=== PATIENT | female | born 1985 | race African-American/Black ===

== ENCOUNTER 2020-09-01 11:45 | Outpatient (REF) | payer MEDICARE, MEDICAID, SELFPAY ==
[2020-09-01 14:45] LABS: Alanine Aminotransferase 17 U/L (0-31); Albumin Level 4.3 g/dL (3.5-5.0); Alkaline Phosphatase 106 U/L (39-117); Aspartate Amino Transferase 14 U/L (5-31); Bilirubin Direct < 0.2 mg/dL (0.0-0.5); Bilirubin Total 0.4 mg/dL (0.0-1.0); Gamma Glutamyl Transpeptidase 63 U/L (7-33); Total Protein 7.3 g/dL (6.5-8.0)
== END 2020-09-01 11:46 | disposition home or self-care (01) ==
LOC: HO.10HDL 11:45
PROVIDERS: Visit Provider Internal Medicine Gastroenterology
DX: R93.2 Abnormal findings on diagnostic imaging of liver and biliary tract (principal)
CPT/HCPCS: 36415; 80076; 82977

== ENCOUNTER 2020-12-05 17:37 | Outpatient (REF) | payer MEDICARE, MEDICAID, SELFPAY ==
--- NOTE | ~2020-12-05 | XR_ITS ---
EXAMINATION: XR ABDOMEN COMPLETE CLINICAL INDICATION: Abdominal distention COMPARISON: None TECHNIQUE: 2 views of the abdomen. FINDINGS: There are slightly distended loops of small and large bowel questionable for an ileus. There is no evidence of obstruction. There is some stool seen in the colon. There is no evidence of free air. No calcifications are seen. Bony structures are unremarkable. XR/XR abdomen min 2V IMPRESSION: Slightly distended loops of small and large bowel questionable for an ileus. No evidence of obstruction or free air.
[2020-12-05 18:09] LABS: MANUAL DIFF FLAG NO
[2020-12-05 18:15] LABS: Basophils Percent Auto 0.6 % (0-2); Eosinophils Percent Auto 0.1 % (0-4); Hematocrit 42.2 % (37-47); Hemoglobin 13.6 g/dl (12.0-16.0); Imm Gran Abs Auto 0.04 X10*3/uL (0.00-0.03); Imm Gran Pct Auto 0.6 % (0.0-0.4); Lymphocytes Absolute Auto 2.3 X10*3/uL (1.2-4.9); Lymphocytes Percent Auto 32.7 % (20-40); Mean Corpuscular HGB Conc 32.2 g/dl (31.0-35.0); Mean Corpuscular Hemoglobin 30.1 pg (27.0-33.0); Mean Corpuscular Volume 93.4 fL (80-98); Mean Platelet Volume 12.6 fL (9.4-12.3); Monocytes Absolute Auto 0.7 X10*3/uL (0.1-1.2); Monocytes Percent Auto 10.2 % (2-11); Neutrophils Percent Auto 55.8 % (45-73); Platelet Count 186 X10*3/uL (160-400); Red Blood Count 4.52 X10*6/uL (4.20-5.50); Red Cell Distribution Width 12.8 % (11.0-16.0); White Blood Count 7.1 X10*3/uL (4.8-10.8)
[2020-12-05 18:34] LABS: Prothrombin Time 11.8 SEC (10.8-13.0)
[2020-12-05 18:38] LABS: Alanine Aminotransferase 19 U/L (0-31); Albumin Level 4.5 g/dL (3.5-5.0); Alkaline Phosphatase 121 U/L (39-117); Anion Gap 15 (12-20); Aspartate Amino Transferase 18 U/L (5-31); Bilirubin Total 0.3 mg/dL (0.0-1.0); Blood Urea Nitrogen 12 mg/dL (9-16); Calcium 9.6 mg/dL (8.4-10.2); Carbon Dioxide 29 mmol/L (22-29); Chloride 97 mmol/L (96-108); Estimated Glomerular Filt Rate > 60; Glucose Random 96 mg/dL (60-115); Partial Thromboplastin Time 39.9 SEC (24.1-38.0); Potassium 4.4 mmol/L (3.3-5.1); Sodium 137 mmol/L (135-145); Total Protein 7.8 g/dL (6.5-8.0)
== END 2020-12-05 17:38 | disposition home or self-care (01) ==
LOC: HO.XRAY 17:37
PROVIDERS: PCP Internal Medicine; Visit Provider Internal Medicine
DX: I10 Essential (primary) hypertension (principal); R14.0 Abdominal distension (gaseous); S30.1XXA Contusion of abdominal wall, initial encounter; X58.XXXA Exposure to other specified factors, initial encounter; Y93.9 Activity, unspecified; Y92.9 Unspecified place or not applicable; Y99.9 Unspecified external cause status
CPT/HCPCS: 36415; 74019; 80053; 85025; 85610; 85730

== ENCOUNTER 2021-04-24 16:51 | Outpatient (REF) | payer MEDICARE, MEDICAID, SELFPAY ==
[2021-04-24 17:40] LABS: Basophils Percent Auto 0.5 % (0-2); Eosinophils Percent Auto 0.1 % (0-4); Hemoglobin 13.2 g/dl (12.0-16.0); Imm Gran Abs Auto 0.04 X10*3/uL (0.00-0.03); Imm Gran Pct Auto 0.5 % (0.0-0.4); MANUAL DIFF FLAG SCAN; Mean Corpuscular Hemoglobin 30.6 pg (27.0-33.0); SCAN SMEAR FLAG 1
[2021-04-24 17:42] LABS: Hematocrit 39.9 % (37-47); Lymphocytes Absolute Auto 2.7 X10*3/uL (1.2-4.9); Lymphocytes Percent Auto 35.4 % (20-40); Mean Corpuscular HGB Conc 33.1 g/dl (31.0-35.0); Mean Corpuscular Volume 92.6 fL (80-98); Mean Platelet Volume 13.1 fL (9.4-12.3); Monocytes Absolute Auto 0.8 X10*3/uL (0.1-1.2); Monocytes Percent Auto 10.5 % (2-11); Platelet Count 164 X10*3/uL (160-400); Red Blood Count 4.31 X10*6/uL (4.20-5.50); Red Cell Distribution Width 12.6 % (11.0-16.0); White Blood Count 7.5 X10*3/uL (4.8-10.8)
[2021-04-24 17:43] LABS: PLT ABN DIST 1
[2021-04-24 17:51] LABS: Estimated Average Glucose 108 mg/dL; Hemoglobin A1c % 5.4 %
[2021-04-24 18:00] LABS: SLIDE REVIEW VERIFIED
[2021-04-24 18:01] LABS: Anion Gap 15 (12-20); Blood Urea Nitrogen 15 mg/dL (9-16); Calcium 9.8 mg/dL (8.4-10.2); Carbon Dioxide 26 mmol/L (22-29); Chloride 101 mmol/L (96-108); Cholesterol 200 mg/dL; Estimated Glomerular Filt Rate > 60; Glucose Random 125 mg/dL (60-115); HDL Cholesterol 46 mg/dL; LDL Cholesterol Calculated 116 mg/dl; Potassium 4.4 mmol/L (3.3-5.1); Sodium 138 mmol/L (135-145); Triglycerides 193 mg/dL
[2021-04-25 23:17] LABS: Prolactin 5.5 ng/mL
== END 2021-04-24 16:52 | disposition home or self-care (01) ==
LOC: HO.LAB 16:51
PROVIDERS: Visit Provider Psychiatry & Neurology Child & Adolescent Psychiatry
DX: F63.81 Intermittent explosive disorder (principal); Z79.899 Other long term (current) drug therapy
CPT/HCPCS: 36415; 80048; 80061; 83036; 84146; 85025

== ENCOUNTER 2021-05-25 16:46 | Outpatient (REF) | payer MEDICARE, MEDICAID, SELFPAY ==
--- NOTE | ~2021-05-25 | XR_ITS ---
EXAMINATION: XR CHEST CLINICAL INFORMATION: Shortness of breath. COMPARISON: None TECHNIQUE: 2 views of the chest were obtained. FINDINGS: No significant abnormality is noted involving the heart, lungs, mediastinum, bony thorax or soft tissues. Air is seen in the esophagus on the AP film but not the lateral film and is therefore likely of no significance. Consider contrast esophagram if there are any obstructive symptoms. XR/XR chest 2V IMPRESSION: Air in the esophagus on the AP film but not the lateral is likely insignificant. Consider contrast esophagram if there are any obstructive symptoms. Otherwise unremarkable examination.
[2021-05-25 17:36] LABS: Eosinophils Percent Auto 0.1 % (0-4); SCAN SMEAR FLAG 1
[2021-05-25 17:37] LABS: Basophils Absolute Auto 0.1 X10*3/uL (0.0-0.2); Basophils Percent Auto 0.6 % (0-2); Hematocrit 39.9 % (37-47); Imm Gran Abs Auto 0.04 X10*3/uL (0.00-0.03); Imm Gran Pct Auto 0.5 % (0.0-0.4); Lymphocytes Absolute Auto 2.2 X10*3/uL (1.2-4.9); Mean Corpuscular HGB Conc 32.6 g/dl (31.0-35.0); Mean Corpuscular Hemoglobin 30.2 pg (27.0-33.0); Mean Corpuscular Volume 92.6 fL (80-98); Monocytes Absolute Auto 0.7 X10*3/uL (0.1-1.2); Monocytes Percent Auto 8.8 % (2-11); Neutrophils Absolute Auto 4.9 X10*3/uL (2.0-8.3); Platelet Count 178 X10*3/uL (160-400); Red Blood Count 4.31 X10*6/uL (4.20-5.50); Red Cell Distribution Width 12.7 % (11.0-16.0)
[2021-05-25 17:40] LABS: MANUAL DIFF FLAG NO; PLT ABN DIST 1
[2021-05-25 17:44] LABS: Prothrombin Time 10.8 SEC (9.9-13.0)
[2021-05-25 18:21] LABS: Erythrocyte Sedimentation Rate 25 MM/HR (0-20)
[2021-05-25 18:47] LABS: Vitamin B12 429 pg/mL (200-900)
[2021-05-25 19:34] LABS: Estimated Average Glucose 111 mg/dL; Hemoglobin A1c % 5.5 %
[2021-05-25 19:40] LABS: Alanine Aminotransferase 18 U/L (0-31); Albumin Level 4.4 g/dL (3.5-5.0); Alkaline Phosphatase 118 U/L (39-117); Anion Gap 20 (12-20); Aspartate Amino Transferase 18 U/L (5-31); Bilirubin Total 0.3 mg/dL (0.0-1.0); Blood Urea Nitrogen 11 mg/dL (9-16); Calcium 9.3 mg/dL (8.4-10.2); Carbon Dioxide 24 mmol/L (22-29); Chloride 98 mmol/L (96-108); Cholesterol 199 mg/dL; Estimated Glomerular Filt Rate > 60; Glucose Random 151 mg/dL (60-115); HDL Cholesterol 42 mg/dL; LDL Cholesterol Calculated 133 mg/dl; Potassium 4.6 mmol/L (3.3-5.1); Sodium 137 mmol/L (135-145); Total Protein 7.5 g/dL (6.5-8.0); Triglycerides 122 mg/dL
[2021-05-25 19:59] LABS: Free T4 (Free Thyroxine) 0.93 ng/dL (0.71-1.85); Thyroid Stimulating Hormone 2.04 uIU/mL (0.32-4.0)
== END 2021-05-25 16:47 | disposition home or self-care (01) ==
LOC: HO.XRAY 16:46
PROVIDERS: Absent Provider Internal Medicine; PCP Internal Medicine; Visit Provider Nurse Practitioner Family
DX: R06.02 Shortness of breath (principal); R23.8 Other skin changes; E78.2 Mixed hyperlipidemia; E78.00 Pure hypercholesterolemia, unspecified
CPT/HCPCS: 36415; 71046; 80053; 80061; 82607; 82746; 83036; 84439; 84443; 85025; 85610; 85652

== ENCOUNTER 2021-07-17 16:33 | Outpatient (REF) | payer MEDICARE, MEDICAID, SELFPAY ==
[2021-07-17 17:32] LABS: Hemoglobin 13.4 g/dl (12.0-16.0); Imm Gran Abs Auto 0.05 X10*3/uL (0.00-0.03); Imm Gran Pct Auto 0.8 % (0.0-0.4); SCAN SMEAR FLAG 1
[2021-07-17 17:34] LABS: Basophils Percent Auto 0.6 % (0-2); Eosinophils Percent Auto 0.3 % (0-4); Hematocrit 40.6 % (37.0-47.0); Lymphocytes Absolute Auto 2.3 X10*3/uL (1.2-4.9); Lymphocytes Percent Auto 37.3 % (20-40); Mean Corpuscular Hemoglobin 30.1 pg (27.0-33.0); Mean Corpuscular Volume 91.2 fL (80.0-98.0); Mean Platelet Volume 12.8 fL (9.4-12.3); Monocytes Absolute Auto 1.1 X10*3/uL (0.1-1.2); Monocytes Percent Auto 17.6 % (2-11); Neutrophils Absolute Auto 2.7 x10*3/uL (2.0-8.3); Neutrophils Percent Auto 43.4 % (45-73); Platelet Count 174 X10*3/uL (160-400); Red Blood Count 4.45 X10*6/uL (4.20-5.50); Red Cell Distribution Width 13.4 % (11.0-16.0); White Blood Count 6.3 X10*3/uL (4.8-10.8)
[2021-07-17 17:37] LABS: PLT ABN DIST 1
[2021-07-17 17:44] LABS: Prothrombin Time 11.2 SEC (9.9-13.0)
[2021-07-17 17:47] LABS: Partial Thromboplastin Time 39.8 SEC (24.1-38.0)
== END 2021-07-17 16:34 | disposition home or self-care (01) ==
LOC: HO.LAB 16:33
PROVIDERS: PCP Internal Medicine; Visit Provider Internal Medicine
DX: T14.8XXA Other injury of unspecified body region, initial encounter (principal)
CPT/HCPCS: 36415; 85025; 85610; 85730

== ENCOUNTER 2021-08-15 15:03 | Outpatient (REF) | payer MEDICARE, MEDICAID, SELFPAY ==
[2021-08-15 15:44] LABS: Leukocytes Stool Qualitative NEGATIVE (NEGATIVE)
[2021-08-15 16:39] LABS: CDiff Gene PCR NEGATIVE (Negative)
== END 2021-08-15 15:04 | disposition home or self-care (01) ==
LOC: HO.LNP 15:03
PROVIDERS: Visit Provider Internal Medicine Gastroenterology
DX: R19.7 Diarrhea, unspecified (principal)
CPT/HCPCS: 87045; 87046; 87177; 87209; 87493; 89055

== ENCOUNTER 2021-08-21 16:31 | Outpatient (REF) | payer MEDICARE, MEDICAID, SELFPAY ==
[2021-08-21 16:51] LABS: MANUAL DIFF FLAG NO
[2021-08-21 17:30] LABS: Basophils Absolute Auto 0.1 X10*3/uL (0.0-0.2); Basophils Percent Auto 0.5 % (0-2); Eosinophils Absolute Auto 0.1 X10*3/uL (0.0-0.4); Eosinophils Percent Auto 0.5 % (0-4); Hematocrit 40.5 % (37.0-47.0); Hemoglobin 13.3 g/dl (12.0-16.0); Imm Gran Abs Auto 0.08 X10*3/uL (0.00-0.03); Imm Gran Pct Auto 0.9 % (0.0-0.4); Lymphocytes Percent Auto 32.5 % (20-40); Mean Corpuscular HGB Conc 32.8 g/dl (31.0-35.0); Mean Corpuscular Hemoglobin 30.3 pg (27.0-33.0); Mean Corpuscular Volume 92.3 fL (80.0-98.0); Mean Platelet Volume 12.5 fL (9.4-12.3); Monocytes Absolute Auto 1.1 X10*3/uL (0.1-1.2); Monocytes Percent Auto 12.1 % (2-11); Neutrophils Absolute Auto 4.9 x10*3/uL (2.0-8.3); Neutrophils Percent Auto 53.5 % (45-73); Platelet Count 186 X10*3/uL (160-400); Red Blood Count 4.39 X10*6/uL (4.20-5.50); Red Cell Distribution Width 13.8 % (11.0-16.0); White Blood Count 9.2 X10*3/uL (4.8-10.8)
[2021-08-21 17:39] LABS: Estimated Average Glucose 120 mg/dL; Hemoglobin A1c % 5.8 %
[2021-08-21 17:43] LABS: Anion Gap 15 (12-20); Blood Urea Nitrogen 17 mg/dL (9-16); Calcium 10.2 mg/dL (8.4-10.2); Carbon Dioxide 28 mmol/L (22-29); Chloride 98 mmol/L (96-108); Cholesterol 220 mg/dL; Estimated Glomerular Filt Rate > 60; Glucose Random 93 mg/dL (60-115); HDL Cholesterol 48 mg/dL; LDL Cholesterol Calculated 128 mg/dl; Potassium 4.5 mmol/L (3.3-5.1); Sodium 136 mmol/L (135-145); Triglycerides 221 mg/dL
[2021-08-21 18:03] LABS: Thyroid Stimulating Hormone 3.57 uIU/mL (0.32-4.0)
[2021-08-22 08:11] LABS: Prolactin 11.2 ng/mL
== END 2021-08-21 16:32 | disposition home or self-care (01) ==
LOC: HO.LAB 16:31
PROVIDERS: Visit Provider Psychiatry & Neurology Child & Adolescent Psychiatry
DX: F63.81 Intermittent explosive disorder (principal); F71 Moderate intellectual disabilities; Z79.899 Other long term (current) drug therapy
CPT/HCPCS: 36415; 80048; 80061; 83036; 84146; 84443; 85025

== ENCOUNTER 2021-08-29 14:40 | Outpatient (REF) | payer MEDICARE, MEDICAID, SELFPAY ==
--- NOTE | ~2021-08-29 | XR_ITS ---
EXAMINATION: XR CHEST CLINICAL INFORMATION: Cough COMPARISON: Previous chest x-ray April 2021 TECHNIQUE: 2 views of the chest were obtained. FINDINGS: No significant abnormality is noted involving the heart, lungs, mediastinum, bony thorax or soft tissues. XR/XR chest 2V IMPRESSION: Unremarkable examination.
== END 2021-08-29 14:41 | disposition home or self-care (01) ==
LOC: HO.LAB 14:40
PROVIDERS: PCP Internal Medicine; Visit Provider Internal Medicine
DX: R05.9 Cough, unspecified (principal)
CPT/HCPCS: 36415; 71046; 87045; 87046; 87177; 87209

== ENCOUNTER 2021-10-12 14:21 | Outpatient (REF) | payer MEDICARE, MEDICAID, SELFPAY ==
[2021-10-12 16:45] LABS: Influenza A PCR NEGATIVE (Negative); Influenza B PCR NEGATIVE (Negative); Resp Syncy Virus RNA Qual PCR NEGATIVE (Negative); SARS COV2 PCR INHOUSE NEGATIVE (Negative)
== END 2021-10-12 14:22 | disposition home or self-care (01) ==
LOC: HO.LAB 14:21
PROVIDERS: PCP Internal Medicine; Visit Provider Internal Medicine
DX: Z20.822 Contact with and (suspected) exposure to COVID-19 (principal); R05.9 Cough, unspecified
CPT/HCPCS: 0241U

== ENCOUNTER 2021-11-24 08:41 | Outpatient (REF) | payer MEDICARE, MEDICAID, SELFPAY ==
--- NOTE | ~2021-11-24 | US_ITS ---
EXAMINATION: US ABDOMEN COMPLETE CLINICAL INFORMATION: Elevated LFTs. Liver mass. COMPARISON: X-ray abdomen 12/05/2020. MRI abdomen 05/07/2018. CT abdomen 08/13/2016. Ultrasound abdomen limited 08/13/2016. Ultrasound abdomen complete 03/29/2016. TECHNIQUE: Real-time imaging of the abdominal viscera. FINDINGS: PANCREAS: Normal. ABDOMINAL AORTA: The proximal, mid, and distal segments are normal in caliber. INFERIOR VENA CAVA: Visualized portions are normal. LIVER: The liver is normal in size. The liver contour is normal. There is diffuse increased liver parenchymal echogenicity, consistent with hepatic steatosis. In the left lobe of the liver there is a heterogeneously hypoattenuating mass measuring 7.8 x 3.9 x 5.9 cm. This has associated mild Doppler vascularity. The overall size is without significant change, to slightly decreased from prior. There is no intrahepatic biliary duct dilatation seen. GALLBLADDER: Normal. The gallbladder is physiologically distended without evidence of stones, sludge, polyps, wall thickening or pericholecystic fluid. COMMON BILE DUCT: Normal in caliber measuring 0.4 cm in diameter. RIGHT KIDNEY: There is a hyperechoic area at the upper pole measuring 0.7 cm, possibly an angiomyolipoma. No hydronephrosis. No renal calculi. The kidney measures 9.3 cm in maximum dimension. LEFT KIDNEY: Normal. No hydronephrosis. No renal calculi or focal parenchymal lesions. The kidney measures 10.1 cm in maximum dimension. SPLEEN: Normal. The spleen measures 11.0 cm in maximum dimension. FREE FLUID: None. US/US abdomen complete IMPRESSION: Redemonstration of the mass in the left lobe of the liver which is similar to slightly decreased in size compared to previous imaging. No new liver lesion. Possible small angiomyolipoma in the right kidney.
== END 2021-11-24 08:42 | disposition home or self-care (01) ==
LOC: HO.HMGCX 08:41
PROVIDERS: Visit Provider Internal Medicine
DX: R79.89 Other specified abnormal findings of blood chemistry (principal); R16.0 Hepatomegaly, not elsewhere classified
CPT/HCPCS: 76700

== ENCOUNTER → 2021-12-26 10:18 | Outpatient (BNVA) | payer MEDICARE, MEDICAID, SELFPAY | PROVIDERS: PCP Internal Medicine; Visit Provider Dietitian, Registered | DX: R73.02 Impaired glucose tolerance (oral) (principal); Z71.3 Dietary counseling and surveillance | CPT/HCPCS: 97802 ==

== ENCOUNTER 2022-02-02 10:35 | Outpatient (REF) | payer MEDICARE, MEDICAID, SELFPAY ==
--- NOTE | 2022-02-02 10:56 | ECG_ITS ---
Test Reason : high risk meds Blood Pressure : / mmHG Vent. Rate : 080 BPM Atrial Rate : 080 BPM P-R Int : 160 ms QRS Dur : 074 ms QT Int : 362 ms P-R-T Axes : 039 014 031 degrees QTc Int : 417 ms Normal sinus rhythm Normal ECG When compared with ECG of 27-AUG-2019 16:27, No significant change was found Referred By: Dylon Ahumada Electronically Signed By:ABIMAEL DAIGLE
[2022-02-02 10:57] LABS: MANUAL DIFF FLAG NO
[2022-02-02 11:09] LABS: Basophils Percent Auto 0.3 % (0-2); Eosinophils Percent Auto 0.5 % (0-4); Hematocrit 40.3 % (37.0-47.0); Hemoglobin 13.4 g/dl (12.0-16.0); Imm Gran Abs Auto 0.04 X10*3/uL (0.00-0.03); Imm Gran Pct Auto 0.5 % (0.0-0.4); Lymphocytes Absolute Auto 2.1 X10*3/uL (1.2-4.9); Lymphocytes Percent Auto 26.9 % (20-40); Mean Corpuscular HGB Conc 33.3 g/dl (31.0-35.0); Mean Corpuscular Hemoglobin 30.9 pg (27.0-33.0); Mean Corpuscular Volume 92.9 fL (80.0-98.0); Mean Platelet Volume 12.2 fL (9.4-12.3); Monocytes Absolute Auto 1.1 X10*3/uL (0.1-1.2); Monocytes Percent Auto 13.7 % (2-11); Neutrophils Absolute Auto 4.6 x10*3/uL (2.0-8.3); Neutrophils Percent Auto 58.1 % (45-73); Platelet Count 213 X10*3/uL (160-400); Red Blood Count 4.34 X10*6/uL (4.20-5.50); White Blood Count 7.9 X10*3/uL (4.8-10.8)
[2022-02-02 11:17] LABS: Estimated Average Glucose 111 mg/dL; Hemoglobin A1c % 5.5 %
[2022-02-02 12:36] LABS: Alanine Aminotransferase 12 U/L (0-31); Albumin Level 4.3 g/dL (3.5-5.0); Alkaline Phosphatase 108 U/L (39-117); Anion Gap 15 (12-20); Aspartate Amino Transferase 13 U/L (5-31); Bilirubin Total 0.4 mg/dL (0.0-1.0); Blood Urea Nitrogen 13 mg/dL (9-16); Calcium 9.6 mg/dL (8.4-10.2); Carbon Dioxide 29 mmol/L (22-29); Chloride 99 mmol/L (96-108); Cholesterol 225 mg/dL; Estimated Glomerular Filt Rate > 60; Glucose Random 83 mg/dL (60-115); HDL Cholesterol 40 mg/dL; LDL Cholesterol Calculated 144 mg/dl; Potassium 4.5 mmol/L (3.3-5.1); Sodium 138 mmol/L (135-145); Total Protein 7.5 g/dL (6.5-8.0); Triglycerides 209 mg/dL
[2022-02-02 12:46] LABS: Thyroid Stimulating Hormone 1.88 uIU/mL (0.32-4.0)
== END 2022-02-02 10:36 | disposition home or self-care (01) ==
LOC: HO.LAB 10:35
PROVIDERS: Psychiatry & Neurology Child & Adolescent Psychiatry; Absent Provider Ophthalmology; PCP Internal Medicine; Visit Provider Internal Medicine
DX: F63.81 Intermittent explosive disorder (principal); Z79.899 Other long term (current) drug therapy
CPT/HCPCS: 36415; 80053; 80061; 83036; 84146; 84443; 85025; 93005

== ENCOUNTER 2022-06-18 11:23 | Outpatient (REF) | payer MEDICARE, MEDICAID, SELFPAY ==
[2022-06-21 01:57] LABS: HPV mRNA E6/E7 rflx Not Detected (Not Detected)
== END 2022-06-18 11:24 | disposition home or self-care (01) ==
LOC: HO.LNP 11:23
PROVIDERS: Visit Provider Advanced Practice Midwife
DX: Z01.419 Encounter for gynecological examination (general) (routine) without abnormal findings (principal); Z11.51 Encounter for screening for human papillomavirus (HPV)
CPT/HCPCS: 87624; 88142

== ENCOUNTER 2022-09-12 13:28 | Outpatient (REF) | payer MEDICARE, MEDICAID, SELFPAY ==
--- NOTE | ~2022-09-12 | XR_ITS ---
EXAMINATION: XR CHEST CLINICAL INFORMATION: Cough. COMPARISON: Chest radiograph 08/29/2021. TECHNIQUE: 2 views of the chest. FINDINGS: Clear lungs. No pneumothorax or pleural effusion. Unchanged cardiomediastinal silhouette. XR/XR chest 2V IMPRESSION: Clear lungs.
[2022-09-12 13:47] LABS: MANUAL DIFF FLAG NO
[2022-09-12 14:37] LABS: Estimated Average Glucose 117 mg/dL; Hemoglobin A1c % 5.7 %
[2022-09-12 14:41] LABS: Basophils Absolute Auto 0.1 X10*3/uL (0.0-0.2); Basophils Percent Auto 0.5 % (0-2); Eosinophils Absolute Auto 0.1 X10*3/uL (0.0-0.4); Eosinophils Percent Auto 1.2 % (0-4); Hemoglobin 13.4 g/dl (12.0-16.0); Imm Gran Abs Auto 0.05 X10*3/uL (0.00-0.03); Imm Gran Pct Auto 0.5 % (0.0-0.4); Lymphocytes Absolute Auto 2.5 X10*3/uL (1.2-4.9); Lymphocytes Percent Auto 27.3 % (20-40); Mean Corpuscular HGB Conc 32.7 g/dl (31.0-35.0); Mean Corpuscular Hemoglobin 30.2 pg (27.0-33.0); Mean Corpuscular Volume 92.3 fL (80.0-98.0); Mean Platelet Volume 13.2 fL (9.4-12.3); Monocytes Percent Auto 11.3 % (2-11); Neutrophils Absolute Auto 5.5 x10*3/uL (2.0-8.3); Neutrophils Percent Auto 59.2 % (45-73); Platelet Count 172 X10*3/uL (160-400); Red Blood Count 4.44 X10*6/uL (4.20-5.50); Red Cell Distribution Width 13.3 % (11.0-16.0); White Blood Count 9.2 X10*3/uL (4.8-10.8)
[2022-09-12 15:01] LABS: B Type Natriuretic Peptide 22 pg/mL (<100)
[2022-09-12 15:21] LABS: Alanine Aminotransferase 12 U/L (0-31); Albumin Level 4.1 g/dL (3.5-5.0); Alkaline Phosphatase 93 U/L (39-117); Anion Gap 15 (12-20); Aspartate Amino Transferase 20 U/L (5-31); Bilirubin Total 0.2 mg/dL (0.0-1.0); Blood Urea Nitrogen 16 mg/dL (9-16); Calcium 9.5 mg/dL (8.4-10.2); Carbon Dioxide 27 mmol/L (22-29); Chloride 99 mmol/L (96-108); Estimated Glomerular Filt Rate > 60; Glucose Random 108 mg/dL (60-115); Potassium 4.8 mmol/L (3.3-5.1); Sodium 136 mmol/L (135-145); Total Protein 7.6 g/dL (6.5-8.0)
[2022-09-12 15:32] LABS: Free T4 (Free Thyroxine) 0.93 ng/dL (0.71-1.85); Thyroid Stimulating Hormone 2.29 uIU/mL (0.32-4.0); Vitamin D 25-OH Total 24.7 ng/mL (>30)
[2022-09-12 15:47] LABS: Folate 12.6 ng/mL (> or = 4.0); Vitamin B12 482 pg/mL (200-900)
== END 2022-09-12 13:29 | disposition home or self-care (01) ==
LOC: HO.XRAY 13:28
PROVIDERS: PCP Internal Medicine; Visit Provider Internal Medicine
DX: R73.02 Impaired glucose tolerance (oral) (principal); R05.9 Cough, unspecified; R58 Hemorrhage, not elsewhere classified; E03.9 Hypothyroidism, unspecified; E55.9 Vitamin D deficiency, unspecified
CPT/HCPCS: 36415; 71046; 80053; 80164; 82306; 82607; 82746; 83036; 83880; 84439; 84443; 85025

== ENCOUNTER 2023-03-14 14:02 | Outpatient (AMB) | payer MEDICARE, MEDICAID, SELFPAY ==
[2023-03-14 14:09] VITALS: BP 118/82; PULSE 89; O2SAT 100; BMI 40.0
--- NOTE | 2023-03-14 14:09 | AM.OFFVISMDC ---
Intake Vital Signs 03/14/23 14:09 Height 4 ft 9 in Weight 185 lb BMI 40.0 BP 118/82 Blood Pressure Location Lt brachial Position Sitting Pulse 89 Pulse Source Pulse Oximeter Temp Source Skin Pulse Oximetry (%) 100 Oxygen Delivery Method Room Air Intake Visit Reasons: SAWV Intake Note: Patient is here for an Annual Wellness Visit. Corrections Corporal Required: No Allergies amoxicillin [Augmentin] Allergy (Unknown, Verified 03/14/23 14:20) Unknown clavulanic acid [Augmentin] Allergy (Unknown, Verified 03/14/23 14:20) Unknown Medication List - Last Reconciled 03/14/23 by WENDY Deras acetaminophen ER (Mapap Arthritis Pain) 650 mg PO Q4H PRN ammonium lactate 12% appl topical bacitracin apply a dab topical TO AFFECTED AREA TWICE WEEKLY PRN; bisoprolol fumarate 5 mg (1/2 x 10 mg) PO QAM 90 days blood pressure monitor (Blood Pressure Kit) As directed TWICE PER DAY cetirizine (Zyrtec) 10 mg PO DAILY 30 days cholecalciferol (vitamin D3) 25 mcg PO DAILY 90 days citalopram 10 mg PO DAILY clindamycin phosphate 1% 1 appl topical BID cromolyn 4% 1 drp ophthalmic (eye) QID PRN 7 days disposable gloves (Nitrile Exam Gloves) MEDIUM SIZE DX: F79, R32 EXTERNAL EIGHT TIMES A DAY divalproex ER 500 mg PO BID 90 days fluticasone propionate 50 mcg/actuation (Flonase Allergy Relief) 2 sprays intranasal DAILY guaifenesin (Siltussin SA) 200 mg (10 mL) PO Q4H PRN methenamine hippurate (Hiprex) 1 g PO BID 90 days Fall Risk Assessment Fall risk assessment: No Falls in past year Date Fall Risk Assessed: 03/14/23 HPI SAWV HPI Details Patient is a 38-year-old female presents today for subsequent wellness visit. Patient of Dr. Llanos. Patient is accompanied today by a engineering group leader and her guardian sister Denise. Medical history significant for epilepsy-followed by [facility] Neurology, dilated cardiomyopathy-followed by [facility] cardiology, morbid obesity, mental disability, hyperlipidemia, aortic stenosis, impaired glucose tolerance among others. Patient is up-to-date with immunizations. Pap smear normal 05/2022 with [facility]. Patient has order for A1c, they were encouraged to complete blood work. Cachil Dehe of care was reviewed with the guardian and engineering group leader and they were provided with a screening schedule. The guardian was provided with healthcare proxy and MOLST forms. Copy was made of the guardian document and placed in scanning bin. [facility] Medical History (Updated 03/14/23 @ 16:56 by WENDY Deras) Abdominal bloating Abscess of right axilla Aortic insufficiency COVID-19 virus infection Dilated cardiomyopathy Epilepsy Liver mass Mental disability Mixed hyperlipidemia Morbid obesity with BMI of 40.0-44.9, adult Postprandial diarrhea Superficial bruising of abdominal wall UTI (urinary tract infection) Vitamin D deficiency Surgical History No pertinent past surgical history Family History Father No problems noted. Mother Heart problem Social History Housing: Assisted Living Facility Alcohol intake: never Patient Tobacco Use Status: Never used Tobacco e-Cigarette/Vaping Use: Never Used service: No Current occupational status: disabled Cognitive needs: Yes Hearing needs: No Vision needs: Yes Questionnaire Medicare Wellness Checkup What [age] your [age]?: 65-69 (38) What gender do you identify with?: female During the past 4 weeks, how much have you been bothered by emotional problems such as feeling anxious, depressed, irritable, sad or downhearted, and blue?: not at all During the past 4 weeks, has your physical & emotional health limited your social activities with family, friends, neighbors, or groups?: not at all During the past 4 weeks, how much bodily pain have you generally had?: no pain During the past 4 weeks, was someone available to help you if you needed & wanted help?: yes, as much as I wanted During the past 4 weeks, what was the hardest physical activity you could do for at least 2 minutes?: very light Can you get to places out of walking distance without help? (For eg., can you travel alone on buses, taxis or drive your car?): No Can you go shopping for groceries or clothes without someone's help?: No Can you prepare your own meals?: No Can you do your housework without help?: No Because of any health problems, do you need the help of another person with your personal care needs such as eating, bathing, dressing or getting around the house?: Yes Can you handle your own money without help?: No During the past 4 weeks, how would you rate your health in general?: good During the past 4 weeks how have things been going for you?: pretty well Are you having difficulties driving your car?: not applicable, I don't use a car Do you always fasten your seat belt when you are in a car?: yes, usually During past 4 weeks, have you been bothered by the following: never: Falling or dizzy when standing up, Sexual problems? and Problems using the telephone?, seldom: Tiredness or fatigue? and sometimes: Trouble eating well? and Teeth or denture problems? Have you fallen 2 or more times in the past year?: No Are you afraid of falling?: No Are you a smoker?: no During the past 4 weeks, how many drinks of wine, beer, or other alcoholic beverages did you have?: no alcohol at all Do you exercise for about 20 minutes 3 or more times a week?: yes, some of the time How often do you have trouble taking medicines the way you have been told to take them?: I always take medicine as prescribed How confident are you that you can control & manage most of your health problems?: somewhat confident What is your race?: White Mini Mental State Exam (MMSE) Orientation What is the (year) (season) (date) (day) (month)?: month (a and o to self only ) Score Score: 1 Activity of Daily Living Bathing - sponge bath, tub bath or shower: receives help in bathing only one body part (such as back or leg) Dressing - getting clothes from closets & drawers, including inner/outer garments & fasteners.: gets clothes & gets dressed without help, except for help tying shoes Toileting - going to the 'toilet room' for urine/bowel elimination & cleaning self/arranging clothes: receives help going to toilet room, cleaning self or arranging clothes Transfer: moves in & out of bed and chair without help (may use support object) Continence: controls urination/bowel movements completely by self Feeding: feeds self without help Total Score: 0 Information obtained from: informant Using telephone: dependent Traveling: dependent Shopping: dependent Preparing meals: dependent Housework: dependent Taking medicine: dependent Managing money: dependent PHQ-9 Over the last 2 weeks, how often have you been bothered by any of the following problems? 1. Little interest or pleasure in doing things: not at all 2. Feeling down, depressed, or hopeless: not at all 3. Trouble falling or staying asleep, or sleeping too much: not at all 4. Feeling tired or having little energy: not at all 5. Poor appetite or overeating: not at all 6. Feeling bad about yourself - or that you are a failure or have let yourself or your family down: not at all 7. Trouble concentrating on things, such as reading the newspaper or watching television: not at all 8. Moving or speaking so slowly that other people could have noticed. Or the opposite - being so fidgety or restless that you have been moving around a lot more than usual: not at all 9. Thoughts that you would be better off or of hurting yourself in some way: not at all Total score: 0 Depression Screening Interpretation: Negative 48249 - PHQ-9 Billing: Yes Source: Developed by Drs. Jonas Stoll, Patsy Vidal, Fabián Fernandes and colleagues, with an educational haile from [employer]. SAVANNAH-7 AMB Questionnaire SAVANNAH-7 Date SAVANNAH - 7 assessed: 03/14/23 Feeling nervous, anxious, or on edge: 0 = Not at all Not being able to stop or control worryin = Not at all Worrying too much about different things: 0 = Not at all Trouble relaxin = Not at all Being so restless that it is hard to sit still: 0 = Not at all Becoming easily annoyed or irritable: 0 = Not at all Feeling afraid as if something awful might happen: 0 = Not at all Total SAVANNAH-7 score (0-4 normal; 5-9 mild; 10-14 moderate; 15-21 severe): 0 Source: Developed by Drs. Jonas Stoll, Fabián Jean and colleagues, with an educational haile from [employer]. SAVANNAH-7 Assessment Billing SAVANNAH-7 Assessment Tool: SAVANNAH-7 Assessment 06047 AUDIT C Alcohol Use Questionnaire (AUDIT-C) 1. How often do you have a drink containing alcohol?: Never 3. How often do you have six or more drinks on one occasion?: Never Total Score: 0 Score Reviewed/Action Taken: No Thrive Questionnaire Date Thrive assessed: 03/14/23 I am a: Patient What is your living situation today?: I have a steady place to live Within the past 12 months, did the food you bought not last and you didn't have the money to get more?: Never true Within the past 12 months, did you worry whether your food would run out before you got money to buy more?: Never true Currently or been in a relationship where the following occur: no concerns reported Physical Exam Vital Signs: Last Vital Signs Pulse 89 03/14/23 14:09 BP 118/82 03/14/23 14:09 Pulse Ox 100 03/14/23 14:09 Oxygen Delivery Method Room Air 03/14/23 14:09 BMI result Body Mass Index 40.0 Const General: cooperative and no acute distress Orientation/consciousness: oriented to person HEENT Other: Whisper test: fail Neuro Other: Balance: Normal Get up and walk: unable to Romberg: negative Tandem gait: unable to General: oriented to person Assessment & Plan Assessment & Plan (1) Impaired glucose tolerance: Comment: Per staff reports: diarrhea is lessening after switching to lactose free options May recommend assessing for celiac if symptoms continue Code(s): R73.02 - Impaired glucose tolerance (oral) Plan: They were encouraged to complete A1c blood work (2) Mixed hyperlipidemia: Code(s): E78.2 - Mixed hyperlipidemia Plan: Low-cholesterol diet and weight loss (3) Mental disability: Code(s): F79 - Unspecified intellectual disabilities (4) Morbid obesity with BMI of 40.0-44.9, adult: Code(s): E66.01 - Morbid (severe) obesity due to excess calories; Z68.41 - Body mass index [BMI] 40.0-44.9, adult Plan: Healthy food choices and exercise as tolerated (5) Dilated cardiomyopathy: Code(s): I42.0 - Dilated cardiomyopathy Plan: Continue to follow-up with [facility] cardiology (6) Epilepsy: Comment: EEG negative February 2019 Code(s): G40.909 - Epilepsy, unspecified, not intractable, without status epilepticus Qualifiers: Epilepsy type: unspecified Intractability: not intractable Status epilepticus: without status epilepticus Qualified Code(s): G40.909 - Epilepsy, unspecified, not intractable, without status epilepticus Plan: Continue to follow-up with [facility] Neurology (7) Medicare annual wellness visit, subsequent: Code(s): Z00.00 - Encounter for general adult medical examination without abnormal findings Quality Reporting (2019) Fall Risk Screening ([facility] 139) Last assessed Fall Risk: 03/14/23 Fall risk assessment: No Falls in past year Depression/Bipolar (159/160/161/177) PHQ-9: Total score: 0 Coding Level of Care Code Medicare Subsequent (G0439) Diagnoses Impaired glucose tolerance R73.02 Mixed hyperlipidemia E78.2 Mental disability F79 Morbid obesity with BMI of 40.0-44.9, adult E66.01; Z68.41 Dilated cardiomyopathy I42.0 Epilepsy G40.909 Epilepsy type: unspecified Intractability: not intractable Status epilepticus: without status epilepticus Medicare annual wellness visit, subsequent Z00.00 CPT Codes Advance Care Planning - Time spent: 1-15 minutes, not on file ([id number]) Additional Codes SAVANNAH-7 Assessment Billing - SAVANNAH-7 Assessment Tool: SAVANNAH-7 Assessment [id number] ([id number]) Advance Care Planning Date of discussion: 03/14/23 Who was present: pt, guardian, client solutions specialist Forms completed: None Time spent: 1-15 minutes, not on file Actual minutes spent: 2 Did not discuss due to Cultural/Spiritual beliefs: No
== END 2023-03-14 14:42 | disposition home or self-care (01) ==
PROVIDERS: PCP Internal Medicine; Visit Provider Nurse Practitioner Family
DX: Z00.00 Encounter for general adult medical examination without abnormal findings (principal); E66.01 Morbid (severe) obesity due to excess calories; Z68.41 Body mass index [BMI] 40.0-44.9, adult; I42.0 Dilated cardiomyopathy; G40.909 Epilepsy, unspecified, not intractable, without status epilepticus; R73.02 Impaired glucose tolerance (oral); E78.2 Mixed hyperlipidemia; F79 Unspecified intellectual disabilities
CPT/HCPCS: 1124F; G0439

== ENCOUNTER 2023-03-18 06:10 | Outpatient (REF) | payer MEDICARE, MEDICAID, SELFPAY ==
[2023-03-18 07:21] LABS: Hemoglobin 13.5 g/dl (12.0-16.0); Mean Corpuscular Volume 94.2 fL (80.0-98.0); SCAN SMEAR FLAG 1
[2023-03-18 07:23] LABS: Basophils Percent Auto 0.5 % (0-2); Eosinophils Absolute Auto 0.1 X10*3/uL (0.0-0.4); Hematocrit 42.5 % (37.0-47.0); Imm Gran Abs Auto 0.05 X10*3/uL (0.00-0.03); Imm Gran Pct Auto 0.6 % (0.0-0.4); Lymphocytes Absolute Auto 2.7 X10*3/uL (1.2-4.9); Lymphocytes Percent Auto 33.9 % (20-40); MANUAL DIFF FLAG SCAN; Mean Corpuscular HGB Conc 31.8 g/dl (31.0-35.0); Mean Corpuscular Hemoglobin 29.9 pg (27.0-33.0); Monocytes Absolute Auto 1.1 X10*3/uL (0.1-1.2); Monocytes Percent Auto 13.3 % (2-11); Neutrophils Absolute Auto 4.1 x10*3/uL (2.0-8.3); Neutrophils Percent Auto 50.7 % (45-73); PLT CLUMP 1; Red Blood Count 4.51 X10*6/uL (4.20-5.50); Red Cell Distribution Width 12.8 % (11.0-16.0)
[2023-03-18 07:27] LABS: PLT ABN DIST 1
[2023-03-18 07:58] LABS: Estimated Average Glucose 105 mg/dL; Hemoglobin A1c % 5.3 %
[2023-03-18 08:16] LABS: Alanine Aminotransferase 14 U/L (0-31); Alkaline Phosphatase 85 U/L (39-117); Anion Gap 19 (12-20); Aspartate Amino Transferase 14 U/L (5-31); Bilirubin Total 0.3 mg/dL (0.0-1.0); Blood Urea Nitrogen 11 mg/dL (9-16); Calcium 9.6 mg/dL (8.4-10.2); Carbon Dioxide 23 mmol/L (22-29); Chloride 103 mmol/L (96-108); Cholesterol 190 mg/dL; Estimated Glomerular Filt Rate > 60; Glucose Random 91 mg/dL (60-115); HDL Cholesterol 37 mg/dL; LDL Cholesterol Calculated 117 mg/dl; Potassium 4.5 mmol/L (3.3-5.1); Sodium 140 mmol/L (135-145); Total Protein 7.5 g/dL (6.5-8.0); Triglycerides 181 mg/dL
[2023-03-18 08:19] LABS: Free T4 (Free Thyroxine) 0.78 ng/dL (0.71-1.85); Thyroid Stimulating Hormone 2.32 uIU/mL (0.32-4.0); Vitamin D 25-OH Total 29.5 ng/mL (>30)
[2023-03-18 08:32] LABS: Folate 9.6 ng/mL (> or = 4.0); Vitamin B12 562 pg/mL (200-900)
[2023-03-18 08:34] LABS: Platelet Count 128 X10*3/uL (160-400)
[2023-03-18 08:35] LABS: SLIDE REVIEW VERIFIED
== END 2023-03-18 06:11 | disposition home or self-care (01) ==
LOC: HO.LAB 06:10
PROVIDERS: PCP Internal Medicine; Visit Provider Internal Medicine
DX: E78.00 Pure hypercholesterolemia, unspecified (principal); R73.02 Impaired glucose tolerance (oral); E55.9 Vitamin D deficiency, unspecified
CPT/HCPCS: 36415; 80053; 80061; 82306; 82607; 82746; 83036; 84439; 84443; 85025

== ENCOUNTER 2023-03-22 14:15 | Outpatient (REF) | payer MEDICARE, MEDICAID, SELFPAY | END 2023-03-22 14:16 | disposition home or self-care (01) | LOC: HO.SH 14:15 | PROVIDERS: Visit Provider Internal Medicine | DX: H90.3 Sensorineural hearing loss, bilateral (principal) | CPT/HCPCS: 92550; 92553; 92555; 92583; 92588 ==

== ENCOUNTER 2023-06-26 09:40 | Outpatient (AMB) | payer MEDICARE, MEDICAID, SELFPAY ==
[2023-06-26 09:52] VITALS: BP 116/68; PULSE 72; O2SAT 98; BMI 38.5
--- NOTE | 2023-06-26 09:52 | MHC.PC.OV ---
Vital Signs 06/26/23 09:52 Height 4 ft 9 in Weight 178 lb BMI 38.5 BP 116/68 Blood Pressure Location Lt brachial Position Sitting Pulse 72 Pulse Source Pulse Oximeter Pulse Oximetry (%) 98 Oxygen Delivery Method Room Air Intake Visit Reasons: HLD Allergies amoxicillin [Augmentin] Allergy (Unknown, Verified 06/26/23 09:52) Unknown clavulanic acid [Augmentin] Allergy (Unknown, Verified 06/26/23 09:52) Unknown Tobacco use date assessed: 09/12/22 Dental Screening Dental Screen Date: 06/26/23 Did you have a dental visit in the last 12 months?: Yes Did you have a dental problem in the last 6 months where you did not have access to dental care?: No Was dental information given to patient?: Patient has dentist HPI HLD HPI Details 38-year-old morbid obese female with developmental delay seizures, nonischemic cardiomyopathy (recovered) hypercholesterolemia impaired glucose tolerance coming in for follow-up. Patient was last seen in November 2022. Patient has followed up with Cardiology in April 2023 advised transthoracic echo. Patient did see the nurse practitioner in February for annual well visit blood work done in February noted thrombocytopenia [facility] Medical History (Updated 06/26/23 @ 10:23 by Satish Llanos MD) COVID-19 virus infection Liver mass Aortic insufficiency Abscess of right axilla Abdominal bloating Superficial bruising of abdominal wall Mixed hyperlipidemia Mental disability Vitamin D deficiency Morbid obesity with BMI of 40.0-44.9, adult Dilated cardiomyopathy Epilepsy Postprandial diarrhea UTI (urinary tract infection) Surgical History No pertinent past surgical history Family History Father No problems noted. Mother Heart problem Social History Housing: Assisted Living Facility Alcohol intake: never Patient Tobacco Use Status: Never used Tobacco e-Cigarette/Vaping Use: Never Used service: No Current occupational status: disabled Cognitive needs: Yes Hearing needs: No Vision needs: Yes Questionnaire PHQ-9 Over the last 2 weeks, how often have you been bothered by any of the following problems? 1. Little interest or pleasure in doing things: not at all 2. Feeling down, depressed, or hopeless: not at all 3. Trouble falling or staying asleep, or sleeping too much: not at all 4. Feeling tired or having little energy: not at all 5. Poor appetite or overeating: not at all 6. Feeling bad about yourself - or that you are a failure or have let yourself or your family down: not at all 7. Trouble concentrating on things, such as reading the newspaper or watching television: not at all 8. Moving or speaking so slowly that other people could have noticed. Or the opposite - being so fidgety or restless that you have been moving around a lot more than usual: not at all 9. Thoughts that you would be better off or of hurting yourself in some way: not at all Total score: 0 Depression Screening Interpretation: Negative Depression Screening Done: Yes 51905 - PHQ-9 Billing: Yes Source: Developed by Drs. Jonas Stoll, Patsy Vidal, Fabián Fernandes and colleagues, with an educational haile from [employer]. Thrive Questionnaire Date Thrive assessed: 03/14/23 AUDIT C Alcohol Use Questionnaire (AUDIT-C) 1. How often do you have a drink containing alcohol?: Never 3. How often do you have six or more drinks on one occasion?: Never Total Score: 0 Score Reviewed/Action Taken: No SAVANNAH-7 AMB Questionnaire SAVANNAH-7 Date SAVANNAH - 7 assessed: 03/14/23 Source: Developed by Drs. Jonas Stoll, Patsy Vidal, Fabián Fernandes and colleagues, with an educational haile from [employer]. Physical exam (Primary Care) Vital Signs: Last Vital Signs Pulse 72 06/26/23 09:52 BP 116/68 06/26/23 09:52 Pulse Ox 98 06/26/23 09:52 Oxygen Delivery Method Room Air 06/26/23 09:52 BMI result Body Mass Index 38.5 Tobacco/Smoking Status: Tobacco use Status Tobacco use date assessed 09/12/22 06/26/23 09:55 Patient Tobacco Use Status Never used Tobacco 06/26/23 09:55 e-Cigarette/Vaping Use Never Used 06/26/23 09:55 PHQ-9: PHQ-9 Score PHQ-9: Total score 0 06/26/23 09:55 Depression Screening Interpretation: Negative Thrive Assessment: Date of Thrive Assessment Date Thrive assessed 03/14/23 06/26/23 09:55 Const General: alert; No acute distress Eyes Conjunctivae: conjunctivae normal Resp Auscultation: clear to auscultation bilaterally Cardio Rate: regular rate Rhythm: regular rhythm GI Inspection: Yes normal to inspection Extrem General: Yes normal to inspection and No edema Office Procedures Flu Questionnaire Does the patient have a severe egg allergy?: No Does the patient have severe life threatening allergies?: No Does the patient have a fever or illness today?: No Has the patient ever had Guillain-Lutts Syndrome?: No Has the patient ever had any past reaction to a flu shot?: No Immunizations flu vacc [id number] 6mos up(PF) 60 mcg(15 mcgx4)/0.5 mL IM syringe Performing Provider: Satish Llanos MD Performing Location: [facility] Administered by: Carolina Yanez CMA on 06/26/23 10:12 Dose Route Admin Location Dispensed Lot Number Expiration Date NDC Supervisor [employer] 0.5 mL IM Left Deltoid 0.5 mL [id number] 02/23/24 85227-861-04 [employer] VIS Given Date VIS Provided VIS Publication Date 06/26/23 Single Vaccine 21 Eligibility Eligibility Date Funding Source Not [facility] Eligible 06/26/23 Private Assessment and Plan Assessment & Plan (1) Dilated cardiomyopathy: Code(s): I42.0 - Dilated cardiomyopathy Plan: PAtient follow up with cardiology and echocardiogram pending (2) Obesity: Code(s): E66.9 - Obesity, unspecified Plan: Continue with diet and exercise (3) Impaired glucose tolerance: Comment: Per staff reports: diarrhea is lessening after switching to lactose free options May recommend assessing for celiac if symptoms continue Code(s): R73.02 - Impaired glucose tolerance (oral) Plan: Decrease the amount of carbohydrate intake, pasta, bread, rice and potatoes are all sugar and that is aside from all the sweet stuff, remember that fruits are good but they are Sweet also. February 2023 blood work normal (4) Mixed hyperlipidemia: Code(s): E78.2 - Mixed hyperlipidemia Plan: Avoid fried foods, chicken skin, eggs, butter margarine, pastries and meat. Be it pork or beef they have a lot of cholesterol February 2023 blood work (5) Mental disability: Code(s): F79 - Unspecified intellectual disabilities Plan: Continue with present medication (6) Epilepsy: Comment: EEG negative February 2019 Code(s): G40.909 - Epilepsy, unspecified, not intractable, without status epilepticus Qualifiers: Epilepsy type: unspecified Intractability: not intractable Status epilepticus: without status epilepticus Qualified Code(s): G40.909 - Epilepsy, unspecified, not intractable, without status epilepticus Plan: Stable (7) Thrombocytopenia: Code(s): D69.6 - Thrombocytopenia, unspecified Plan: will repeat test Orders: Orders Complete Blood Count Auto Diff Today D69.6 - Thrombocytopenia, unspecified Influenza [id number] Immunization Today Z23 - Encounter for immunization Coding Level of Care Code Est Pt Level 4 (43740) Diagnoses Dilated cardiomyopathy I42.0 Obesity E66.9 Impaired glucose tolerance R73.02 Mixed hyperlipidemia E78.2 Mental disability F79 Nonintractable epilepsy without status epilepticus, unspecified epilepsy type G40.909 Epilepsy type: unspecified Intractability: not intractable Status epilepticus: without status epilepticus Thrombocytopenia D69.6
== END 2023-06-26 10:38 | disposition home or self-care (01) ==
PROVIDERS: PCP Internal Medicine; Visit Provider Internal Medicine
DX: Z23 Encounter for immunization (principal); E78.2 Mixed hyperlipidemia; I42.0 Dilated cardiomyopathy; G40.909 Epilepsy, unspecified, not intractable, without status epilepticus
CPT/HCPCS: 90471; 90686; 99214

== ENCOUNTER 2023-07-12 16:43 | Outpatient (REF) | payer MEDICARE, MEDICAID, SELFPAY ==
[2023-07-12 16:55] LABS: MANUAL DIFF FLAG NO
[2023-07-12 17:00] LABS: Basophils Percent Auto 0.4 % (0-2); Eosinophils Absolute Auto 0.1 X10*3/uL (0.0-0.4); Eosinophils Percent Auto 0.6 % (0-4); Hematocrit 41.5 % (37.0-47.0); Hemoglobin 13.7 g/dl (12.0-16.0); Imm Gran Abs Auto 0.02 X10*3/uL (0.00-0.03); Imm Gran Pct Auto 0.2 % (0.0-0.4); Lymphocytes Absolute Auto 3.2 X10*3/uL (1.2-4.9); Lymphocytes Percent Auto 34.3 % (20-40); Mean Corpuscular Hemoglobin 30.4 pg (27.0-33.0); Mean Corpuscular Volume 92.2 fL (80.0-98.0); Mean Platelet Volume 12.7 fL (9.4-12.3); Monocytes Absolute Auto 0.9 X10*3/uL (0.1-1.2); Monocytes Percent Auto 9.4 % (2-11); Neutrophils Absolute Auto 5.2 x10*3/uL (2.0-8.3); Neutrophils Percent Auto 55.1 % (45-73); Platelet Count 155 X10*3/uL (160-400); Red Cell Distribution Width 12.8 % (11.0-16.0); White Blood Count 9.5 X10*3/uL (4.8-10.8)
== END 2023-07-12 16:44 | disposition home or self-care (01) ==
LOC: HO.LAB 16:43
PROVIDERS: PCP Internal Medicine; Visit Provider Internal Medicine
DX: D69.6 Thrombocytopenia, unspecified (principal)
CPT/HCPCS: 36415; 85025

== ENCOUNTER 2023-08-07 10:03 | Outpatient (AMB) | payer MEDICARE, MEDICAID, SELFPAY ==
[2023-08-07 10:16] VITALS: BP 106/64; BMI 38.5
--- NOTE | 2023-08-07 10:16 | MHC.OFFVIS ---
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 She is mildly and makes verbal sounds and giggles. Family reports no concerns with her including her menstrual cycles which appeared to be regular. She is in a all female facility with female care providers no wrist pregnancies per staff members. She visits her mom and sister at their home on the weekends. Regular monthly menses. Last pap smear 2021, negative. COUNT INCLUDES THE [facility] Medical History COVID-19 virus infection Liver mass Aortic insufficiency Abscess of right axilla Abdominal bloating Superficial bruising of abdominal wall Mixed hyperlipidemia Mental disability Vitamin D deficiency Morbid obesity with BMI of 40.0-44.9, adult Dilated cardiomyopathy Epilepsy Postprandial diarrhea UTI (urinary tract infection) Surgical History No pertinent past surgical history Family History Father No problems noted. Mother Heart problem Social History Housing: Assisted Living Facility Alcohol intake: never Patient Tobacco Use Status: Never used Tobacco e-Cigarette/Vaping Use: Never Used service: No Current occupational status: disabled Cognitive needs: Yes Hearing needs: No Vision needs: Yes Female Reproductive History Menstrual control method: none Total pregnancies: 0 Date of last pap smear: 06/19/22 (negative) Review of Systems Const All systems reviewed & are unremarkable except as noted in HPI and below Reports as per HPI Eyes Reports no additional complaints ENT Reports no additional complaints Card Reports no additional complaints Resp Reports no additional complaints GI Reports as per HPI and Reports no additional complaints Reports as per HPI Musc Reports no additional complaints Skin/Breast Reports as per HPI Neuro Reports no additional complaints Psych Reports no additional complaints Endo Reports no additional complaints Mohamud/Lymph Reports no additional complaints Aller/Immun Reports no additional complaints Physical Exam Vital Signs: Last Vital Signs BP 106/64 08/07/23 10:16 BMI result Body Mass Index 38.5 Const General: cooperative, healthy appearing, no acute distress, well developed and alert HEENT Head: Yes normal to inspection Eyes General: appearance normal, both eyes and all related structures Neck Neck: Yes normal visual inspection Thyroid: Thyroid normal Chest Chest palpation & inspection: normal inspection of the chest and other (no puckering, dimpling, peau de orange, retraction, discharge, masses) Breast/axilla inspection: normal inspection of the breasts Breast/axilla palpation: normal palpation of the breasts Resp Effort & Inspection: normal respiratory effort GI Inspection: Yes normal to inspection Palpation (GI): Soft to palpation Rectal Exam - Female: deferred Other: Very tense with exam. Stool noted at the anal region on her skin. General: Yes bladder normal to palpation External Female Exam: normal external appearance and normal appearance of the urethra Speculum Exam - Vagina: normal appearance of the vagina, normal palpation and normal vaginal discharge Speculum Exam - Cervix: normal appearance of the cervix and normal palpation Bimanual exam- vagina & uterus: normal bimanual exam, normal palpation, uterine size normal, bladder normal to palpation, normal palpation and non-tender Bimanual Exam- Adnexa, other: no masses Skin General skin exam: no rashes or lesions noted Rashes: no rashes Neuro Speech: Other speech findings present (Neuro) (limited verbally) Extrem General: Yes normal to inspection Psych Appearance: grossly normal Attitude: cooperative Assessment & Plan Assessment & Plan (1) Encounter for well woman exam with routine gynecological exam: Code(s): Z01.419 - Encounter for gynecological examination (general) (routine) without abnormal findings Plan Discussed: Current recommendations for pap smears per ASCCP guidelines. Maintain a healthy lifestyle including a well balanced diet and routine exercise. Discussed skin care and importance of cleaning off the stools so to prevent any irritation or burning. Recommended to allow her to clean herself and assist is needed as she can be challenging for hygiene support per Radha today. Monitor menses if there is any abnormalities please return to the office for sooner evaluation p.r.n.. RTO in one year for annual heel builder examination. Coding Level of Care Code Est Pt Prev Care 18-39y(05469) Diagnoses Encounter for well woman exam with routine gynecological exam Z01.419
== END 2023-08-07 11:01 | disposition home or self-care (01) ==
PROVIDERS: PCP Internal Medicine; Visit Provider Advanced Practice Midwife
DX: Z01.419 Encounter for gynecological examination (general) (routine) without abnormal findings (principal)
CPT/HCPCS: G0101

== ENCOUNTER → 2023-08-07 10:03 | Outpatient (BNVA) | payer MEDICARE, MEDICAID, SELFPAY | PROVIDERS: PCP Internal Medicine; Visit Provider Advanced Practice Midwife | DX: Z01.419 Encounter for gynecological examination (general) (routine) without abnormal findings (principal) | CPT/HCPCS: G0101 ==

== ENCOUNTER 2023-09-06 15:15 | Outpatient (AMB) | payer MEDICARE, MEDICAID, SELFPAY ==
[2023-09-06 15:16] VITALS: BP 116/60; PULSE 90; O2SAT 95; BMI 26.4
--- NOTE | 2023-09-06 15:16 | MHC.PC.OV ---
Vital Signs 09/06/23 15:16 Height 5 ft 9 in Weight 179 lb BMI 26.4 BP 116/60 Blood Pressure Location Lt brachial Position Sitting Pulse 90 Pulse Source Pulse Oximeter Pulse Oximetry (%) 95 Oxygen Delivery Method Room Air Intake Visit Reasons: stomach pain, frequent bowel movements Fbi Investigator Required: No Adjunct Sociology Professor: Not Required per policy Accompanied by: Self / Same As Patient Allergies amoxicillin [Augmentin] Allergy (Unknown, Verified 09/06/23 15:17) Unknown clavulanic acid [Augmentin] Allergy (Unknown, Verified 09/06/23 15:17) Unknown Tobacco use date assessed: 09/06/23 Dental Screening Dental Screen Date: 09/06/23 Did you have a dental visit in the last 12 months?: Yes Did you have a dental problem in the last 6 months where you did not have access to dental care?: No Was dental information given to patient?: Patient has dentist HPI stomach pain, frequent bowel movements HPI Details 38-year-old female with mental and behavioral problem obese with dilated cardiomyopathy impaired glucose tolerance hypercholesterolemia seizure disorder and thrombocytopenia last seen in June 2023. Patient is here for an acute problem.. Review of the notes cardiology seen April 2023 history of nonischemic cardiomyopathy recovered left ventricular ejection fraction advised to have echocardiog. christian presently on bisoprolol spironolactone and lisinopril. echocardiogram - still has cardiomyopathy. - stomach pain and diarrhea, - [address] Stewart - diarrhea at that time. discussed about IGT- limit carbohydrate. had an episode of unconssiouness eyes rolled back 15 sec then went back to normal. speaking with milagros sister over the phone also. [facility] Medical History COVID-19 virus infection Liver mass Aortic insufficiency Abscess of right axilla Abdominal bloating Superficial bruising of abdominal wall Mixed hyperlipidemia Mental disability Vitamin D deficiency Morbid obesity with BMI of 40.0-44.9, adult Dilated cardiomyopathy Epilepsy Postprandial diarrhea UTI (urinary tract infection) Surgical History No pertinent past surgical history Family History Father No problems noted. Mother Heart problem Social History (Reviewed 09/06/23 @ 15:17 by TREVOR Perry Housing: Assisted Living Facility Alcohol intake: never Patient Tobacco Use Status: Never used Tobacco e-Cigarette/Vaping Use: Never Used service: No Current occupational status: disabled Cognitive needs: Yes Hearing needs: No Vision needs: Yes Questionnaire PHQ-9 Over the last 2 weeks, how often have you been bothered by any of the following problems? 1. Little interest or pleasure in doing things: not at all 2. Feeling down, depressed, or hopeless: not at all 3. Trouble falling or staying asleep, or sleeping too much: not at all 4. Feeling tired or having little energy: not at all 5. Poor appetite or overeating: not at all 6. Feeling bad about yourself - or that you are a failure or have let yourself or your family down: not at all 7. Trouble concentrating on things, such as reading the newspaper or watching television: not at all 8. Moving or speaking so slowly that other people could have noticed. Or the opposite - being so fidgety or restless that you have been moving around a lot more than usual: not at all 9. Thoughts that you would be better off or of hurting yourself in some way: not at all Total score: 0 Depression Screening Interpretation: Negative Depression Screening Done: Yes 55402 - PHQ-9 Billing: Yes Source: Developed by Drs. Jonas Stoll, Patsy Vidal, Fabián Fernandes and colleagues, with an educational haile from [employer]. Thrive Questionnaire Date Thrive assessed: 09/06/23 I am a: Patient What is your living situation today?: I have a steady place to live Within the past 12 months, did the food you bought not last and you didn't have the money to get more?: Never true Within the past 12 months, did you worry whether your food would run out before you got money to buy more?: Never true Do you have trouble paying for medicines?: No Do you have trouble getting transportation to medical appointments?: No Do you have trouble paying your heating and electricity bill?: No Do you have trouble taking care of your child, family member or friend?: No Do you have trouble with day-to-day activities such as bathing, preparing meals, shopping, managing finances, etc.?: No Are you currently unemployed and looking for a job?: No Are you interested in more education?: No Please select the resources that you would like help with: None AUDIT C Alcohol Use Questionnaire (AUDIT-C) 1. How often do you have a drink containing alcohol?: Never 3. How often do you have six or more drinks on one occasion?: Never Total Score: 0 Score Reviewed/Action Taken: No SAVANNAH-7 AMB Questionnaire SAVANNAH-7 Date SAVANNAH - 7 assessed: 09/06/23 Feeling nervous, anxious, or on edge: 0 = Not at all Not being able to stop or control worryin = Not at all Worrying too much about different things: 0 = Not at all Trouble relaxin = Not at all Being so restless that it is hard to sit still: 0 = Not at all Becoming easily annoyed or irritable: 0 = Not at all Feeling afraid as if something awful might happen: 0 = Not at all Total SAVANNAH-7 score (0-4 normal; 5-9 mild; 10-14 moderate; 15-21 severe): 0 Source: Developed by Drs. Jonas Stoll, Patsy Vidal, Fabián Fernandes and colleagues, with an educational haile from [employer]. Physical exam (Primary Care) Vital Signs: Last Vital Signs Pulse 90 09/06/23 15:16 BP 116/60 09/06/23 15:16 Pulse Ox 95 09/06/23 15:16 Oxygen Delivery Method Room Air 09/06/23 15:16 BMI result Body Mass Index 26.4 Tobacco/Smoking Status: Tobacco use Status Tobacco use date assessed 09/06/23 09/06/23 15:18 Patient Tobacco Use Status Never used Tobacco 09/06/23 15:18 e-Cigarette/Vaping Use Never Used 09/06/23 15:18 PHQ-9: PHQ-9 Score PHQ-9: Total score 0 09/06/23 15:18 Depression Screening Interpretation: Negative Thrive Assessment: Date of Thrive Assessment Date Thrive assessed 09/06/23 09/06/23 15:18 Const General: alert; No acute distress Eyes Conjunctivae: conjunctivae normal Resp Auscultation: clear to auscultation bilaterally Cardio Rate: regular rate Rhythm: regular rhythm GI Other: bloated and abdominal enlargement on the epigastric are Extrem General: Yes normal to inspection and No edema Assessment and Plan Assessment & Plan (1) Dilated cardiomyopathy: Code(s): I42.0 - Dilated cardiomyopathy Plan: Review of the notes patient was seen by Cardiology last year and has requested for echocardiogram. (2) Mixed hyperlipidemia: Code(s): E78.2 - Mixed hyperlipidemia Plan: Avoid fried foods, chicken skin, eggs, butter margarine, pastries and meat. Be it pork or beef they have a lot of cholesterol continue to monitor LDL goal of less than 130 and triglyceride of less than 150 (3) Impaired glucose tolerance: Comment: Per staff reports: diarrhea is lessening after switching to lactose free options May recommend assessing for celiac if symptoms continue Code(s): R73.02 - Impaired glucose tolerance (oral) Plan: Decrease the amount of carbohydrate intake, pasta, bread, rice and potatoes are all sugar and that is aside from all the sweet stuff, remember that fruits are good but they are Sweet also. Had a long discussion with the family member and certified social workers in health care that as for the IGT limitation of carbohydrates was the recommendation not eliminate (4) Obesity: Code(s): E66.9 - Obesity, unspecified Plan: Diet and exercise (5) Chronic diarrhea: Code(s): K52.9 - Noninfective gastroenteritis and colitis, unspecified Plan: she just saw Gastro and stool testing advised. Discussed about follow-up with Gastroenterology discussed about lactose intolerance but limitation of dairy did not effect. (6) Liver mass: Comment: November 2021 no change Code(s): R16.0 - Hepatomegaly, not elsewhere classified Plan: Ultrasound requested of the abdomen to follow-up Orders: Orders Complete Blood Count Auto Diff Today R16.0 - Hepatomegaly, not elsewhere classified Free T4 (Free Thyroxine) Today R16.0 - Hepatomegaly, not elsewhere classified Lipid Panel Today E78.00 - Pure hypercholesterolemia, unspecified, R16.0 - Hepatomegaly, not elsewhere classified Magnesium Today R16.0 - Hepatomegaly, not elsewhere classified EEG electroencephalogram Today G40.909 - Epilepsy, unspecified, not intractable, without status epilepticus Valproate Today G40.909 - Epilepsy, unspecified, not intractable, without status epilepticus US abdomen complete Today R16.0 - Hepatomegaly, not elsewhere classified, R79.89 - Other specified abnormal findings of blood chemistry Comprehensive Met. Panel Today R16.0 - Hepatomegaly, not elsewhere classified Thyroid Stimulating Hormone Today R16.0 - Hepatomegaly, not elsewhere classified Vitamin B12 and Folate Today R16.0 - Hepatomegaly, not elsewhere classified Vitamin D 25-OH Total Today R16.0 - Hepatomegaly, not elsewhere classified Coding Level of Care Code Est Pt Level 4 (08451) Diagnoses Dilated cardiomyopathy I42.0 Mixed hyperlipidemia E78.2 Impaired glucose tolerance R73.02 Obesity E66.9 Chronic diarrhea K52.9 Liver mass R16.0
== END 2023-09-06 17:07 | disposition home or self-care (01) ==
PROVIDERS: PCP Internal Medicine; Visit Provider Internal Medicine
DX: I42.0 Dilated cardiomyopathy (principal); Z68.24 Body mass index [BMI] 24.0-24.9, adult; E66.9 Obesity, unspecified; E78.2 Mixed hyperlipidemia; R73.02 Impaired glucose tolerance (oral); K52.9 Noninfective gastroenteritis and colitis, unspecified; R16.0 Hepatomegaly, not elsewhere classified
CPT/HCPCS: 99214

== ENCOUNTER 2023-09-06 17:12 | Outpatient (REF) | payer MEDICARE, MEDICAID, SELFPAY ==
[2023-09-06 18:20] LABS: Leukocytes Stool Qualitative NEGATIVE (NEGATIVE)
== END 2023-09-06 17:13 | disposition home or self-care (01) ==
LOC: HO.LNP 17:12
PROVIDERS: Visit Provider Internal Medicine Gastroenterology
DX: R19.7 Diarrhea, unspecified (principal)
CPT/HCPCS: 87177; 87209; 87329; 87507; 89055

== ENCOUNTER 2023-09-14 10:10 | Outpatient (REF) | payer MEDICARE, MEDICAID, SELFPAY ==
[2023-09-14 11:42] LABS: Adenovirus F 40/41 Not Detected (Not Detect.); Astrovirus Not Detected (Not Detect.); Campylobacter Not Detected (Not Detect.); Cryptosporidium Not Detected (Not Detect.); Cyclospora cayetanensis Not Detected (Not Detect.); E. coli EAEC Not Detected (Not Detect.); E. coli EPEC Not Detected (Not Detect.); E. coli ETEC Not Detected (Not Detect.); E. coli STEC Not Detected (Not Detect.); Entamoeba histolytica Not Detected (Not Detect.); Giardia lamblia Not Detected (Not Detect.); Norovirus GI/GII Not Detected (Not Detect.); Plesiomonas shigelloides Not Detected (Not Detect.); Rotavirus A Not Detected (Not Detect.); Salmonella Not Detected (Not Detect.); Sapovirus Not Detected (Not Detect.); Shigella sp./EIEC Not Detected (Not Detect.); Vibrio Not Detected (Not Detect.); Vibrio Cholerae Not Detected (Not Detect.); Yersinia enterocolitica Not Detected (Not Detect.)
== END 2023-09-14 10:11 | disposition home or self-care (01) ==
LOC: HO.LNP 10:10
PROVIDERS: Visit Provider Internal Medicine Gastroenterology
DX: R19.7 Diarrhea, unspecified (principal)
CPT/HCPCS: 87507

== ENCOUNTER 2023-09-19 13:30 | Outpatient (REF) | payer MEDICARE, MEDICAID, SELFPAY ==
--- NOTE | 2023-09-19 13:33 | EEG_ITS ---
This is a 16 channel EEG with an EKG lead. The patient is reported nonverbal during the tracing. Background EEG rhythm is 14-16 hertz, 5-70 microvolt posteriorly and lower amplitude fast anteriorly. Frequently generalized sharp waves and sometime sharp and slow waves were noted that at times were right hemispheric predominant and sometime left with suggestion of bi temporal irritability. Cardiac lead did not reveal any significant abnormality. Photic stimulation did not produce any significant abnormality. Hypoventilation for a minute was performed. IMPRESSION: Abnormal EEG suggestive of underlying tendency for seizure disorder with bitemporal focus. MD CHANTEL Pederson/SALMA / [phone]
== END 2023-09-19 13:31 | disposition home or self-care (01) ==
LOC: HO.NEURO 13:30
PROVIDERS: PCP Internal Medicine; Visit Provider Internal Medicine
DX: G40.909 Epilepsy, unspecified, not intractable, without status epilepticus (principal)
CPT/HCPCS: 95816

== ENCOUNTER 2023-09-20 12:37 | Outpatient (REF) | payer MEDICARE, MEDICAID, SELFPAY ==
[2023-09-20 13:05] LABS: MANUAL DIFF FLAG NO
[2023-09-20 13:46] LABS: Basophils Percent Auto 0.3 % (0-2); Eosinophils Absolute Auto 0.1 X10*3/uL (0.0-0.4); Eosinophils Percent Auto 0.8 % (0-4); Hematocrit 42.9 % (37.0-47.0); Imm Gran Abs Auto 0.03 X10*3/uL (0.00-0.03); Imm Gran Pct Auto 0.4 % (0.0-0.4); Lymphocytes Percent Auto 27.2 % (20-40); Mean Corpuscular HGB Conc 32.6 g/dl (31.0-35.0); Mean Corpuscular Hemoglobin 30.3 pg (27.0-33.0); Mean Corpuscular Volume 92.9 fL (80.0-98.0); Monocytes Absolute Auto 0.7 X10*3/uL (0.1-1.2); Monocytes Percent Auto 9.8 % (2-11); Neutrophils Absolute Auto 4.5 x10*3/uL (2.0-8.3); Neutrophils Percent Auto 61.5 % (45-73); Platelet Count 156 X10*3/uL (160-400); Red Blood Count 4.62 X10*6/uL (4.20-5.50); Red Cell Distribution Width 12.4 % (11.0-16.0); White Blood Count 7.3 X10*3/uL (4.8-10.8)
[2023-09-20 14:13] LABS: Valproate 92.4 mcg/mL (50.0-100.0)
[2023-09-20 14:29] LABS: Alanine Aminotransferase 14 U/L (0-31); Albumin Level 4.3 g/dL (3.5-5.0); Alkaline Phosphatase 96 U/L (39-117); Anion Gap 15 (12-20); Aspartate Amino Transferase 15 U/L (5-31); Bilirubin Total 0.3 mg/dL (0.0-1.0); Blood Urea Nitrogen 17 mg/dL (9-16); Carbon Dioxide 28 mmol/L (22-29); Chloride 99 mmol/L (96-108); Cholesterol 200 mg/dL (<200); Estimated Glomerular Filt Rate > 60; Glucose Random 117 mg/dL (60-115); HDL Cholesterol 41 mg/dL (>40); LDL Cholesterol Calculated 117 mg/dL (<100); Magnesium 1.7 mg/dL (1.6-2.6); Potassium 4.4 mmol/L (3.3-5.1); Sodium 138 mmol/L (135-145); Total Protein 8.1 g/dL (6.5-8.0); Triglycerides 212 mg/dL (<150)
[2023-09-20 14:46] LABS: Free T4 (Free Thyroxine) 0.79 ng/dL (0.71-1.85); Thyroid Stimulating Hormone 2.11 uIU/mL (0.32-4.0); Vitamin D 25-OH Total 33.3 ng/mL (>30)
[2023-09-20 14:49] LABS: Folate 6.9 ng/mL (> or = 4.0); Vitamin B12 552 pg/mL (200-900)
== END 2023-09-20 12:38 | disposition home or self-care (01) ==
LOC: HO.LAB 12:37
PROVIDERS: PCP Internal Medicine; Visit Provider Internal Medicine
DX: R16.0 Hepatomegaly, not elsewhere classified (principal); E78.00 Pure hypercholesterolemia, unspecified; G40.909 Epilepsy, unspecified, not intractable, without status epilepticus
CPT/HCPCS: 36415; 80053; 80061; 80164; 82306; 82607; 82746; 83735; 84439; 84443; 85025

== ENCOUNTER 2023-10-01 08:26 | Outpatient (REF) | payer MEDICARE, MEDICAID, SELFPAY ==
--- NOTE | ~2023-10-01 | US_ITS ---
EXAMINATION: US ABDOMEN COMPLETE CLINICAL INFORMATION: Hepatomegaly. Elevated LFTs. Liver mass. COMPARISON: Ultrasound abdomen complete 11/24/2021. X-ray abdomen 12/05/2020. MRI abdomen 05/07/2018. CT abdomen 08/13/2016. Ultrasound abdomen limited 08/13/2016. TECHNIQUE: Real-time imaging of the abdominal viscera. FINDINGS: PANCREAS: Normal. The visualized pancreatic head and body are normal in appearance. The remainder of the pancreas is obscured from visualization by the overlying bowel gas. ABDOMINAL AORTA: The proximal and mid segments are normal in caliber. The distal segment is obscured by overlapping bowel gas. INFERIOR VENA CAVA: Visualized portions are normal. LIVER: The liver is normal in size. The liver contour is normal. There is diffuse increased liver parenchymal echogenicity. Within the left hepatic lobe, an 8.0 x 3.4 x 7.2 cm hypoechoic mass is seen, with associated mild color Doppler flow. This is stable from 11/27/2021, at which time measurements were 7.8 x 3.9 x 5.9 cm. There is no intrahepatic biliary duct dilatation seen. GALLBLADDER: The gallbladder is slightly contracted, without evidence of stones, sludge, polyps, wall thickening or pericholecystic fluid. COMMON BILE DUCT: Normal in caliber measuring 0.6 cm in diameter. RIGHT KIDNEY: Normal. No hydronephrosis. No renal calculi or focal parenchymal lesions. The kidney measures 10.7 cm in maximum dimension. LEFT KIDNEY: Normal. No hydronephrosis. No renal calculi or focal parenchymal lesions. The kidney measures 10.4 cm in maximum dimension. SPLEEN: Normal. The spleen measures 11.0 cm in maximum dimension. FREE FLUID: None. US/US abdomen complete IMPRESSION: 1. This is a continued relatively stable left hepatic lobe hypoechoic mass. No new lesion is seen. 2. A 2 mm nonmobile gallbladder polyp is incidentally noted. 3. Technically limited ultrasound examination of the pancreatic tail and the abdominal great vessels.
== END 2023-10-01 08:27 | disposition home or self-care (01) ==
LOC: HO.HMGCX 08:26
PROVIDERS: PCP Internal Medicine; Visit Provider Internal Medicine
DX: R79.89 Other specified abnormal findings of blood chemistry (principal); R16.0 Hepatomegaly, not elsewhere classified
CPT/HCPCS: 76700

== ENCOUNTER 2023-10-07 10:21 | Outpatient (AMB) | payer MEDICARE, MEDICAID, SELFPAY ==
[2023-10-07 10:30] VITALS: BP 100/68; PULSE 70; O2SAT 98; BMI 38.5
--- NOTE | 2023-10-07 10:30 | MHC.PC.OV ---
Vital Signs 10/07/23 10:30 Height 4 ft 9 in Weight 178 lb 0.2 oz BMI 38.5 BP 100/68 Blood Pressure Location Lt brachial Position Sitting Pulse 70 Pulse Source Pulse Oximeter Pulse Oximetry (%) 98 Oxygen Delivery Method Room Air Intake Visit Reasons: 3mth f/u Intake Note: Patient is here to follow up on 3 months Olericulturist Required: No Allergies amoxicillin [Augmentin] Allergy (Unknown, Verified 10/07/23 10:41) Unknown clavulanic acid [Augmentin] Allergy (Unknown, Verified 10/07/23 10:41) Unknown Tobacco use date assessed: 10/07/23 Dental Screening Dental Screen Date: 10/07/23 Did you have a dental visit in the last 12 months?: Yes Did you have a dental problem in the last 6 months where you did not have access to dental care?: No Was dental information given to patient?: Patient has dentist HPI 3mth f/u HPI Details 38-year-old obese female with mental disability dilated cardiomyopathy hypercholesterolemia coming in for follow-up. Last seen in 09/06/2023. Concern about liver mass and ultrasound was requested. This was done in October 02 results: This is a continued relatively stable left hepatic lobe hypoechoic mass. No new lesion is seen. 2. A 2 mm nonmobile gallbladder polyp is incidentally noted. 3. Technically limited ultrasound examination of the pancreatic tail and the abdominal great vessels. Patient has also been referred to Neurology for seizure disorder diagnosis of son's and grand mal presently on Depakote EEG done August 2023 similar to 2002 showing frequent interictal activity similar to before. spoke to Denise sister [facility] Medical History (Updated 10/07/23 @ 10:58 by Satish Llanos MD) COVID-19 virus infection Liver mass Aortic insufficiency Abscess of right axilla Abdominal bloating Superficial bruising of abdominal wall Mixed hyperlipidemia Mental disability Vitamin D deficiency Morbid obesity with BMI of 40.0-44.9, adult Dilated cardiomyopathy Epilepsy Postprandial diarrhea UTI (urinary tract infection) Surgical History No pertinent past surgical history Family History Father No problems noted. Mother Heart problem Social History (Reviewed 09/06/23 @ 15:17 by TREVOR Perry Housing: Assisted Living Facility Alcohol intake: never Patient Tobacco Use Status: Never used Tobacco e-Cigarette/Vaping Use: Never Used service: No Current occupational status: disabled Cognitive needs: Yes Hearing needs: No Vision needs: Yes Questionnaire Thrive Questionnaire Date Thrive assessed: 09/06/23 AUDIT C Alcohol Use Questionnaire (AUDIT-C) 1. How often do you have a drink containing alcohol?: Never 3. How often do you have six or more drinks on one occasion?: Never Total Score: 0 Score Reviewed/Action Taken: No SAVANNAH-7 AMB Questionnaire SAVANNAH-7 Date SAVANNAH - 7 assessed: 09/06/23 Source: Developed by Drs. Jonas Stoll, Patsy Vidal, Fabián Fernandes and colleagues, with an educational haile from [employer]. Physical exam (Primary Care) Vital Signs: Last Vital Signs Pulse 70 10/07/23 10:30 BP 100/68 10/07/23 10:30 Pulse Ox 98 10/07/23 10:30 Oxygen Delivery Method Room Air 10/07/23 10:30 BMI result Body Mass Index 38.5 Tobacco/Smoking Status: Tobacco use Status Tobacco use date assessed 10/07/23 10/07/23 10:32 Patient Tobacco Use Status Never used Tobacco 10/07/23 10:32 e-Cigarette/Vaping Use Never Used 10/07/23 10:32 Thrive Assessment: Date of Thrive Assessment Date Thrive assessed 09/06/23 10/07/23 10:32 Const General: alert; No acute distress Eyes Conjunctivae: conjunctivae normal Resp Auscultation: clear to auscultation bilaterally Cardio Rate: regular rate Rhythm: regular rhythm GI Inspection: Yes normal to inspection Extrem General: Yes normal to inspection and No edema Assessment and Plan Assessment & Plan (1) Epilepsy: Comment: EEG negative February 2019, August 2023 Code(s): G40.909 - Epilepsy, unspecified, not intractable, without status epilepticus Qualifiers: Epilepsy type: unspecified Intractability: not intractable Status epilepticus: without status epilepticus Qualified Code(s): G40.909 - Epilepsy, unspecified, not intractable, without status epilepticus Plan: EEG workup August 2023 was called for continue seizure an urgent referral to Neurology. Received notes from Neurology no changes in EEG from earlier. Controlled continuing with Depakote level (2) Mental disability: Code(s): F79 - Unspecified intellectual disabilities Plan: Continue to follow-up with psychiatry (3) Mixed hyperlipidemia: Code(s): E78.2 - Mixed hyperlipidemia Plan: Avoid fried foods, chicken skin, eggs, butter margarine, pastries and meat. Be it pork or beef they have a lot of cholesterol LDL goal of less than 130 and triglyceride of less than 150. (4) Liver mass: Comment: November 2021 no change September 2023 stable Code(s): R16.0 - Hepatomegaly, not elsewhere classified Plan: September ultrasound stable (5) Obesity: Code(s): E66.9 - Obesity, unspecified Plan: Continue with diet and exercise (6) Gallbladder polyp: Comment: September 2023 Code(s): K82.4 - Cholesterolosis of gallbladder Plan: Will continue to follow-up with ultrasound of the liver. Coding Level of Care Code Est Pt Level 4 (40012) Diagnoses Nonintractable epilepsy without status epilepticus, unspecified epilepsy type G40.909 Epilepsy type: unspecified Intractability: not intractable Status epilepticus: without status epilepticus Mental disability F79 Mixed hyperlipidemia E78.2 Liver mass R16.0 Obesity E66.9 Gallbladder polyp K82.4
== END 2023-10-07 11:14 | disposition home or self-care (01) ==
PROVIDERS: PCP Internal Medicine; Visit Provider Internal Medicine
DX: E78.2 Mixed hyperlipidemia (principal); G40.909 Epilepsy, unspecified, not intractable, without status epilepticus; E66.9 Obesity, unspecified; Z68.38 Body mass index [BMI] 38.0-38.9, adult; F79 Unspecified intellectual disabilities; R16.0 Hepatomegaly, not elsewhere classified; K82.4 Cholesterolosis of gallbladder
CPT/HCPCS: 99214

== ENCOUNTER 2024-06-16 11:14 | Outpatient (AMB) | payer MEDICARE, MEDICAID, SELFPAY ==
--- NOTE | 2024-06-16 11:20 | A.OFFVIS_ITS ---
Intake Vital Signs 06/16/24 11:26 Height 4 ft 9 in Weight 179 lb 6 oz BMI 38.8 BP 130/70 Blood Pressure Location Lt brachial Position Sitting Pulse 78 Pulse Source Pulse Oximeter Pulse Oximetry (%) 97 Oxygen Delivery Method Room Air Intake Visit Reasons: AWV Intake Note: Patient is here for an Annual Wellness Visit. Nuclear Scientist Required: No Score Caller: Score Caller Present Accompanied by: Staff Allergies amoxicillin [Augmentin] Allergy (Unknown, Verified 06/16/24 11:26) Unknown clavulanic acid [Augmentin] Allergy (Unknown, Verified 06/16/24 11:26) Unknown Medication List - Last Reconciled 06/16/24 by Satish Haq Po, acetaminophen ER 650 mg PO Q4H PRN ammonium lactate 12% appl topical bacitracin apply a dab topical TO AFFECTED AREA TWICE WEEKLY PRN; bisoprolol fumarate 5 mg (1/2 x 10 mg) PO QAM 90 days blood pressure monitor (Blood Pressure Kit) As directed TWICE PER DAY cetirizine (Zyrtec) 10 mg PO DAILY 30 days cholecalciferol (vitamin D3) 25 mcg PO DAILY 90 days citalopram 10 mg PO DAILY clindamycin phosphate 1% 1 appl topical BID cromolyn 4% 1 drp ophthalmic (eye) QID PRN 7 days disposable gloves (Nitrile Exam Gloves) MEDIUM SIZE DX: F79, R32 EXTERNAL EIGHT TIMES A DAY divalproex ER 500 mg PO BID 90 days guaifenesin (Siltussin SA) 200 mg (10 mL) PO Q4H PRN lisinopril 10 mg PO DAILY methenamine hippurate (Hiprex) 1 g PO BID 90 days olanzapine 7.5 mg PO BEDTIME spironolactone 12.5 mg PO .QD HPI AWV HPI Details 39-year-old obese female with a history of seizures mental disability dilated cardiomyopathy hypercholesterolemia impaired glucose tolerance coming in for annual well visit last seen in September. Patient has been found to have a liver mass that has been followed up by ultrasound in September and that was normal. Review of the notes has seen Cardiology April 2024 diagnosis of nonischemic cardiomyopathy with recovered left ventricular ejection fraction on bisoprolol lisinopril spironolactone. Patient has also seen Neurology received note 06/14/2023 with the sons and grand mal stable continuing with Depakote. [facility] Medical History (Updated 06/16/24 @ 12:06 by Satish Llanos MD) COVID-19 virus infection Liver mass Aortic insufficiency Abscess of right axilla Abdominal bloating Superficial bruising of abdominal wall Mixed hyperlipidemia Mental disability Vitamin D deficiency Morbid obesity with BMI of 40.0-44.9, adult Dilated cardiomyopathy Epilepsy Postprandial diarrhea UTI (urinary tract infection) Surgical History No pertinent past surgical history Family History Father No problems noted. Mother Heart problem Social History Housing: Assisted Living Facility Alcohol intake: never Patient Tobacco Use Status: Never used Tobacco e-Cigarette/Vaping Use: Never Used service: No Current occupational status: disabled Cognitive needs: Yes Hearing needs: No Vision needs: Yes Questionnaire Medicare Wellness Checkup What [age] 65-69 (39) What gender do you identify with?: female During the past 4 weeks, how much have you been bothered by emotional problems such as feeling anxious, depressed, irritable, sad or downhearted, and blue?: not at all During the past 4 weeks, has your physical & emotional health limited your social activities with family, friends, neighbors, or groups?: not at all During the past 4 weeks, how much bodily pain have you generally had?: no pain During the past 4 weeks, was someone available to help you if you needed & wanted help?: yes, as much as I wanted During the past 4 weeks, what was the hardest physical activity you could do for at least 2 minutes?: light Can you get to places out of walking distance without help? (For eg., can you travel alone on buses, taxis or drive your car?): No Can you go shopping for groceries or clothes without someone's help?: No Can you prepare your own meals?: No Can you do your housework without help?: No Because of any health problems, do you need the help of another person with your personal care needs such as eating, bathing, dressing or getting around the house?: Yes Can you handle your own money without help?: No During the past 4 weeks, how would you rate your health in general?: good During the past 4 weeks how have things been going for you?: pretty well Are you having difficulties driving your car?: not applicable, I don't use a car Do you always fasten your seat belt when you are in a car?: yes, usually During past 4 weeks, have you been bothered by the following: never: Falling or dizzy when standing up, Sexual problems?, Trouble eating well?, Teeth or denture problems?, Problems using the telephone? and Tiredness or fatigue? Have you fallen 2 or more times in the past year?: No Are you afraid of falling?: Yes Are you a smoker?: no During the past 4 weeks, how many drinks of wine, beer, or other alcoholic beverages did you have?: no alcohol at all Do you exercise for about 20 minutes 3 or more times a week?: yes, all the time Have you been given information to help with the following?: yes: Hazards in your house that might hurt you? and yes: Keeping track of your medications? How often do you have trouble taking medicines the way you have been told to take them?: I always take medicine as prescribed How confident are you that you can control & manage most of your health problems?: not very confident What is your race?: White PHQ-9 Over the last 2 weeks, how often have you been bothered by any of the following problems? 1. Little interest or pleasure in doing things: not at all 2. Feeling down, depressed, or hopeless: not at all 3. Trouble falling or staying asleep, or sleeping too much: not at all 4. Feeling tired or having little energy: not at all 5. Poor appetite or overeating: more than half the days 6. Feeling bad about yourself - or that you are a failure or have let yourself or your family down: not at all 7. Trouble concentrating on things, such as reading the newspaper or watching television: several days 8. Moving or speaking so slowly that other people could have noticed. Or the opposite - being so fidgety or restless that you have been moving around a lot more than usual: not at all 9. Thoughts that you would be better off or of hurting yourself in some way: not at all Total score: 3 Depression Screening Interpretation: Positive Depression Screening Done: Yes Source: Developed by Drs. Jonas Stoll, Patsy Vidal, Fabián Fernandes and colleagues, with an educational haile from [employer]. Thrive Questionnaire Date Thrive assessed: 09/06/23 SAVANNAH-7 AMB Questionnaire SAVANNAH-7 Date SAVANNAH - 7 assessed: 09/06/23 Source: Developed by Drs. Jonas Stoll, Patsy Vidal, Fabián Fernandes and colleagues, with an educational haile from [employer]. Review of Systems Const Denies poor appetite and Denies weakness Eyes Denies no additional complaints ENT Reports Normal hearing present, Denies dizziness, Denies nasal congestion, Denies tinnitus and Denies sore throat Card Denies chest pain, Denies syncope, Denies rapid heart rate and Denies dyspnea Resp Denies cough and Denies dyspnea GI Denies change in stool character, Reports constipation, Denies diarrhea, Denies nausea and Denies vomiting Denies urinary frequency, Denies difficulty voiding and Denies dysuria Neuro Reports Normal hearing present, Denies confusion, Denies dizziness, Denies syncope and Denies weakness Psych Denies confusion Physical Exam Vital Signs: Last Vital Signs Pulse 78 06/16/24 11:26 BP 130/70 06/16/24 11:26 Pulse Ox 97 06/16/24 11:26 Oxygen Delivery Method Room Air 06/16/24 11:26 BMI result Body Mass Index 38.8 Const General: No confusion Orientation/consciousness: No confusion HEENT Head: Yes normocephalic Ears: external ears normal and TM's normal bilaterally Face and sinus: Yes normal facial exam Mouth: moist mucous membranes Throat: Yes tonsils normal Eyes Conjunctivae: conjunctivae normal Pupils: Equal, round and reactive pupils present and Pupil accommodation reflex normal Direct Ophthalmoscopy: normal light reflex Neck Neck: No lymphadenopathy Thyroid: Thyroid normal Chest Chest palpation & inspection: normal inspection of the chest Resp Effort & Inspection: normal respiratory effort and no audible wheezes Auscultation: clear to auscultation bilaterally, no crackles, no wheezes and lung sounds not diminished Cardio Rate: regular rate Rhythm: regular rhythm Peripheral pulses: radial pulses present and dorsalis pedis present GI Palpation (GI): no masses Auscultation: normal bowel sounds and normoactive bowel sounds Rectal Exam - Female: deferred Skin General skin exam: no rashes or lesions noted Rashes: no rashes Neuro General: No confusion Cranial nerves: Yes Equal, round and reactive pupils present and Yes Normal hearing present Cognition (Neuro): normal cognition Gait exam (Neuro): Normal gait present Motor exam (neuro): 5/5 motor strength present throughout Deep tendon reflexes (DTR's): Right brachioradialis reflex intensity grade: 2+, Left brachioradialis reflex intensity grade: 2+, Right patellar reflex intensity grade: 2+ and Left patellar reflex intensity grade: 2+ Extrem General: No edema Office Procedures Flu Questionnaire Does the patient have a severe egg allergy?: No Does the patient have severe life threatening allergies?: No Does the patient have a fever or illness today?: No Has the patient ever had Guillain-Quilcene Syndrome?: No Has the patient ever had any past reaction to a flu shot?: No Results AMB Hemoglobin A1c AMB Hemoglobin A1c 5.6 % Last Edit by BRANDO Gilman on 06/16/24 11:40 Immunizations Fluarix Triv [id number] (PF) 45 mcg (15 mcg x 3)/0.5 mL IM syringe Performing Provider: Satish Llanos MD [facility] Administered by: Sri English RN on 06/16/24 11:47 Dose Route Admin Location Dispensed Lot Number Expiration Date NDC [employer] Supervisor 0.5 mL IM Left Deltoid 0.5 mL [id number] 02/22/25 [id number] Trigence 2 VIS Given Date VIS Provided VIS Publication Date 06/16/24 Single Vaccine 21 Eligibility Eligibility Date Funding Source Not [facility] Eligible 06/16/24 Private Results Reviewed Results Reviewed: Laboratory Last Values Hgb A1c (Clinic) 5.6 % (4.0-6.0) 06/16/24 11:19 Assessment & Plan Assessment & Plan (1) Medicare annual wellness visit, subsequent: Code(s): Z00.00 - Encounter for general adult medical examination without abnormal findings Plan: Patient is advised to eat healthy, keep well hydrated, keep active and have adequate sleep. (2) Dilated cardiomyopathy: Comment: Dr. Yarbrough April 2024 Code(s): I42.0 - Dilated cardiomyopathy Plan: Reviewed the notes and has seen Cardiology recovered ejection fraction continuing with present medication bisoprolol lisinopril spironolactone (3) Epilepsy: Comment: EEG negative February 2019, August 2023 Code(s): G40.909 - Epilepsy, unspecified, not intractable, without status epilepticus Qualifiers: Epilepsy type: unspecified Intractability: not intractable Status epilepticus: without status epilepticus Qualified Code(s): G40.909 - Epilepsy, unspecified, not intractable, without status epilepticus Plan: Continue with Depakote and patient follows up with Neurology. (4) Mental disability: Code(s): F79 - Unspecified intellectual disabilities Plan: Continue with psychiatric follow-up. (5) Mixed hyperlipidemia: Code(s): E78.2 - Mixed hyperlipidemia Plan: Avoid fried foods, chicken skin, eggs, butter margarine, pastries and meat. Be it pork or beef they have a lot of cholesterol LDL goal of less than 130 and triglyceride of less than 150 (6) Impaired glucose tolerance: Comment: Per staff reports: diarrhea is lessening after switching to lactose free options May recommend assessing for celiac if symptoms continue Code(s): R73.02 - Impaired glucose tolerance (oral) Plan: Decrease the amount of carbohydrate intake, pasta, bread, rice and potatoes are all sugar and that is aside from all the sweet stuff, remember that fruits are good but they are Sweet also. (7) Liver mass: Comment: November 2021 no change September 2023 stable Code(s): R16.0 - Hepatomegaly, not elsewhere classified Plan: Stable on September ultrasound will continue to follow-up. (8) Gallbladder polyp: Comment: September 2023 Code(s): K82.4 - Cholesterolosis of gallbladder Plan: Will continue to follow-up with ultrasound in September. Orders: Orders AMB Hemoglobin A1c Today R73.02 - Impaired glucose tolerance (oral) Influenza 1392-1264 Immunization Today Z23 - Encounter for immunization Free T4 (Free Thyroxine) 3 Months R73.02 - Impaired glucose tolerance (oral) Thyroid Stimulating Hormone 3 Months R73.02 - Impaired glucose tolerance (oral) Hemoglobin A1c 3 Months R73.02 - Impaired glucose tolerance (oral) Vitamin D 25-OH Total 3 Months R73.02 - Impaired glucose tolerance (oral) Lipid Panel 3 Months E78.00 - Pure hypercholesterolemia, unspecified, R73.02 - Impaired glucose tolerance (oral) Complete Blood Count Auto Diff 3 Months R73.02 - Impaired glucose tolerance (oral) Comprehensive Met. Panel 3 Months R73.02 - Impaired glucose tolerance (oral) Vitamin B12 and Folate 3 Months R73.02 - Impaired glucose tolerance (oral) B Type Natriuretic Peptide 3 Months R73.02 - Impaired glucose tolerance (oral) Valproate 3 Months G40.909 - Epilepsy, unspecified, not intractable, without status epilepticus Quality Reporting (2019) Depression/Bipolar (159/160/161/177) PHQ-9: Total score: 3 Coding Level of Care Code Medicare Subsequent (G0439) Diagnoses Medicare annual wellness visit, subsequent Z00.00 Dilated cardiomyopathy I42.0 Nonintractable epilepsy without status epilepticus, unspecified epilepsy type G40.909 Epilepsy type: unspecified Intractability: not intractable Status epilepticus: without status epilepticus Mental disability F79 Mixed hyperlipidemia E78.2 Impaired glucose tolerance R73.02 Liver mass R16.0 Gallbladder polyp K82.4
[2024-06-16 11:26] VITALS: BP 130/70; PULSE 78; O2SAT 97; BMI 38.8
== END 2024-06-16 12:24 | disposition home or self-care (01) ==
PROVIDERS: PCP Internal Medicine; Visit Provider Internal Medicine
DX: Z00.00 Encounter for general adult medical examination without abnormal findings (principal); I42.0 Dilated cardiomyopathy; G40.909 Epilepsy, unspecified, not intractable, without status epilepticus; F79 Unspecified intellectual disabilities; E78.2 Mixed hyperlipidemia; R73.02 Impaired glucose tolerance (oral); R16.0 Hepatomegaly, not elsewhere classified; K82.4 Cholesterolosis of gallbladder

== ENCOUNTER → 2024-06-16 11:14 | Outpatient (BNVA) | payer MEDICARE, MEDICAID, SELFPAY | PROVIDERS: PCP Internal Medicine; Visit Provider Internal Medicine | DX: Z00.00 Encounter for general adult medical examination without abnormal findings (principal); Z23 Encounter for immunization; I42.0 Dilated cardiomyopathy; G40.909 Epilepsy, unspecified, not intractable, without status epilepticus; R73.02 Impaired glucose tolerance (oral); F79 Unspecified intellectual disabilities; E78.2 Mixed hyperlipidemia; R16.0 Hepatomegaly, not elsewhere classified; K82.4 Cholesterolosis of gallbladder | CPT/HCPCS: 83036; 90471; 90656; 96127 ==

== ENCOUNTER 2024-07-30 12:44 | Outpatient (AMB) | payer MEDICARE, MEDICAID, SELFPAY ==
[2024-07-30 12:45] VITALS: BP 122/74; PULSE 83; O2SAT 98; BMI 40.0
--- NOTE | 2024-07-30 12:45 | MHC.PC.OV ---
Vital Signs 07/30/24 12:45 Height 4 ft 9 in Weight 185 lb BMI 40.0 BP 122/74 Blood Pressure Location Lt brachial Position Sitting Pulse 83 Pulse Source Pulse Oximeter Pulse Oximetry (%) 98 Oxygen Delivery Method Room Air Intake Visit Reasons: seizureDisorder Allergies penicillin G Allergy (Severe, Verified 07/30/24 12:48) Hives amoxicillin [Augmentin] Allergy (Unknown, Verified 07/30/24 12:46) Unknown clavulanic acid [Augmentin] Allergy (Unknown, Verified 07/30/24 12:46) Unknown Tobacco use date assessed: 07/30/24 Dental Screening Dental Screen Date: 07/30/24 Did you have a dental visit in the last 12 months?: Yes Did you have a dental problem in the last 6 months where you did not have access to dental care?: No Was dental information given to patient?: Patient has dentist HPI seizureDisorder HPI Details The patient is a 39-year-old female presenting with a history of multiple chronic conditions including Down Syndrome, dilated cardiomyopathy, seizure disorder, hypercholesterolemia, impaired glucose tolerance, and morbid obesity for follow-up care. She has been under neurology consultation for seizure disorder, managed with Depakote, and was last seen in June, maintaining stable control over her seizures. Blood work conducted in August indicated elevated blood sugar and triglyceride levels, suggestive of ongoing impaired glucose tolerance. The patient has a notable history of morbid obesity, with current weight measurements indicating a body mass index around 40, which is significantly elevated from previous measurements and poses increased cardiovascular risk due to her pre-existing cardiac condition. social workers report dietary changes that unfortunately have led to weight gain despite efforts to provide healthy meal options. Blood pressure has remained stable, and she continues to be monitored by cardiology. Recent laboratory results exhibited fasting blood glucose levels of 117 mg/dL, which approaches the threshold for diabetes diagnosis but does not meet it. Her health management requires careful monitoring of her obesity and cardiovascular status, particularly given her history of heart disease and present impaired glucose tolerance. [facility] Medical History (Updated 07/30/24 @ 13:22 by Satish Llanos MD) Obesity Obesity COVID-19 virus infection Liver mass Aortic insufficiency Abscess of right axilla Abdominal bloating Superficial bruising of abdominal wall Mixed hyperlipidemia Mental disability Vitamin D deficiency Morbid obesity with BMI of 40.0-44.9, adult Dilated cardiomyopathy Epilepsy Postprandial diarrhea UTI (urinary tract infection) Surgical History No pertinent past surgical history Family History Father No problems noted. Mother Heart problem Social History Housing: Assisted Living Facility Alcohol intake: never Patient Tobacco Use Status: Never used Tobacco Tobacco use type: Cigarette e-Cigarette/Vaping Use: Never Used Second Hand Smoke Exposure: No service: No Current occupational status: disabled Cognitive needs: Yes Hearing needs: No Vision needs: Yes Questionnaire PHQ-9 Over the last 2 weeks, how often have you been bothered by any of the following problems? 1. Little interest or pleasure in doing things: not at all 2. Feeling down, depressed, or hopeless: not at all 3. Trouble falling or staying asleep, or sleeping too much: not at all 4. Feeling tired or having little energy: not at all 5. Poor appetite or overeating: more than half the days 6. Feeling bad about yourself - or that you are a failure or have let yourself or your family down: not at all 7. Trouble concentrating on things, such as reading the newspaper or watching television: several days 8. Moving or speaking so slowly that other people could have noticed. Or the opposite - being so fidgety or restless that you have been moving around a lot more than usual: not at all 9. Thoughts that you would be better off or of hurting yourself in some way: not at all Total score: 3 Depression Screening Interpretation: Positive Depression Screening Done: Yes Source: Developed by Drs. Jonas Stoll, Patsy Vidal, Fabián Fernandes and colleagues, with an educational haile from [employer]. Thrive Questionnaire Date Thrive assessed: 09/06/23 AUDIT C Alcohol Use Questionnaire (AUDIT-C) 1. How often do you have a drink containing alcohol?: Never 3. How often do you have six or more drinks on one occasion?: Never Total Score: 0 Score Reviewed/Action Taken: No SAVANNAH-7 AMB Questionnaire SAVANNAH-7 Date SAVANNAH - 7 assessed: 09/06/23 Source: Developed by Drs. Jonas Stoll, Patsy Vidal, Fabián Fernandes and colleagues, with an educational haile from [employer]. Physical exam (Primary Care) Vital Signs: Last Vital Signs Pulse 83 07/30/24 12:45 BP 122/74 07/30/24 12:45 Pulse Ox 98 07/30/24 12:45 Oxygen Delivery Method Room Air 07/30/24 12:45 BMI result Body Mass Index 40.0 Tobacco/Smoking Status: Tobacco use Status Tobacco use date assessed 07/30/24 07/30/24 12:51 Patient Tobacco Use Status Never used Tobacco 07/30/24 12:51 Tobacco use type Cigarette 07/30/24 12:51 e-Cigarette/Vaping Use Never Used 07/30/24 12:51 PHQ-9: PHQ-9 Score PHQ-9: Total score 3 07/30/24 12:51 Depression Screening Interpretation: Positive Thrive Assessment: Date of Thrive Assessment Date Thrive assessed 09/06/23 07/30/24 12:51 Const General: alert; No acute distress Eyes Conjunctivae: conjunctivae normal Resp Auscultation: clear to auscultation bilaterally Cardio Rate: regular rate Rhythm: regular rhythm GI Inspection: Yes normal to inspection Extrem General: Yes normal to inspection and No edema Coding Level of Care Code Est Pt Level 4 (62207) Diagnoses Morbid obesity due to excess calories E66.01 Dilated cardiomyopathy I42.0 Nonintractable epilepsy without status epilepticus, unspecified epilepsy type G40.909 Epilepsy type: unspecified Intractability: not intractable Status epilepticus: without status epilepticus Mixed hyperlipidemia E78.2 Impaired glucose tolerance R73.02 Assessment & Plan Assessment & Plan (1) Morbid obesity due to excess calories: Code(s): E66.01 - Morbid (severe) obesity due to excess calories Category: Medical Plan: Need to diet and exercise (2) Dilated cardiomyopathy: Comment: Dr. Yarbrough April 2024 Code(s): I42.0 - Dilated cardiomyopathy Category: Medical Plan: Continue follow-up with cardiology (3) Epilepsy: Comment: EEG negative February 2019, August 2023 Code(s): G40.909 - Epilepsy, unspecified, not intractable, without status epilepticus Category: Medical Qualifiers: Epilepsy type: unspecified Intractability: not intractable Status epilepticus: without status epilepticus Qualified Code(s): G40.909 - Epilepsy, unspecified, not intractable, without status epilepticus Plan: Patient has seen Neurology and continuing with valproate (4) Mixed hyperlipidemia: Code(s): E78.2 - Mixed hyperlipidemia Category: Medical Plan: Avoid fried foods, chicken skin, eggs, butter margarine, pastries and meat. Be it pork or beef they have a lot of cholesterol will request for blood work in a couple of months. (5) Impaired glucose tolerance: Comment: Per staff reports: diarrhea is lessening after switching to lactose free options May recommend assessing for celiac if symptoms continue Code(s): R73.02 - Impaired glucose tolerance (oral) Category: Medical Plan: Decrease the amount of carbohydrate intake, pasta, bread, rice and potatoes are all sugar and that is aside from all the sweet stuff, remember that fruits are good but they are Sweet also. Plan - Maintain seizure disorder management with Depakote as previously effective. - Continue with follow-up care for dilated cardiomyopathy under cardiology supervision. - Address hypercholesterolemia with diet modifications emphasizing reduced intake of saturated fats and increased physical activity; monitoring lipid panel levels is necessary. - Closely manage impaired glucose tolerance through dietary modifications aimed at glycemic control; further laboratory evaluations are indicated for monitoring glucose trends. - Implement weight management strategies focusing on dietary counseling and exercise interventions to address morbid obesity and associated cardiovascular risks. - Recommend adherence to scheduled laboratory tests to monitor metabolic parameters and ensure timely detection of any adverse changes. - Re-evaluate vaccine status and encourage continuation of current immunizations; consider COVID-19 booster if appropriate. Patient was informed and verbally consented to the use of an ambient scribe for clinic note documentation during this visit.
== END 2024-07-30 13:35 | disposition home or self-care (01) ==
PROVIDERS: PCP Internal Medicine; Visit Provider Internal Medicine
DX: I42.0 Dilated cardiomyopathy (principal); E66.01 Morbid (severe) obesity due to excess calories; G40.909 Epilepsy, unspecified, not intractable, without status epilepticus; Z68.41 Body mass index [BMI] 40.0-44.9, adult; E78.2 Mixed hyperlipidemia; R73.02 Impaired glucose tolerance (oral)

== ENCOUNTER → 2024-07-30 12:44 | Outpatient (BNVA) | payer MEDICARE, MEDICAID, SELFPAY | PROVIDERS: PCP Internal Medicine; Visit Provider Internal Medicine | DX: E66.01 Morbid (severe) obesity due to excess calories (principal); I42.0 Dilated cardiomyopathy; G40.909 Epilepsy, unspecified, not intractable, without status epilepticus; E78.2 Mixed hyperlipidemia; R73.02 Impaired glucose tolerance (oral) | CPT/HCPCS: 96127; 99212 ==

== ENCOUNTER 2024-09-01 06:37 | Outpatient (REF) | payer MEDICARE, MEDICAID, SELFPAY ==
[2024-09-01 06:52] LABS: MANUAL DIFF FLAG NO
[2024-09-01 07:23] LABS: Basophils Percent Auto 0.6 % (0-2); Eosinophils Absolute Auto 0.1 X10*3/uL (0.0-0.4); Eosinophils Percent Auto 1.6 % (0-4); Hemoglobin 13.4 g/dl (12.0-16.0); Imm Gran Abs Auto 0.03 X10*3/uL (0.00-0.03); Imm Gran Pct Auto 0.4 % (0.0-0.4); Lymphocytes Absolute Auto 2.4 X10*3/uL (1.2-4.9); Mean Corpuscular HGB Conc 32.7 g/dl (31.0-35.0); Mean Corpuscular Hemoglobin 30.3 pg (27.0-33.0); Mean Corpuscular Volume 92.8 fL (80.0-98.0); Mean Platelet Volume 12.1 fL (9.4-12.3); Monocytes Absolute Auto 0.7 X10*3/uL (0.1-1.2); Monocytes Percent Auto 10.3 % (2-11); Neutrophils Absolute Auto 3.5 x10*3/uL (2.0-8.3); Neutrophils Percent Auto 52.1 % (45-73); Platelet Count 167 X10*3/uL (160-400); Red Blood Count 4.42 X10*6/uL (4.20-5.50); Red Cell Distribution Width 12.8 % (11.0-16.0); White Blood Count 6.8 X10*3/uL (4.8-10.8)
[2024-09-01 07:33] LABS: Estimated Average Glucose 111 mg/dL; Hemoglobin A1C 128.7474 umol/L; Hemoglobin A1c % 5.5 % (<6.0); Total Hemoglobin (HGBA1C) 3481.5648 umol/L
[2024-09-01 07:43] LABS: B Type Natriuretic Peptide 35 pg/mL (<100)
[2024-09-01 08:02] LABS: Valproate 77.5 mcg/mL (50.0-100.0)
[2024-09-01 08:28] LABS: Alanine Aminotransferase 18 U/L (0-31); Albumin Level 4.1 g/dL (3.5-5.0); Alkaline Phosphatase 81 U/L (39-117); Anion Gap 14 (12-20); Aspartate Amino Transferase 18 U/L (5-31); Bilirubin Total 0.3 mg/dL (0.0-1.0); Blood Urea Nitrogen 14 mg/dL (9-16); Calcium 9.8 mg/dL (8.4-10.2); Carbon Dioxide 29 mmol/L (22-29); Chloride 102 mmol/L (96-108); Cholesterol 202 mg/dL (<200); Estimated Glomerular Filt Rate > 60; Glucose Random 94 mg/dL (60-115); HDL Cholesterol 46 mg/dL (>40); LDL Cholesterol Calculated 120 mg/dL (<100); Magnesium 1.6 mg/dL (1.6-2.6); Potassium 4.2 mmol/L (3.3-5.1); Sodium 141 mmol/L (135-145); Total Protein 7.4 g/dL (6.5-8.0); Triglycerides 180 mg/dL (<150)
[2024-09-01 08:53] LABS: Folate 10.5 ng/mL (> or = 4.0); Vitamin B12 464 pg/mL (200-900)
[2024-09-01 09:06] LABS: Free T4 (Free Thyroxine) 0.94 ng/dL (0.71-1.85); Thyroid Stimulating Hormone 3.87 uIU/mL (0.32-4.0); Vitamin D 25-OH Total 30.2 ng/mL (>30)
== END 2024-09-01 06:38 | disposition home or self-care (01) ==
LOC: HO.LAB 06:37
PROVIDERS: PCP Internal Medicine; Visit Provider Internal Medicine
DX: R16.0 Hepatomegaly, not elsewhere classified (principal); R73.02 Impaired glucose tolerance (oral); G40.909 Epilepsy, unspecified, not intractable, without status epilepticus; E78.00 Pure hypercholesterolemia, unspecified
CPT/HCPCS: 36415; 80053; 80061; 80164; 82306; 82607; 82746; 83036; 83735; 83880; 84439; 84443; 85025

== ENCOUNTER 2024-10-15 10:38 | Outpatient (AMB) | payer MEDICARE, MEDICAID, SELFPAY ==
--- NOTE | 2024-10-15 11:10 | MHC.PC.OV ---
Vital Signs 10/15/24 11:12 Height 4 ft 9 in Weight 190 lb 2 oz BMI 41.1 BP 120/70 Blood Pressure Location Lt brachial Position Sitting Pulse 76 Pulse Source Pulse Oximeter Temp 96.8 F Temp Source Temporal Artery Scan Pulse Oximetry (%) 97 Oxygen Delivery Method Room Air Intake Visit Reasons: intergluteal cleft rash, blood in stool Intake Note: Patient is here to follow up on Intergluteal cleft rash, blood in stool. Sanitation Worker Cleaning Equipment Required: No Reactor Technician: Present Accompanied by: Staff Allergies penicillin G Allergy (Severe, Verified 10/15/24 11:11) Hives amoxicillin [Augmentin] Allergy (Unknown, Verified 10/15/24 11:11) Unknown clavulanic acid [Augmentin] Allergy (Unknown, Verified 10/15/24 11:11) Unknown Tobacco use date assessed: 10/15/24 Dental Screening Dental Screen Date: 10/15/24 Did you have a dental visit in the last 12 months?: Yes Did you have a dental problem in the last 6 months where you did not have access to dental care?: No Was dental information given to patient?: Patient has dentist HPI intergluteal cleft rash, blood in stool HPI Details 39-year-old obese female with a history of seizures, mental disability, dilated cardiomyopathy, hypercholesterolemia, impaired glucose tolerance coming in for acute problem. Patient presents today with staff member. Presenting with rectal bleeding and an erythematous rash on the buttocks. Rectal Bleeding was first noticed during assistance in a day program setting, with initial blood in the stool observed. Bleeding did not persist in subsequent bowel movements, aligning with symptoms of anal fissure or hemorrhoids. Erythematous Rash was noted to be red and located at the beginning of the buttock cleavage. The patient has not experienced pain or irritation from the rash and was previously unaware of its presence. No cream has been tried to treat the rash. [facility] Medical History Obesity Obesity COVID-19 virus infection Liver mass Aortic insufficiency Abscess of right axilla Abdominal bloating Superficial bruising of abdominal wall Mixed hyperlipidemia Mental disability Vitamin D deficiency Morbid obesity with BMI of 40.0-44.9, adult Dilated cardiomyopathy Epilepsy Postprandial diarrhea UTI (urinary tract infection) Surgical History No pertinent past surgical history Family History Father No problems noted. Mother Heart problem Social History Housing: Assisted Living Facility Alcohol intake: never Patient Tobacco Use Status: Never used Tobacco Tobacco use type: Cigarette e-Cigarette/Vaping Use: Never Used Second Hand Smoke Exposure: No service: No Current occupational status: disabled Cognitive needs: Yes Hearing needs: No Vision needs: Yes Questionnaire PHQ-9 Over the last 2 weeks, how often have you been bothered by any of the following problems? 1. Little interest or pleasure in doing things: not at all 2. Feeling down, depressed, or hopeless: not at all 3. Trouble falling or staying asleep, or sleeping too much: not at all 4. Feeling tired or having little energy: not at all 5. Poor appetite or overeating: not at all 6. Feeling bad about yourself - or that you are a failure or have let yourself or your family down: not at all 7. Trouble concentrating on things, such as reading the newspaper or watching television: not at all 8. Moving or speaking so slowly that other people could have noticed. Or the opposite - being so fidgety or restless that you have been moving around a lot more than usual: not at all 9. Thoughts that you would be better off or of hurting yourself in some way: not at all Total score: 0 Depression Screening Interpretation: Negative Depression Screening Done: Yes Source: Developed by Drs. Jonas Stoll, Patsy Vidal, Fabián Fernandes and colleagues, with an educational halie from [employer]. Thrive Questionnaire Date Thrive assessed: 10/15/24 I am a: Patient What is your living situation today?: I have a steady place to live Within the past 12 months, did the food you bought not last and you didn't have the money to get more?: Never true Within the past 12 months, did you worry whether your food would run out before you got money to buy more?: Never true Do you have trouble paying for medicines?: No Do you have trouble getting transportation to medical appointments?: No Do you have trouble paying your heating and electricity bill?: No Do you have trouble taking care of your child, family member or friend?: No Do you have trouble with day-to-day activities such as bathing, preparing meals, shopping, managing finances, etc.?: No Are you currently unemployed and looking for a job?: No Are you interested in more education?: No Please select the resources that you would like help with: None Currently or been in a relationship where the following occur: No concerns reported THRIVE Score: 0 AUDIT C Alcohol Use Questionnaire (AUDIT-C) 1. How often do you have a drink containing alcohol?: Never Total Score: 0 SAVANNAH-7 AMB Questionnaire SAVANNAH-7 Date SAVANNAH - 7 assessed: 10/15/24 Feeling nervous, anxious, or on edge: 0 = Not at all Not being able to stop or control worryin = Not at all Worrying too much about different things: 0 = Not at all Trouble relaxin = Not at all Being so restless that it is hard to sit still: 0 = Not at all Becoming easily annoyed or irritable: 0 = Not at all Feeling afraid as if something awful might happen: 0 = Not at all Total SAVANNAH-7 score (0-4 normal; 5-9 mild; 10-14 moderate; 15-21 severe): 0 Source: Developed by Drs. Jonas Stoll, Patsy Vidal, Fabián Fernandes and colleagues, with an educational haile from [employer]. Review of Systems Const Denies body aches, Denies chills, Denies fever(s) and Denies poor appetite Eyes Reports no additional complaints ENT Reports no additional complaints Card Denies chest pain and Denies dyspnea Resp Denies cough and Denies dyspnea GI Denies abdominal pain, Denies constipation and Denies diarrhea Reports no additional complaints Musc Reports no additional complaints and Denies abnormal gait Skin/Breast Reports system reviewed and no additional complaints, except as documented Neuro Denies abnormal gait Psych Reports no additional complaints Physical exam (Primary Care) Vital Signs: Last Vital Signs Temp 96.8 F 10/15/24 11:12 Pulse 76 10/15/24 11:12 BP 120/70 10/15/24 11:12 Pulse Ox 97 10/15/24 11:12 Oxygen Delivery Method Room Air 10/15/24 11:12 BMI result Body Mass Index 41.1 Tobacco/Smoking Status: Tobacco use Status Tobacco use date assessed 10/15/24 10/15/24 11:17 Patient Tobacco Use Status Never used Tobacco 10/15/24 11:17 Tobacco use type Cigarette 10/15/24 11:17 e-Cigarette/Vaping Use Never Used 10/15/24 11:17 PHQ-9: PHQ-9 Score PHQ-9: Total score 0 10/15/24 11:20 Depression Screening Interpretation: Negative Thrive Assessment: Date of Thrive Assessment Date Thrive assessed 10/15/24 10/15/24 11:17 Currently or been in a relationship where the following occur: No concerns reported Const General: cooperative, healthy appearing, comfortable and no acute distress Orientation/consciousness: patient oriented x3 HENMT Head: Yes normocephalic Ears: hearing grossly normal bilaterally General nose exam: Normal external nose present Eyes General: appearance normal, both eyes and all related structures Conjunctivae: conjunctivae normal Neck Neck: Yes full ROM and Yes no lymphadenopathy Resp Effort & Inspection: normal respiratory effort Auscultation: clear to auscultation bilaterally, no crackles, no rales, no rhonchi and no wheezes Cardio Rate: regular rate Rhythm: regular rhythm Skin Other: erythematous rash between the buttocks General skin exam: no rashes or lesions noted Neuro General: patient oriented x3 Gait exam (Neuro): Normal gait present Extrem General: Yes normal to inspection, Yes full ROM and No edema Psych Affect: normal affect Attitude: cooperative Insight: Good insight present (Psych) Judgement: Good judgement present (Psych) Coding Level of Care Code Est Pt Level 3 (65625) Diagnoses Morbid obesity due to excess calories E66.01 Candidiasis B37.9 Rectal bleeding K62.5 Assessment & Plan Assessment & Plan (1) Morbid obesity due to excess calories: Code(s): E66.01 - Morbid (severe) obesity due to excess calories Category: Medical Plan: Healthy diet and regular exercise is encouraged. (2) Candidiasis: Code(s): B37.9 - Candidiasis, unspecified Category: Medical Plan: An antifungal cream is prescribed for the rash, which appears to be a yeast infection, with application suggested twice daily. After the rash resolves, nystatin powder will be used to maintain dryness and prevent recurrence. Follow-up care will be provided in the next monthly visit with Dr. Llanos to evaluate treatment efficacy and any required continuation or adjustment of medications. (3) Rectal bleeding: Code(s): K62.5 - Hemorrhage of anus and rectum Category: Medical Plan: Single episode of rectal bleeding likely related to bleeding hemorrhoid or anal fissure. Recommend continued surveillance. The patient is advised to monitor for any further rectal bleeding potentially due to anal fissure or hemorrhoids, with preventive recommendations including increased hydration, dietary fiber, and physical exercise. Plan Patient was informed and verbally consented to the use of an ambient scribe for clinic note documentation during this visit. This note was constructed using voice recognition software. While every effort has been made to ensure accuracy and maintenance supervisor, still areas may have been included sometimes these areas may affect the content or meeting of the given symptoms. Total time spent caring for the patient today was 20 minutes. This includes time spent before the visit reviewing the chart, time spent during the visit, and time spent after the visit and documentation. Medications: New clotrimazole 1% 1 appl topical BID 15 grams 0RF nystatin 1 appl topical DAILY 30 grams 0RF
[2024-10-15 11:12] VITALS: BP 120/70; PULSE 76; TEMP 36; O2SAT 97; BMI 41.1
--- OUTSIDE RECORDS SUMMARY | 2024-10-15 11:48 | XMS_ITS ---
Author Organization [facility] Address [address] [place] [address] Care Team Providers Care Communications Tower Technician Name Role Phone Satish Llanos MD Primary Care Provider Nathen Carter Jr Unavailable RESULTS Component Value Reference Range Notes GI PANEL Reviewed date:09/19/2023 09:40:23 AM Interpretation: Performing Lab:[facility], [address] [place] [id number] Notes/Report: Campylobacter Not Detected Not Detect. Plesiomonas shigelloides Not Detected Not Detect. Salmonella Not Detected Not Detect. Vibrio Not Detected Not Detect. Vibrio Cholerae Not Detected Not Detect. Yersinia enterocolitica Not Detected Not Detect. E. coli EAEC Not Detected Not Detect. E. coli EPEC Not Detected Not Detect. E. coli ETEC Not Detected Not Detect. E. coli STEC Not Detected Not Detect. E. coli O157 Not applicable Not Detect. E. coli containing the O157 antigen are a subset of Shiga-like toxin-producing E. coli (STEC). Shigella sp./EIEC Not Detected Not Detect. Cryptosporidium Not Detected Not Detect. Cyclospora cayetanensis Not Detected Not Detect. Entamoeba histolytica Not Detected Not Detect. Giardia lamblia Not Detected Not Detect. Adenovirus F 40/41 Not Detected Not Detect. Astrovirus Not Detected Not Detect. Norovirus GI/GII Not Detected Not Detect. Rotavirus A Not Detected Not Detect. Sapovirus Not Detected Not Detect. All results must be correlated with clinical findings. Negative results do not exclude the possibility of gastrointestinal infection and should not be used as the sole basis for diagnosis, treatment, or other management decisions. Virus, bacteria, and parasite nucleic acid may persist in vivo independently of organism viability. Additionally, some organisms may be carried symptomatically. Detection of organism targets does not imply that the corresponding organisms are infectious or are the causative agents for clinical symptoms. There is a risk of false negative values due to the presence of sequence variants in the gene targets of the assay, amplification inhibitors in specimens, or inadequate numbers of organisms for amplification. The identification of several diarrheagenic E. coli pathotypes has historically relied upon phenotypic characteristics. This panel targets genetic determinants characteristic of most pathogenic strains, but may not detect all strains having phenotypic characteristics of a pathotype. The performance of this test has not been established for monitoring treatment of infection with any of the panel organisms. This assay is performed by Multiplexed PCR, utilizing the [employer] Array. REASON FOR VISIT gi panel Encounters Encounter Location Date Provider Diagnosis [facility] [address] [facility] [place] [address] 09/09/2023 Nathen Mejias Jr Diarrhea, unspecified type R19.7 ASSESSMENTS Encounter Date Diagnosis Assessment Notes Treatment Notes Treatment Clinical Notes 09/09/2023 Diarrhea, unspecified type (ICD-10 - R19.7) PLAN OF TREATMENT No Information
--- OUTSIDE RECORDS SUMMARY | 2024-10-15 11:48 | XMS_ITS | Clinical Summary ---
Author Organization [address] [facility] Address [address] [place] [address] Phone Care Team Providers Care Doll Wigs Hackler Name Role Phone Satish Llanos MD Primary Care Provider [phone] Allergies Active Allergy Reactions Criticality Noted Date Comments Amoxicillin 05/22/2024 Clavulanic Acid 05/22/2024 Medications No known medications Active Problems Problem Noted Date Diagnosed Date Morbid obesity with body mas s index (BMI) of 40.0 to 44.9 in adult 07/15/2024 Vitamin D deficiency 05/22/2024 UTI (urinary tract infection) 05/22/2024 Superficial bruising of abdominal wall Postprandial diarrhea 05/22/2024 Mixed hyperlipidemia 05/22/2024 Mental disability 05/22/2024 Liver mass 05/22/2024 Dilated cardiomyopathy 05/22/2024 COVID-19 05/22/2024 Aortic insufficiency 05/22/2024 Abscess of right axilla 05/22/2024 Abdominal bloating 05/22/2024 Encounters Date Type Department Care Team Description 08/31/2024 10:15 AM EST Office Visit Orthopedic Surgery [facility] [address] [address] Francisco Tabor, DPM Hypertrophy of nail (Primary Dx); Hammer toe of left foot; Dermatophytosis of nail from Last 3 Months Social History Tobacco Use Types Packs/Day Years Used Date Smoking Tobacco: Never Assessed Comments Unknown Sex and Gender Information Value Date Recorded Sex Assigned at Not on file Legal Sex Female 5:09 PM EST Gender Identity Not on file Sexual Orientation Not on file Last Filed Vital Signs Vital Sign Reading Time Taken Comments Blood Pressure - - Pulse - - Temperature - - Respiratory Rate - - Oxygen Saturation - - Inhaled Oxygen Concentration - - Weight 81.2 kg (179 lb) 08/31/2024 10:20 AM EST Height 162.6 cm (5' 4.02 ) 08/31/2024 10:20 AM Cherie JOSHI Body Mass Index 30.71 08/31/2024 10:20 AM EST Plan of Treatment Upcoming Encounters Date Type Department Care Team (Late st Contact Info) Description 11/30/2024 10:00 AM EDT Office Visit Orthopedic Surgery - [facility] [address] [address] Francisco Tabor, PIPO [address] [address] Health Maintenance Due Date Last Done Comments Hepatitis B Vaccines (1 of 3 - 19+ 3-dose series) 2006 Cervical Cancer Screening: Pap Smear 02/15/2008 Pneumococcal Vaccine: Pediatrics (0 to 5 Years) and At-Risk Patients (6 to 64 Years) (2 of 2 - PCV) 12/06/2017 12/06/2016 COVID-19 Vaccine ( season) 2024 07/16/2021, 10/05/2020, 09/14/2020 Cholesterol Screening (Lipid Panel) 06/19/2024 Depression Screening 06/19/2024 HIV Screening 06/19/2024 Hepatitis C Screening 06/19/2024 Medicare Annual Wellness Visit 06/19/2024 Social Influencers of Health Screening 06/19/2024 DTaP,Tdap,and Td Vaccines (2 - Td or Tdap) 03/08/2032 03/08/2022 Influenza Vaccine Completed 06/16/2024, , 06/05/2022, Additional history exists HIB Vaccines Aged Out No longer eligi ble based on patient's age to complete this topic HPV Vaccines Aged Out No longer eligi ble based on patient's age to complete this topic Hepatitis A Vaccines Aged Out No long er eligible based on patient's age to complete this topic IPV Vaccines Aged Out No longer eligi ble based on patient's age to complete this topic MMR Vaccines Aged Out No longer eligi ble based on patient's age to complete this topic Meningococcal ACWY Vaccine Aged Out N o longer eligible based on patient's age to complete this topic Meningococcal B Vacine Aged Out No lo nger eligible based on patient's age to complete this topic RSV Immunization Patients Under 20 months Aged Out No longer eligible based on patient's age to complete this topic Varicella Vaccines Aged Out No longer eligible based on patient's age to complete this topic Insurance MEDICARE MEDICAID - [place] Care Teams Doll Wigs Hackler Relationship Specialty Start Date End Date Satish Llanos MD [address] [place] [address] [address] [facility] [place] [address] PCP - General 02/12/24
--- OUTSIDE RECORDS SUMMARY | 2024-10-15 11:48 | XMS_ITS | Patient Health Record ---
Author Organization [facility] Address [address] [place] [address] Care Team Providers Care Anesthetic Assistant Name Role Phone Satish Llanos MD Primary Care Provider Nathen Carter Jr Unavailable ALLERGIES Allergen (clinical drug ingredient) Drug/Non Drug Allergy documented on EMR Reaction Allergy Type Onset Date Status Penicillin (uncoded) Unknown Allergy Active REASON FOR REFERRAL No Information MEDICATIONS Medication SIG (Take, Route, Frequency, Duration) Notes Start Date End Date Status ZyPREXA 10 MG 1 tablet Orally Once a day for 30 day(s) Active Vitamin D-3 25 MCG (1000 UT) 1 capsule O rally Once a day for 30 day(s) Active Vitamin D3 1000 UNIT 1 capsule Orally On ce a day Active Clindamycin HCl 150 MG as directed Orally prn Active Robitussin Cough+Chest Jerzy DM 10-200 MG 1 capsule as needed Orally prn Active Mapap Arthritis Pain 650 MG 1 tablets as needed Orally every 8 hrs/prn Active Bacitracin Zinc 500 UNIT/GM 1 applicatio n to affected area Externally BID/PRN Active Loperamide HCl 2 MG 1 capsule as needed Orally ever 4 hours for diarrhea for 30 days 05/29/2021 Active Nasonex 50 MCG/ACT 2 sprays in each nos tril Nasally Once a day Active Spironolactone 25 MG 1/2 tablet Orally O nce a day Active Benztropine Mesylate 0.5 MG 1 tablet at bedtime Orally Once a day Active Methenamine Hippurate 1 GM 1 tablet Oral ly Twice a day Active Bisoprolol Fumarate 10 MG 1 tablet Orall y Once a day Active OLANZapine 10 MG 1 tablet Orally Once a day Active Prinivil 10 MG 1 tablet Orally Ever y Evening Active Lisinopril 10 MG 1 tablet Orally Once a day Active Hiprex 1 GM 1 tablet Orally Twic e a day Active Mometasone Furoate 2 sprays in each nos tril Nasally Active Depakote ER 500 MG 1 tablet Orally TWIC E A DAY Active Cetirizine HCl 10 MG 1 tablet Orally Onc e a day for 30 day(s) Active CeleXA 10 MG 1 tablet Orally Once a day Active Cleocin 600 MG Orally prn Acti ve Ammonium Lactate 12 % 1 application Exte rnally Twice a day Active Mapap 500 MG 1 capsule as needed Orally every 6 hrs Active Aldactone 12.5 Activ e IMMUNIZATIONS Vaccine Route Administration Date Status Comme nts Flu vaccine no Preserv 3 and > Unknown 07/10/2016 Admin istered Influenza Unknown 06/03/2019 Administered Influenza Unknown 06/08/2020 Administered Influenza Unknown 06/14/2021 Administered Influenza Unknown 08/26/2023 Administered SOCIAL HISTORY Sex Assigned At : Social History Observation Description Sex Assigned At Unknown PROBLEMS Problem Type ICD Code Onset Dates Problem Status W/U Status Risk SNOMED Code Notes Problem Abnormal x-ray of liver (R93.2) Active confirmed 226732766 Problem Abn find-biliary tract (R93.2) Active confirmed 536378478 Problem Focal nodular hyperplasia of liver (K76.89) Active confirmed 570719842 Problem Diarrhea, unspecified type (R19.7) Active confirmed [id number] Encounters Encounter Location Date Provider Diagnosis [facility] [address] [facility] [address] [facility] [address] [place] [address] 05/13/2024 Nathen Mejias Jr Diarrhea, unspecified type R19.7 ASSESSMENTS Encounter Date Diagnosis Assessment Notes Treatment Notes Treatment Clinical Notes 05/13/2024 Diarrhea, unspecified type (ICD-10 - R19.7) PLAN OF TREATMENT Pending Test Test Name Order Date LIVER PROFILE 05/04/2020 GGT 05/04/2020 STOOL WBC 09/02/2023 GIARDIA AG, STOOL EIA 09/02/2023 OVA & PARASITES (O&P) 09/02/2023 OVA & PARASITES (O&P) 08/17/2021 CULTURE, STOOL 08/17/2021 GI PANEL 09/02/2023 Insurance Providers Payer Name Payer Address Payer Phone Subscriber Number Group Number Insured Name Patient Relationship to Insured Coverage Start Date Coverage End Date MEDICARE OF [place] [address] [place] [address] [phone] [id number] BONY HALL Self - patient is the insured MEDICAID OF [facility] [address] BANDAR OLMEDO [id number] BONY HALL Self - patient is the insured MEDICAL (GENERAL) HISTORY Medical History History ICD Code dilated cardiomyopathy intellectual disability, mild seizure disorder elevated cholesterol focal nodular hyperplasia valvular heart disease, mild on echocard iography Surgical History Surgery Date(Month/Year)
--- OUTSIDE RECORDS SUMMARY | 2024-10-15 11:48 | XMS_ITS ---
Author Organization [facility] Address [address] [place] [address] Care Team Providers Care Front Sight Attacher Name Role Phone Po Satish PRITCHETT Primary Care Provider Nathen Carter Jr REASON FOR VISIT labs Encounters Encounter Location Date Provider Diagnosis [facility] [address] [place] [address] 09/19/2023 Nathen Mejias Jr PLAN OF TREATMENT No Information
--- OUTSIDE RECORDS SUMMARY | 2024-10-15 11:48 | XMS_ITS ---
Author Organization [facility] Address [address] [place], [place] [address] [place] [address] Care Team Providers Care Funeral Car Chauffeur Name Role Phone Satish Llanos MD Primary Care Provider Nathen Carter Jr [phone] REASON FOR VISIT refill MEDICATIONS Medication SIG (Take, Route, Fr equency, Duration) Notes Start Date End Date Status Loperamide HCl 2 MG 1 capsule as needed Orally ever 4 hours for diarrhea for 30 days 05/29/2021 Active Encounters Encounter Location Date Provider Diagnosis [facility] [address] [place] [address] [place] [address] 05/13/2024 Nathen Mejias Jr Diarrhea, unspecified type R19.7 ASSESSMENTS Encounter Date Diagnosis Assessment Notes Treatment Notes Treatment Clinical Notes 05/13/2024 Diarrhea, unspecified type (ICD-10 - R19.7) PLAN OF TREATMENT Medication Medication Name Sig Start Date Stop Date Notes Loperamide HCl 2 MG 1 capsule as needed Orally ever 4 hours for diarrhea for 30 days 05/29/2021
== END 2024-10-15 11:50 | disposition home or self-care (01) ==
PROVIDERS: PCP Internal Medicine
DX: B37.9 Candidiasis, unspecified (principal); E66.01 Morbid (severe) obesity due to excess calories; Z68.41 Body mass index [BMI] 40.0-44.9, adult; K62.5 Hemorrhage of anus and rectum

== ENCOUNTER → 2024-10-15 10:38 | Outpatient (BNVA) | payer MEDICARE, MEDICAID, SELFPAY | PROVIDERS: PCP Internal Medicine | DX: E66.01 Morbid (severe) obesity due to excess calories (principal); B37.9 Candidiasis, unspecified; K62.5 Hemorrhage of anus and rectum | CPT/HCPCS: 99212 ==

== ENCOUNTER 2024-11-18 09:53 | Outpatient (AMB) | payer MEDICARE, MEDICAID, SELFPAY ==
--- NOTE | 2024-11-18 10:14 | MHC.PC.OV ---
Vital Signs 11/18/24 10:17 Height 4 ft 9 in Weight 185 lb 8 oz BMI 40.1 BP 130/64 Blood Pressure Location Lt brachial Position Sitting Pulse 82 Pulse Source Pulse Oximeter Temp 97.2 F Temp Source Temporal Artery Scan Pulse Oximetry (%) 96 Oxygen Delivery Method Room Air Intake Visit Reasons: 3 month f/u Allergies penicillin G Allergy (Severe, Verified 11/18/24 10:22) Hives amoxicillin [Augmentin] Allergy (Unknown, Verified 11/18/24 10:22) Unknown clavulanic acid [Augmentin] Allergy (Unknown, Verified 11/18/24 10:22) Unknown Medication List - Last Reconciled 11/18/24 by Satish Llanos MD acetaminophen ER 650 mg PO Q4H PRN ammonium lactate 12% appl topical bacitracin apply a dab topical TO AFFECTED AREA TWICE WEEKLY PRN; bisoprolol fumarate 5 mg (1/2 x 10 mg) PO QAM 90 days blood pressure monitor (Blood Pressure Kit) As directed TWICE PER DAY cetirizine (Zyrtec) 10 mg PO DAILY 30 days cholecalciferol (vitamin D3) 25 mcg PO DAILY 90 days citalopram 10 mg PO DAILY clindamycin phosphate 1% 1 appl topical BID clotrimazole 1% 1 appl topical BID cromolyn 4% 1 drp ophthalmic (eye) QID PRN 7 days disposable gloves (Nitrile Exam Gloves) MEDIUM SIZE DX: F79, R32 EXTERNAL EIGHT TIMES A DAY divalproex ER 500 mg PO BID 90 days guaifenesin (Siltussin SA) 200 mg (10 mL) PO Q4H PRN lisinopril 10 mg PO DAILY methenamine hippurate 1 g PO BID 90 days nystatin 1 appl topical DAILY olanzapine 7.5 mg PO BEDTIME spironolactone 12.5 mg PO .QD Tobacco use date assessed: 11/18/24 Dental Screening Dental Screen Date: 11/18/24 Did you have a dental visit in the last 12 months?: Yes Did you have a dental problem in the last 6 months where you did not have access to dental care?: No Was dental information given to patient?: Patient has dentist COUNTS INCLUDE 234 BEDS AT THE [facility] Medical History Obesity Obesity COVID-19 virus infection Liver mass Aortic insufficiency Abscess of right axilla Abdominal bloating Superficial bruising of abdominal wall Mixed hyperlipidemia Mental disability Vitamin D deficiency Morbid obesity with BMI of 40.0-44.9, adult Dilated cardiomyopathy Epilepsy Postprandial diarrhea UTI (urinary tract infection) Surgical History No pertinent past surgical history Family History Father No problems noted. Mother Heart problem Social History Housing: Assisted Living Facility Alcohol intake: never Patient Tobacco Use Status: Never used Tobacco Tobacco use type: Cigarette e-Cigarette/Vaping Use: Never Used Second Hand Smoke Exposure: No service: No Current occupational status: disabled Cognitive needs: Yes Hearing needs: No Vision needs: Yes Questionnaire PHQ-9 Over the last 2 weeks, how often have you been bothered by any of the following problems? 1. Little interest or pleasure in doing things: not at all 2. Feeling down, depressed, or hopeless: not at all 3. Trouble falling or staying asleep, or sleeping too much: not at all 4. Feeling tired or having little energy: not at all 5. Poor appetite or overeating: not at all 6. Feeling bad about yourself - or that you are a failure or have let yourself or your family down: not at all 7. Trouble concentrating on things, such as reading the newspaper or watching television: not at all 8. Moving or speaking so slowly that other people could have noticed. Or the opposite - being so fidgety or restless that you have been moving around a lot more than usual: not at all 9. Thoughts that you would be better off or of hurting yourself in some way: not at all Total score: 0 Depression Screening Interpretation: Negative Depression Screening Done: Yes Source: Developed by Drs. Jonas Stoll, Patsy Vidal, Fabián Fernandes and colleagues, with an educational haile from [employer]. Thrive Questionnaire Date Thrive assessed: 11/18/24 I am a: Patient What is your living situation today?: I have a steady place to live Within the past 12 months, did the food you bought not last and you didn't have the money to get more?: Never true Within the past 12 months, did you worry whether your food would run out before you got money to buy more?: Never true Do you have trouble paying for medicines?: No Do you have trouble getting transportation to medical appointments?: No Do you have trouble paying your heating and electricity bill?: No Do you have trouble taking care of your child, family member or friend?: No Do you have trouble with day-to-day activities such as bathing, preparing meals, shopping, managing finances, etc.?: No Are you currently unemployed and looking for a job?: No Are you interested in more education?: No Please select the resources that you would like help with: None Currently or been in a relationship where the following occur: No concerns reported THRIVE Score: 0 AUDIT C Alcohol Use Questionnaire (AUDIT-C) 1. How often do you have a drink containing alcohol?: Never 3. How often do you have six or more drinks on one occasion?: Never Total Score: 0 SAVANNAH-7 AMB Questionnaire SAVANNAH-7 Date SAVANNAH - 7 assessed: 10/15/24 Feeling nervous, anxious, or on edge: 0 = Not at all Not being able to stop or control worryin = Not at all Worrying too much about different things: 0 = Not at all Trouble relaxin = Not at all Being so restless that it is hard to sit still: 0 = Not at all Becoming easily annoyed or irritable: 0 = Not at all Feeling afraid as if something awful might happen: 0 = Not at all Total SAVANNAH-7 score (0-4 normal; 5-9 mild; 10-14 moderate; 15-21 severe): 0 Source: Developed by Drs. Jonas Stoll, Patsy Vidal, Fabián Fernandes and colleagues, with an educational haile from [employer]. Physical exam (Primary Care) Vital Signs: Last Vital Signs Temp 97.2 F 11/18/24 10:17 Pulse 82 11/18/24 10:17 BP 130/64 11/18/24 10:17 Pulse Ox 96 11/18/24 10:17 Oxygen Delivery Method Room Air 11/18/24 10:17 BMI result Body Mass Index 40.1 Tobacco/Smoking Status: Tobacco use Status Tobacco use date assessed 11/18/24 11/18/24 10:25 Patient Tobacco Use Status Never used Tobacco 11/18/24 10:16 Tobacco use type Cigarette 11/18/24 10:16 e-Cigarette/Vaping Use Never Used 11/18/24 10:16 PHQ-9: PHQ-9 Score PHQ-9: Total score 0 11/18/24 11:01 Depression Screening Interpretation: Negative Thrive Assessment: Date of Thrive Assessment Date Thrive assessed 11/18/24 11/18/24 10:25 Currently or been in a relationship where the following occur: No concerns reported Const General: alert; No acute distress Eyes Conjunctivae: conjunctivae normal Resp Auscultation: clear to auscultation bilaterally Cardio Rate: regular rate Rhythm: regular rhythm GI Inspection: Yes normal to inspection Extrem General: Yes normal to inspection and No edema Coding Level of Care Code Est Pt Level 4 (87305) Diagnoses Dilated cardiomyopathy I42.0 Nonintractable epilepsy without status epilepticus, unspecified epilepsy type G40.909 Epilepsy type: unspecified Intractability: not intractable Status epilepticus: without status epilepticus Morbid obesity with BMI of 40.0-44.9, adult E66.01; Z68.41 Mixed hyperlipidemia E78.2 Impaired glucose tolerance R73.02 Assessment & Plan Assessment & Plan (1) Dilated cardiomyopathy: Comment: Dr. Yarbrough April 2024 Code(s): I42.0 - Dilated cardiomyopathy Category: Medical Plan: And follows up with Cardiology April last seen continuing with bisoprolol 5 mg once a day lisinopril 10 mg once a day and spironolactone 12.5 mg once a day (2) Epilepsy: Comment: EEG negative February 2019August 2023 Code(s): G40.909 - Epilepsy, unspecified, not intractable, without status epilepticus Category: Medical Qualifiers: Epilepsy type: unspecified Intractability: not intractable Status epilepticus: without status epilepticus Qualified Code(s): G40.909 - Epilepsy, unspecified, not intractable, without status epilepticus Plan: Patient is followed up by Neurology continuing with Depakote stable (3) Morbid obesity with BMI of 40.0-44.9, adult: Code(s): E66.01 - Morbid (severe) obesity due to excess calories; Z68.41 - Body mass index [BMI] 40.0-44.9, adult Category: Medical Plan: Diet and exercise (4) Mixed hyperlipidemia: Code(s): E78.2 - Mixed hyperlipidemia Category: Medical Plan: Avoid fried foods, chicken skin, eggs, butter margarine, pastries and meat. Be it pork or beef they have a lot of cholesterol LDL goal of less than 130 and triglyceride of less than 150 (5) Impaired glucose tolerance: Comment: Per staff reports: diarrhea is lessening after switching to lactose free options May recommend assessing for celiac if symptoms continue Code(s): R73.02 - Impaired glucose tolerance (oral) Category: Medical Plan: Decrease the amount of carbohydrate intake, pasta, bread, rice and potatoes are all sugar and that is aside from all the sweet stuff, remember that fruits are good but they are Sweet also. Plan History of Present Illness The patient is a 39-year-old female presenting with rectal bleeding. She has a medical history significant for seizure disorder, stable on Depakote. Her last known EEG was negative in August 2023. Cardiologically, she has a non-ischemic dilated cardiomyopathy with a history of a recovered left ventricular ejection fraction, for which she is on bisoprolol, lisinopril, and spironolactone. In terms of her metabolic profile, she has hypercholesterolemia and impaired glucose tolerance, with an elevated triglyceride level of 180 mg/dL noted earlier this year. Her liver mass has been described as stable. She was seen by cardiology in April 2024 for her cardiac condition and advised to continue the current medication regimen. Health Maintenance - Monitoring of weight and advocating for dietary modifications and exercise. - Regular follow-up with cardiology and neurology. - Scheduled physical examination in six months with accompanying fasting blood work beforehand. Social History - Diet discussed with a focus on reducing cholesterol and triglycerides. - An emphasis on the importance of maintaining a stable weight through diet and exercise. Review of Systems Physical Exam - General- Presence of morbid obesity noted. Results - Labs: Normal electrolytes, normal renal function, normal blood sugar levels, normal liver function tests, elevated triglycerides (180 mg/dL). Plan The primary aim is to monitor and manage the patient's rectal bleeding, with a scheduled follow-up physical exam in six months and pre-exam fasting blood work. Management strategies for existing chronic issues include maintaining current treatment plans for seizure disorder with Depakote, ensuring cardiology and neurology follow-ups are attended, and adherence to prescribed cardiac medications. Dietary and lifestyle changes to improve cholesterol levels continue to be emphasized, aiming to achieve target lipid levels. Patient was informed and verbally consented to the use of an ambient scribe for clinic note documentation during this visit. Discussion Notes I discussed with the patient the importance of continued monitoring and management of her rectal bleeding, encouraging her to attend a follow-up physical exam in six months, with necessary blood work completed prior. We reviewed her seizure management, confirming that her Depakote levels remained stable. I emphasized the need for adherence to her current cardiac medications, considering her stable recovery from cardiomyopathy. The conversation included the importance of a healthy diet, aimed at improving lipid profiles and weight management, and reinforced attendance at cardiology and neurology appointments. Patient Instructions - Schedule and attend follow-up physical examination in six months. - Complete fasting blood work before the scheduled appointment. - Continue current medications as directed for seizure disorder and cardiomyopathy. - Focus on maintaining a healthy diet and regular exercise. - Adhere to follow-up appointments with cardiology and neurology as advised. Orders: Orders Comprehensive Met. Panel 6 Months R73.02 - Impaired glucose tolerance (oral) Free T4 (Free Thyroxine) 6 Months R73.02 - Impaired glucose tolerance (oral) Hemoglobin A1c 6 Months R73.02 - Impaired glucose tolerance (oral) Vitamin B12 and Folate 6 Months R73.02 - Impaired glucose tolerance (oral) Vitamin D 25-OH Total 6 Months R73.02 - Impaired glucose tolerance (oral) Complete Blood Count Auto Diff 6 Months R73.02 - Impaired glucose tolerance (oral) Thyroid Stimulating Hormone 6 Months R73.02 - Impaired glucose tolerance (oral) B Type Natriuretic Peptide 6 Months R73.02 - Impaired glucose tolerance (oral) Lipid Panel 6 Months E78.00 - Pure hypercholesterolemia, unspecified, R73.02 - Impaired glucose tolerance (oral) Valproate 6 Months R73.02 - Impaired glucose tolerance (oral) Medications: Discontinued clotrimazole 1% Discontinued Reason: Patient Completed Course 1 appl topical BID 15 grams 0RF
[2024-11-18 10:17] VITALS: BP 130/64; PULSE 82; TEMP 36.2; O2SAT 96; BMI 40.1
--- OUTSIDE RECORDS SUMMARY | 2024-11-18 11:14 | XMS_ITS ---
Author Organization [facility] Address [address] [place] [phone] Care Team Providers Care Range Ecologist Name Role Phone Satish Llanos MD Primary Care Provider Nathen Carter Jr [phone] REASON FOR VISIT refill Medications Medication SIG (Take, Route, Fr equency, Duration) Notes Start Date End Date Status Loperamide HCl 2 MG 1 capsule as needed Orally ever 4 hours for diarrhea for 30 days 05/29/2021 Active Encounters Encounter Location Date Provider Diagnosis [facility] [address] [facility] [address] [place] [phone] 05/13/2024 Nathen Mejias Jr Diarrhea, unspecified type R19.7 Assessments Encounter Date Diagnosis (ICD Code) Assessment Notes Treatment Notes Treatment Clinical Notes Section Notes 05/13/2024 Diarrhea, unspecified type (ICD-10 - R19.7) Plan Of Treatment Medication Medication Name Sig Start Date Stop Date Notes Loperamide HCl 2 MG 1 capsule as needed Orally ever 4 hours for diarrhea for 30 days 05/29/2021 Progress Notes * OSCARJEREMIE POLIOB:1985 (39 yo F)Acc No.[id number]:05/13/2024 Patient:?BONY HALL :1985???Age:39 Y???Sex:Female Address:[address] [place] [address], [address] * Refills? Refill Loperamide HCl Capsule, 2 MG, Orally, 60, 1 capsule as needed, ever 4 hours for diarrhea, 30 days, Refills=6 * true * Date:? Generated for Chantal arana/Mariana/Matitting on:?11/18/2024 11:14 AM EDT
--- OUTSIDE RECORDS SUMMARY | 2024-11-18 11:15 | XMS_ITS | Patient Health Record ---
Author Organization [facility] Address [address] [place] [address] Care Team Providers Care Assurance Auditor Name Role Phone Satish Llanos MD Primary Care Provider Nathen Carter Jr Unavailable [phone] Allergies Allergen (clinical drug ingredient) Drug/Non Drug Allergy documented on EMR Reaction Allergy Type Onset Date Status Penicillin (uncoded) Unknown Allergy Active Reason For Referral No Information Medications Medication SIG (Take, Route, Frequency, Duration) Notes [...] 6 hrs Active Aldactone 12.5 Activ e Immunizations Vaccine Route Administration Date Status Comme nts Flu vaccine no Preserv 3 and > Unknown 07/10/2016 Admin istered Influenza Unknown 06/03/2019 Administered Influenza Unknown 06/08/2020 Administered Influenza Unknown 06/14/2021 Administered Influenza Unknown 08/26/2023 Administered Problems Problem Type SNOMED Code ICD Code Onset Dates Problem Status W/U Status Risk Notes Problem 658556450 Abn find-biliary tract (R93.2) Active confirmed Problem 923159952 Abnormal x-ray of liver (R93.2) Active confirmed Problem 446457419 Focal nodular hyperplasia of liver (K76.89) Active confirmed Problem 49133904 Diarrhea, unspecified type (R19.7) Active confirmed Encounters Encounter Location Date Provider Diagnosis [facility] [address] [facility] [address] [place] [phone] 05/13/2024 Nathen Mejias Jr Diarrhea, unspecified type R19.7 Assessments Encounter Date Diagnosis (ICD Code) Assessment Notes Treatment Notes Treatment Clinical Notes Section Notes 05/13/2024 Diarrhea, unspecified type (ICD-10 - R19.7) Plan Of Treatment Pending Test Test Name Order Date LIVER PROFILE 05/04/2020 GGT 05/04/2020 STOOL WBC 09/02/2023 GIARDIA AG, STOOL EIA 09/02/2023 OVA & PARASITES (O&P) 08/17/2021 OVA & PARASITES (O&P) 09/02/2023 CULTURE, STOOL 08/17/2021 GI PANEL 09/02/2023 Insurance Providers Payer Name Payer Address Payer Phone Subscriber Number Group Number Insured Name Patient Relationship to Insured Coverage Start Date Coverage End Date MEDICARE OF [place] [address] [place] [id number] [phone] [id number] BONY HALL Self - patient is the insured MEDICAID OF [facility] [address] [place] [id number] [phone] [id number] BONY HALL Self - patient is the insured Medical (General) History Medical History History ICD Code dilated cardiomyopathy intellectual disability, mild seizure disorder elevated cholesterol focal nodular hyperplasia valvular heart disease, mild on echocard iography Surgical History Surgery Date(Month/Year)
--- OUTSIDE RECORDS SUMMARY | 2024-11-18 11:15 | XMS_ITS | Clinical Summary ---
Author Organization [address] [facility] Address [address] [place] [address] Phone Care Team Providers Care Service Desk Analyst Name Role Phone Satish Llanos MD Primary Care Provider [phone] Allergies Active Allergy Reactions Criticality Noted Date [...] 10:15 AM EST Office Visit Orthopedic Surgery [facility] [address] [phone] Francisco Tabor, DPM Hypertrophy of nail (Primary [...] AM EDT Office Visit Orthopedic Surgery - [place] [address] [phone] Francisco Tabor, PIPO [address] [address] Health Maintenance Due Date Last Done Comments [...] Insurance MEDICARE MEDICAID - [place] Care Teams Service Desk Analyst Relationship Specialty Start Date End Date Satish Llanos MD [address] [place] [address] [address] [facility] [place] [address] PCP - General 02/12/24
--- OUTSIDE RECORDS SUMMARY | 2024-11-18 11:15 | XMS_ITS ---
Author Organization [facility] Address [address] [place] [address] Care Team Providers Care Journeyman Powerhouse Operator Name Role Phone Satish Llanos MD Primary Care Provider Nathen Catrer Jr Unavailable Results Component Value Reference Range Notes GI PANEL Reviewed date:09/19/2023 09:40:23 AM Interpretation: Performing Lab:[facility], [address] [place] [phone] Notes/Report: Campylobacter Not Detected Not Detect. Plesiomonas [...] is performed by Multiplexed PCR, utilizing the [employer] Array. REASON FOR VISIT gi panel Encounters Encounter Location Date Provider Diagnosis [facility] [address] [facility] [address] [place] [phone] 09/09/2023 Nathen Mejias Jr Diarrhea, unspecified type R19.7 Assessments Encounter Date Diagnosis (ICD Code) Assessment Notes Treatment Notes Treatment Clinical Notes Section Notes 09/09/2023 Diarrhea, unspecified type (ICD-10 - R19.7) Plan Of Treatment No Information Progress Notes * POLI HALLOB:1985 (38 yo F)Acc No.[id number]:09/09/2023 Patient:?BONY HALL :1985???Age:38 Y???Sex:Female Address:[address] [place] [address], [address] Subjective: * Chief Complaints: * ???Gi panel * Medical History:? * Surgical History:? * Hospitalization/Major Diagno stic Procedure:? * Medications:? Objective: Assessment: * Assessment: 1.?Diarrhea, unspecified typ e - R19.7? Plan: * Treatment: * Procedure Codes:? * true * Date:? Generated for Chantal arana/Mariana/eTransmitting on:?11/18/2024 11:14 AM EDT
--- OUTSIDE RECORDS SUMMARY | 2024-11-18 11:15 | XMS_ITS ---
Author Organization [facility] Address [address] [place] [phone] Care Team Providers Care Dye House Helper Name Role Phone Satish Llanos MD Primary Care Provider Nathen Carter Jr REASON FOR VISIT labs Encounters Encounter Location Date Provider Diagnosis [facility] [address] [place] [phone] 09/19/2023 Nathen Mejias Jr Plan Of Treatment No Information Progress Notes * OSCARTALI CHAOLENNOXOB:1985 (38 yo F)Acc No.[id number]:09/19/2023 Patient:?BONY HALL :1985???Age:38 Y???Sex:Female Address:[address] [place] [address], [place], [address] * true * Date:? Generated for Printi ng/Fasunig/eTransmitting on:?11/18/2024 11:14 AM EDT
== END 2024-11-18 11:11 | disposition home or self-care (01) ==
LOC: HO.HMCH 09:54
PROVIDERS: PCP Internal Medicine; Visit Provider Internal Medicine
DX: I42.0 Dilated cardiomyopathy (principal); G40.909 Epilepsy, unspecified, not intractable, without status epilepticus; E66.01 Morbid (severe) obesity due to excess calories; Z68.41 Body mass index [BMI] 40.0-44.9, adult; E78.2 Mixed hyperlipidemia; R73.02 Impaired glucose tolerance (oral)

== ENCOUNTER → 2024-11-18 09:53 | Outpatient (BNVA) | payer MEDICARE, MEDICAID, SELFPAY | PROVIDERS: PCP Internal Medicine; Visit Provider Internal Medicine | DX: I42.0 Dilated cardiomyopathy (principal); G40.909 Epilepsy, unspecified, not intractable, without status epilepticus; E66.01 Morbid (severe) obesity due to excess calories; Z68.41 Body mass index [BMI] 40.0-44.9, adult; E78.2 Mixed hyperlipidemia; R73.02 Impaired glucose tolerance (oral); Z71.3 Dietary counseling and surveillance | CPT/HCPCS: 99212 ==

== ENCOUNTER 2024-12-31 16:21 | Outpatient (AMB) | payer MEDICARE, MEDICAID, SELFPAY ==
--- OUTSIDE RECORDS SUMMARY | 2024-12-31 16:23 | XMS_ITS ---
Author Organization [facility] Address [address] [place] [phone] Care Team Providers Care Mail Handler Name Role Phone Satish Llanos MD Primary Care Provider Nathen Carter Jr REASON FOR VISIT refill Medications Medication SIG (Take, Route, Fr equency, Duration) Notes Start Date End Date Status Loperamide HCl 2 MG 1 capsule as needed Orally ever 4 hours for diarrhea for 30 days 05/29/2021 Active Encounters Encounter Location Date Provider Diagnosis [facility] [address] [place] [phone] 05/13/2024 Nathen Mejias Jr Diarrhea, unspecified type [...] Notes * OSCARJEREMIE POLIOB:1985 (39 yo F)Acc No.[id number]:05/13/2024 Patient:?BONY HALL :1985???Age:39 Y???Sex:Female Address:[address] [place] [address], [address] * Refills? Refill Loperamide HCl Capsule, 2 MG, Orally, 60, 1 capsule as needed, ever 4 hours for diarrhea, 30 days, Refills=6 * true * Date:? Generated for Chantal arana/Mariana/Matitting on:?12/31/2024 04:23 PM EDT
--- OUTSIDE RECORDS SUMMARY | 2024-12-31 16:23 | XMS_ITS ---
Author Organization [facility] Address [address] [place] [phone] Care Team Providers Care Blender Conveyor Operator Name Role Phone Satish Llanos MD Primary Care Provider Nathen Carter Jr REASON FOR VISIT labs Encounters Encounter Location Date Provider Diagnosis [facility] [address] [place] [phone] 09/19/2023 Nathen Mejias Jr Plan Of Treatment No Information Progress Notes * OSCARTALI CHAOLENNOXOB:1985 (38 yo F)Acc No.[id number]:09/19/2023 Patient:?BONY HALL :1985???Age:38 Y???Sex:Female Address:[address] [place] [address], [place], [address] * true * Date:? Generated for Printi ng/Fasunig/eTransmitting on:?12/31/2024 04:23 PM EDT
--- OUTSIDE RECORDS SUMMARY | 2024-12-31 16:24 | XMS_ITS ---
Author Organization [facility] Address [address] [place] [address] Care Team Providers Care Casting Chipper Name Role Phone Satish Llanos MD Primary Care Provider Nathen Carter Jr Unavailable [phone] Results Component Value Reference Range Notes GI PANEL Reviewed date:09/19/2023 09:40:23 AM Interpretation: Performing Lab:[facility], [address] [place] [id number] Notes/Report: Campylobacter Not Detected Not Detect. Plesiomonas [...] is performed by Multiplexed PCR, utilizing the Pro Hoop Strength Array. REASON FOR VISIT gi panel Encounters Encounter Location Date [facility] [address] [place] [phone] 09/09/2023 Nathen Mejias Jr Diarrhea, unspecified type R19.7 Assessments Encounter Date Diagnosis (ICD Code) Assessment Notes Treatment Notes Treatment Clinical Notes Section Notes 09/09/2023 Diarrhea, unspecified type (ICD-10 - R19.7) Plan Of Treatment No Information Progress Notes * POLI HALLOB:1985 (38 yo F)Acc No.[id number]:09/09/2023 Patient:?BONY HALL :1985???Age:38 Y???Sex:Female Address:[address] [place] [address], [address] Subjective: * Chief Complaints: * ???Gi panel * Medical History:? * Surgical History:? * Hospitalization/Major Diagno stic Procedure:? * Medications:? Objective: Assessment: * Assessment: 1.?Diarrhea, unspecified typ e - R19.7? Plan: * Treatment: * Procedure Codes:? * true * Date:? Generated for Chantal arana/Mariana/eTransmitting on:?12/31/2024 04:23 PM EDT
--- OUTSIDE RECORDS SUMMARY | 2024-12-31 16:24 | XMS_ITS | Clinical Summary ---
Author Organization [address] [facility] Address [address] [place] [address] Phone Care Team Providers Care Compliance Intern Name Role Phone Satish Llanos MD Primary Care Provider [phone] Allergies Active Allergy Reactions Criticality Noted Date Comments Amoxicillin 05/22/2024 Clavulanic Acid 05/22/2024 Medications acetaminophen (TYLENOL 8 HOUR) 650 mg 8 hr tablet 06/30/2024 Active spironolactone (ALDACTONE) 25 mg tablet 11/19/2024 Active OLANZapine (ZyPREXA) 7.5 mg tablet 11/05/2024 Active Nystop 100,000 unit/gram powder 10/20/2024 Ac tive methenamine hippurate (HIPREX) 1 gram tablet 11/05/2024 Activ e loperamide (IMODIUM) 2 mg capsule 05/14/2024 Active lisinopriL (PRINIVIL,ZESTRIL) 10 mg tablet 11/05/2024 Active fluticasone propionate (FLONASE) 50 mcg/actuation nasal spray 05/29/2024 Active divalproex (DEPAKOTE ER) 500 mg 24 hr tablet 11/05/2024 Act conor citalopram (CeleXA) 10 mg tablet 11/05/2024 Active Vitamin D3 25 mcg (1,000 unit) capsule 11/05/2024 Active cetirizine (ZyrTEC) 10 mg tablet 11/19/2024 Active bisoprolol (ZEBETA) 10 mg tablet 11/05/2024 Active bacitracin 500 unit/gram ointment 06/26/2024 Active ammonium lactate (AMLACTIN) 12 % cream 09/03/2024 Active azithromycin (ZITHROMAX) 500 mg tablet 12/18/2023 Active Active Problems Problem Noted Date Diagnosed Date Morbid obesity with body mas s index (BMI) of 40.0 to 44.9 in adult ([facility] V24, [facility] V28) 07/15/2024 Vitamin D deficiency 05/22/2024 UTI (urinary tract infection) 05/22/2024 Superficial bruising of abdominal wall Postprandial diarrhea 05/22/2024 Mixed hyperlipidemia 05/22/2024 Mental disability 05/22/2024 Liver mass 05/22/2024 Dilated cardiomyopathy ([facility] V24, [facility] V28 ) 05/22/2024 COVID-19 05/22/2024 Aortic insufficiency 05/22/2024 Abscess of right axilla 05/22/2024 Abdominal bloating 05/22/2024 Encounters Date Type Department Care Team Description 11/30/2024 10:00 AM EDT Office Visit Orthopedic Surgery - [address] [address] Francisco Tabor, DPM Hypertrophy of nail (Primary [...] cm (5' 4.02 ) 08/31/2024 10:[address] Body Mass Index 30.71 08/31/2024 10:20 AM EST Plan of Treatment Health Maintenance Due Date Last Done Comments Hepatitis B Vaccines (1 of 3 - 19+ 3-dose series) 2006 Cervical Cancer Screening: Pap Smear 02/15/2008 Pneumococcal Vaccine: Pediatrics (0 to 5 Years) and At-Risk Patients (6 to 64 Years) (2 of 2 - PCV) 12/06/2017 12/06/2016 COVID-19 Vaccine (4 - 2023- season) 2024 07/16/2021, 10/05/2020, 09/14/2020 Cholesterol Screening [...] age to complete this topic Meningococcal B Vaccine Aged Out No l onger eligible based on patient's age to complete this topic RSV Immunization Patients Under 20 months Aged Out No longer eligible based on patient's age to complete this topic Varicella Vaccines Aged Out No longer eligible based on patient's age to complete this [place] [id number] MED[place] - [place] Care Teams Compliance Intern Relationship Specialty Start Date End Date Satish Llanos MD [address] [place] [address] [address] [facility] [place] [address] PCP - General 02/12/24
--- OUTSIDE RECORDS SUMMARY | 2024-12-31 16:24 | XMS_ITS | Patient Health Record ---
Author Organization [facility] Address [address] [place] [address] Care Team Providers Care Gear Hobber Set Up Operator Name Role Phone Satish Llanos MD Primary Care Provider Nathen Carter Jr Unavailable Allergies Allergen (clinical drug ingredient) Drug/Non Drug [...] Problem Status W/U Status Risk Notes Problem [id number] Abn find-biliary tract (R93.2) Active confirmed Problem [id number] Abnormal x-ray of liver (R93.2) Active confirmed Problem [id number] Focal nodular hyperplasia of liver (K76.89) Active confirmed Problem [id number] Diarrhea, unspecified type (R19.7) Active confirmed Encounters Encounter Location Date Provider Diagnosis [facility] [address] [facility] [address] [place] [phone] 05/13/2024 Nathen Mejias Jr Diarrhea, unspecified type [...] [place] [address] [place] [address] [id number] BONY HALL Self - patient is the insured MEDICAID OF [facility] [address] [place] [phone] [id number] BONY HALL Self - patient is the insured Medical (General) History Medical History History ICD Code dilated cardiomyopathy intellectual disability, mild seizure disorder elevated cholesterol focal nodular hyperplasia valvular heart disease, mild on echocard iography Surgical History Surgery Date(Month/Year)
[2024-12-31 16:32] VITALS: BP 124/62; PULSE 83; TEMP 36.3; O2SAT 96; BMI 41.2
--- NOTE | 2024-12-31 16:32 | MHC.PC.OV ---
Vital Signs 12/31/24 16:32 Height 4 ft 9 in Weight 190 lb 6.4 oz BMI 41.2 BP 124/62 Blood Pressure Location Lt brachial Position Sitting Pulse 83 Pulse Source Pulse Oximeter Temp 97.3 F Temp Source Temporal Artery Scan Pulse Oximetry (%) 96 Oxygen Delivery Method Room Air Intake Visit Reasons: Rash to right arm and painful right arm pit Patent Searcher Required: No Accompanied by: [employer] Worker Allergies penicillin G Allergy (Severe, Verified 12/31/24 16:45) Hives amoxicillin [Augmentin] Allergy (Unknown, Verified 12/31/24 16:45) Unknown clavulanic acid [Augmentin] Allergy (Unknown, Verified 12/31/24 16:45) Unknown Medication List - Last Reconciled 12/31/24 by Satish Llanos MD acetaminophen ER 650 mg PO Q4H PRN ammonium lactate 12% appl topical bacitracin apply a dab topical TO AFFECTED AREA TWICE WEEKLY PRN; bacitracin zinc (Antibiotic (bacitracin zinc)) 1 appl topical TID bisoprolol fumarate 5 mg (1/2 x 10 mg) PO QAM 90 days blood pressure monitor (Blood Pressure Kit) As directed TWICE PER DAY cetirizine (Zyrtec) 10 mg PO DAILY 30 days cholecalciferol (vitamin D3) 25 mcg PO DAILY 90 days citalopram 10 mg PO DAILY clindamycin phosphate 1% 1 appl topical BID cromolyn 4% 1 drp ophthalmic (eye) QID PRN 7 days disposable gloves (Nitrile Exam Gloves) MEDIUM SIZE DX: F79, R32 EXTERNAL EIGHT TIMES A DAY divalproex ER 500 mg PO BID 90 days doxycycline hyclate 100 mg PO BID guaifenesin (Siltussin SA) 200 mg (10 mL) PO Q4H PRN lisinopril 10 mg PO DAILY methenamine hippurate 1 g PO BID 90 days nystatin 1 appl topical DAILY olanzapine 7.5 mg PO BEDTIME spironolactone 12.5 mg PO .QD Tobacco use date assessed: 12/31/24 Dental Screening Dental Screen Date: 12/31/24 Did you have a dental visit in the last 12 months?: Yes Did you have a dental problem in the last 6 months where you did not have access to dental care?: No Was dental information given to patient?: Patient has dentist HPI Rash to right arm and painful right arm pit HPI Details R arm ? bug bite but scratches them and then mild inflammation 4 days ago and the L axilla has a mild red PFSH Medical History Obesity Obesity COVID-19 virus infection Liver mass Aortic insufficiency Abscess of right axilla Abdominal bloating Superficial bruising of abdominal wall Mixed hyperlipidemia Mental disability Vitamin D deficiency Morbid obesity with BMI of 40.0-44.9, adult Dilated cardiomyopathy Epilepsy Postprandial diarrhea UTI (urinary tract infection) Surgical History No pertinent past surgical history Family History Father No problems noted. Mother Heart problem Social History Housing: Assisted Living Facility Alcohol intake: never Patient Tobacco Use Status: Never used Tobacco Tobacco use type: Cigarette e-Cigarette/Vaping Use: Never Used Second Hand Smoke Exposure: No service: No Current occupational status: disabled Cognitive needs: Yes Hearing needs: No Vision needs: Yes Questionnaire PHQ-9 Over the last 2 weeks, how often have you been bothered by any of the following problems? 1. Little interest or pleasure in doing things: not at all 2. Feeling down, depressed, or hopeless: not at all 3. Trouble falling or staying asleep, or sleeping too much: not at all 4. Feeling tired or having little energy: not at all 5. Poor appetite or overeating: not at all 6. Feeling bad about yourself - or that you are a failure or have let yourself or your family down: not at all 7. Trouble concentrating on things, such as reading the newspaper or watching television: not at all 8. Moving or speaking so slowly that other people could have noticed. Or the opposite - being so fidgety or restless that you have been moving around a lot more than usual: not at all 9. Thoughts that you would be better off or of hurting yourself in some way: not at all Total score: 0 Depression Screening Interpretation: Negative Depression Screening Done: Yes 94409 - PHQ-9 Billing: Yes Source: Developed by Drs. Jonas Stoll, Patsy Vidal, Fabián Fernandes and colleagues, with an educational haile from [employer]. Thrive Questionnaire Date Thrive assessed: 12/31/24 I am a: Parent/Caregiver What is your living situation today?: I have a steady place to live Within the past 12 months, did the food you bought not last and you didn't have the money to get more?: Never true Within the past 12 months, did you worry whether your food would run out before you got money to buy more?: Never true Do you have trouble paying for medicines?: No Do you have trouble getting transportation to medical appointments?: No Do you have trouble paying your heating and electricity bill?: No Do you have trouble taking care of your child, family member or friend?: No Do you have trouble with day-to-day activities such as bathing, preparing meals, shopping, managing finances, etc.?: No Are you currently unemployed and looking for a job?: No Are you interested in more education?: No Please select the resources that you would like help with: None Currently or been in a relationship where the following occur: No concerns reported THRIVE Score: 0 AUDIT C Alcohol Use Questionnaire (AUDIT-C) 1. How often do you have a drink containing alcohol?: Never 3. How often do you have six or more drinks on one occasion?: Never Total Score: 0 Score Reviewed/Action Taken: No SAVANNAH-7 AMB Questionnaire SAVANNAH-7 Date SAVANNAH - 7 assessed: 12/31/24 Feeling nervous, anxious, or on edge: 0 = Not at all Not being able to stop or control worryin = Not at all Worrying too much about different things: 0 = Not at all Trouble relaxin = Not at all Being so restless that it is hard to sit still: 0 = Not at all Becoming easily annoyed or irritable: 0 = Not at all Feeling afraid as if something awful might happen: 0 = Not at all Total SAVANNAH-7 score (0-4 normal; 5-9 mild; 10-14 moderate; 15-21 severe): 0 Source: Developed by Patsy Guerin, Fabián Fernandes and colleagues, with an educational haile from [employer]. Physical exam (Primary Care) Vital Signs: Last Vital Signs Temp 97.3 F 12/31/24 16:32 Pulse 83 12/31/24 16:32 BP 124/62 12/31/24 16:32 Pulse Ox 96 12/31/24 16:32 Oxygen Delivery Method Room Air 12/31/24 16:32 BMI result Body Mass Index 41.2 Tobacco/Smoking Status: Tobacco use Status Tobacco use date assessed 12/31/24 12/31/24 16:34 Patient Tobacco Use Status Never used Tobacco 12/31/24 16:50 Tobacco use type Cigarette 12/31/24 16:50 e-Cigarette/Vaping Use Never Used 12/31/24 16:50 PHQ-9: PHQ-9 Score PHQ-9: Total score 0 12/31/24 17:10 Depression Screening Interpretation: Negative Thrive Assessment: Date of Thrive Assessment Date Thrive assessed 12/31/24 12/31/24 16:34 Currently or been in a relationship where the following occur: No concerns reported Extrem Shoulder/upper arm images: 1. 3 sm erytheramtous rash with abrasion 2. L axilla mild erythematous rash Coding Level of Care Code Est Pt Level 4 (24382) Diagnoses Hidradenitis axillaris L73.2 Infected abrasion of right forearm S50.811A; L08.9 Morbid obesity with BMI of 40.0-44.9, adult E66.01; Z68.41 Additional Codes PHQ-9 - 93229 - PHQ-9 Billing: Yes ([id number]) Assessment & Plan Assessment & Plan (1) Hidradenitis axillaris: Comment: Left axilla Code(s): L73.2 - Hidradenitis suppurativa Category: Medical (2) Infected abrasion of right forearm: Code(s): S50.811A - Abrasion of right forearm, initial encounter; L08.9 - Local infection of the skin and subcutaneous tissue, unspecified Category: Medical (3) Morbid obesity with BMI of 40.0-44.9, adult: Code(s): E66.01 - Morbid (severe) obesity due to excess calories; Z68.41 - Body mass index [BMI] 40.0-44.9, adult Category: Medical Plan: Discussed that this is the risk factor for the problem on her left armpit. Patient needs to lose the weight. Eat healthy and keep moving Plan History of Present Illness The patient is a 39-year-old female presenting with an acute rash and boils. She reports the appearance of a rash and boils under her arms, which she believes was initiated by a bug bite and subsequent scratching. This scratching likely led to bacterial introduction from her nails. The boils are consistent with her diagnosis of hidradenitis suppurativa and have recurred within the last month and a few days ago. The patient has not previously been treated with antibiotics for this episode. Past medical history includes hypercholesterolemia, impaired glucose tolerance, and dilated cardiomyopathy, with recent bloodwork showing elevated cholesterol levels and mildly high glucose. Health Maintenance - Discussion on regular exercise and healthy eating to manage weight and reduce risks associated with obesity and hypercholesterolemia. - Last blood work was in August showing elevated cholesterol and mildly high glucose, suggesting the need for ongoing monitoring. Social History - Exercises regularly though noted weight gain after spending time with her sister. - Eats a healthy diet at home but may not maintain it during visits with family. Review of Systems - Skin: Reports rash and boils. - General: Denies recent antibiotic treatment for current skin issues. - HEENT: Reports itchiness in the ear with a small skin tag noticed. Physical Exam Results - Labs: August results indicating mildly elevated glucose, high cholesterol, and high triglyceride levels. Plan I will prescribe an antibiotic ointment for topical use and an oral antibiotic to address the current skin issues, considering the chronicity and recurrence associated with hidradenitis suppurativa. The patient is encouraged to refrain from scratching the affected areas to reduce infection risk. Health maintenance discussions included the importance of consistent physical activity and a healthy diet, emphasizing the impact on weight management and the control of her hypercholesterolemia and glucose intolerance. Patient was informed and verbally consented to the use of an ambient scribe for clinic note documentation during this visit. Discussion Notes I discussed the management and treatment options for the patient's presenting rash and boils, emphasizing the importance of using the prescribed antibiotics as directed to reduce infection. The patient was informed about the potential risks of bacteria spreading due to scratching and the importance of maintaining cleanliness. We reviewed lifestyle modifications to manage underlying conditions, focusing on weight control and dietary habits. Future follow-ups will focus on monitoring her condition and lifestyle adherence. Patient Instructions - Apply antibiotic ointment to the rash three times a day for seven days. - Take the prescribed oral antibiotic twice a day for seven days. - Avoid scratching the affected areas to prevent infection. - Follow a healthy diet and exercise regularly to manage weight. - Keep the affected area clean and covered with gauze if needed. - Return for follow-up in six months or if symptoms worsen before then. Medications: New bacitracin zinc (Antibiotic (bacitracin zinc)) to R forearm 1 appl topical TID 14 grams 0RF L08.9 - Local infection of the skin and subcutaneous tissue, unspecified, S50.811A - Abrasion of right forearm, initial encounter doxycycline hyclate 100 mg PO BID 14 caps 0RF L73.2 - Hidradenitis suppurativa
== END 2024-12-31 17:37 | disposition home or self-care (01) ==
LOC: HO.HMCH 16:22
PROVIDERS: PCP Internal Medicine; Visit Provider Internal Medicine
DX: S50.811A Abrasion of right forearm, initial encounter (principal); E66.01 Morbid (severe) obesity due to excess calories; Z68.41 Body mass index [BMI] 40.0-44.9, adult; L73.2 Hidradenitis suppurativa; L08.9 Local infection of the skin and subcutaneous tissue, unspecified

== ENCOUNTER → 2024-12-31 16:21 | Outpatient (BNVA) | payer MEDICARE, MEDICAID, SELFPAY | PROVIDERS: PCP Internal Medicine; Visit Provider Internal Medicine | DX: L73.2 Hidradenitis suppurativa (principal); S50.811D Abrasion of right forearm, subsequent encounter; L08.9 Local infection of the skin and subcutaneous tissue, unspecified; E66.01 Morbid (severe) obesity due to excess calories; Z68.41 Body mass index [BMI] 40.0-44.9, adult; Z71.3 Dietary counseling and surveillance | CPT/HCPCS: 96127; 99212 ==

== ENCOUNTER 2025-06-01 10:08 | Outpatient (AMB) | payer MEDICARE, MEDICAID, SELFPAY ==
[2025-06-01 10:17] VITALS: BP 128/74; PULSE 93; TEMP 36.1; O2SAT 95; BMI 41.5
--- NOTE | 2025-06-01 10:17 | A.OFFPC_ITS ---
Vital Signs 06/01/25 10:17 Height 4 ft 9 in Weight 191 lb 9.307 oz BMI 41.5 BP 128/74 Blood Pressure Location Lt brachial Position Sitting Pulse 93 Pulse Source Pulse Oximeter Temp 97.0 F Temp Source Temporal Artery Scan Pulse Oximetry (%) 95 Oxygen Delivery Method Room Air Intake Visit Reasons: pe Accompanied by: Sister Allergies penicillin G Allergy (Severe, Verified 06/01/25 10:21) Hives amoxicillin (Augmentin) Allergy (Unknown, Verified 06/01/25 10:21) Unknown clavulanic acid (Augmentin) Allergy (Unknown, Verified 06/01/25 10:21) Unknown Medication List - Last Reconciled 06/01/25 by Satish Llanos MD acetaminophen ER 650 mg PO Q4H PRN ammonium lactate 12% appl topical bacitracin apply a dab topical TO AFFECTED AREA TWICE WEEKLY PRN; bacitracin zinc (Antibiotic (bacitracin zinc)) 1 appl topical TID bisoprolol fumarate 5 mg PO DAILY blood pressure monitor (Blood Pressure Kit) As directed TWICE PER DAY cetirizine (Zyrtec) 10 mg PO DAILY 30 days cholecalciferol (vitamin D3) 25 mcg PO DAILY 90 days citalopram 10 mg PO DAILY clindamycin phosphate 1% 1 appl topical BID disposable gloves (Nitrile Exam Gloves) MEDIUM SIZE DX: F79, R32 EXTERNAL EIGHT TIMES A DAY divalproex ER 500 mg PO BID 90 days guaifenesin (Siltussin SA) 200 mg (10 mL) PO Q4H PRN lisinopril 10 mg PO DAILY methenamine hippurate 1 g PO BID 90 days nystatin 1 appl topical DAILY olanzapine 7.5 mg PO BEDTIME spironolactone 12.5 mg PO .QD Tobacco use date assessed: 06/01/25 Dental Screening Dental Screen Date: 06/01/25 Did you have a dental visit in the last 12 months?: Yes Did you have a dental problem in the last 6 months where you did not have access to dental care?: No Was dental information given to patient?: Patient has dentist HPI pe HPI Details History of Present Illness The patient is a 40-year-old female presenting for an annual physical exam. She has a history of morbid obesity and Down syndrome, which have been ongoing conditions. Her epilepsy is stable and managed with Depakote, as confirmed by neurology in January. The patient has nonischemic cardiomyopathy, with a history of a normalized left ventricular ejection fraction in 2012, which later decreased to 30-35% in 2013. She was advised to repeat an echocardiogram to monitor her cardiac function. Her hypercholesterolemia is being managed with a goal of maintaining LDL cholesterol below 130 mg/dL and triglycerides below 150 mg/dL. The patient also has thrombocytopenia, which is being monitored. She has a possible bicuspid aortic valve with mild aortic regurgitation and moderate mitral regurgitation, as noted in her cardiology review. Health Maintenance - Annual physical exam conducted - Cholesterol management with LDL goal o f less than 130 mg/dL and triglycerides less than 150 mg/dL - Echocardiogram advised for cardiac fun ction monitoring Social History Review of Systems Physical Exam General: Cooperative, healthy appearing, comfortable, no acute distress and well developed Orientation: Patient oriented x3 Limitations: No limitations Head: Normal to inspection Ears: Hearing grossly normal bilaterally Nose: Normal external nose present Face and sinus: Normal facial exam Eyes: Appearance normal, both eyes and all related structures Neck: Normal visual inspection and Yes full ROM Respiratory: Normal respiratory effort and able to speak in complete sentences. Clear to auscultation bilaterally Cardiovascular: Regular rate and rhythm. Normal S1 and S2. History of nonschemic cardiomyopathy, possible bicuspid aortic valve with mild aortic regurgitation and moderate mitral regurgitation GI: Normal to inspection. Soft to palpation and nontender Skin: No rashes or lesions noted Neuro: Patient oriented x3. History of epilepsy, stable on Depakote Extremities: Normal to inspection Results - Echocardiogram: Advised to repeat for cardiac function monitoring - Blood work (August): Normal blood cou nt, normal electrolytes, normal renal function, normal blood sugar, triglycerides 180 mg/dL, LDL 120 mg/dL, normal B12, vitamin D, and folic acid levels Plan Patient was informed and verbally consented to the use of an ambient scribe for clinic note documentation during this visit. 1. Morbid Obesity The patient is considering GLP-1 receptor agonists for weight loss management. 2. Epilepsy The patient's epilepsy is stable on Depakote, with follow-up care managed by neurology. 3. Nonischemic Cardiomyopathy The patient is advised to follow up with cardiology and repeat an echocardiogram to assess cardiac function. 4. Hypercholesterolemia The patient is advised to maintain an LDL cholesterol goal of less than 130 mg/dL and triglycerides less than 150 mg/dL. 5. Thrombocytopenia The patient's thrombocytopenia is being monitored, with no specific interventions discussed. 6. Possible Bicuspid Aortic Valve With M ild Aortic Regurgitation And Moderate Mitral Regurgitation The patient is advised to continue monitoring with cardiology for any changes in cardiac function. Discussion Notes Patient Instructions [facility] Medical History Obesity Obesity COVID-19 virus infection Liver mass Aortic insufficiency Abscess of right axilla Abdominal bloating Superficial bruising of abdominal wall Mixed hyperlipidemia Mental disability Vitamin D deficiency Morbid obesity with BMI of 40.0-44.9, adult Dilated cardiomyopathy Epilepsy Postprandial diarrhea UTI (urinary tract infection) Surgical History No pertinent past surgical history Family History Father No problems noted. Mother Heart problem Social History Housing: Assisted Living Facility Alcohol intake: never Patient Tobacco Use Status: Never used Tobacco Tobacco use type: Cigarette e-Cigarette/Vaping Use: Never Used Second Hand Smoke Exposure: No service: No Current occupational status: disabled Cognitive needs: Yes Hearing needs: No Vision needs: Yes Questionnaire PHQ-9 Over the last 2 weeks, how often have you been bothered by any of the following problems? 1. Little interest or pleasure in doing things: not at all 2. Feeling down, depressed, or hopeless: not at all 3. Trouble falling or staying asleep, or sleeping too much: not at all 4. Feeling tired or having little energy: not at all 5. Poor appetite or overeating: not at all 6. Feeling bad about yourself - or that you are a failure or have let yourself or your family down: not at all 7. Trouble concentrating on things, such as reading the newspaper or watching television: not at all 8. Moving or speaking so slowly that other people could have noticed. Or the opposite - being so fidgety or restless that you have been moving around a lot more than usual: not at all 9. Thoughts that you would be better off or of hurting yourself in some way: not at all Total score: 0 Depression Screening Interpretation: Negative Depression Screening Done: Yes Source: Developed by Drs. Jonas L. Jerman, Fabián Jean and colleagues, with an educational haile from [employer]. Thrive Questionnaire Date Thrive assessed: 12/31/24 I am a: Parent/Caregiver What is your living situation today?: I have a steady place to live Within the past 12 months, did the food you bought not last and you didn't have the money to get more?: Never true Within the past 12 months, did you worry whether your food would run out before you got money to buy more?: Never true Do you have trouble paying for medicines?: No Do you have trouble getting transportation to medical appointments?: No Do you have trouble paying your heating and electricity bill?: No Do you have trouble taking care of your child, family member or friend?: No Do you have trouble with day-to-day activities such as bathing, preparing meals, shopping, managing finances, etc.?: No Are you currently unemployed and looking for a job?: No Are you interested in more education?: No Please select the resources that you would like help with: None Currently or been in a relationship where the following occur: No concerns reported THRIVE Score: 0 AUDIT C Alcohol Use Questionnaire (AUDIT-C) 1. How often do you have a drink containing alcohol?: Never 3. How often do you have six or more drinks on one occasion?: Never Total Score: 0 SAVANNAH-7 AMB Questionnaire SAVANNAH-7 Date SAVANNAH - 7 assessed: 12/31/24 Feeling nervous, anxious, or on edge: 0 = Not at all Not being able to stop or control worryin = Not at all Worrying too much about different things: 0 = Not at all Trouble relaxin = Not at all Being so restless that it is hard to sit still: 0 = Not at all Becoming easily annoyed or irritable: 0 = Not at all Feeling afraid as if something awful might happen: 0 = Not at all Total SAVANNAH-7 score (0-4 normal; 5-9 mild; 10-14 moderate; 15-21 severe): 0 Source: Developed by Drs. Jonas Stoll, Fabián Jean and colleagues, with an educational haile from [employer]. Review of Systems Const Denies poor appetite and Denies weakness Eyes Denies no additional complaints ENT Reports Normal hearing present, Denies dizziness, Denies nasal congestion, Denies tinnitus and Denies sore throat Card Denies chest pain, Denies syncope, Denies rapid heart rate and Denies dyspnea Resp Denies cough and Denies dyspnea GI Denies change in stool character, Reports constipation, Denies diarrhea, Denies nausea and Denies vomiting Denies urinary frequency, Denies difficulty voiding and Denies dysuria Neuro Reports Normal hearing present, Denies confusion, Denies dizziness, Denies syncope and Denies weakness Psych Denies confusion Physical exam (Primary Care) Vital Signs: Last Vital Signs Temp 97.0 F 06/01/25 10:17 Pulse 93 06/01/25 10:17 BP 128/74 06/01/25 10:17 Pulse Ox 95 06/01/25 10:17 Oxygen Delivery Method Room Air 06/01/25 10:17 BMI result Body Mass Index 41.5 Tobacco/Smoking Status: Tobacco use Status Tobacco use date assessed 06/01/25 06/01/25 10:25 Patient Tobacco Use Status Never used Tobacco 06/01/25 10:20 Tobacco use type Cigarette 06/01/25 10:20 e-Cigarette/Vaping Use Never Used 06/01/25 10:20 PHQ-9: PHQ-9 Score PHQ-9: Total score 0 06/01/25 10:32 Depression Screening Interpretation: Negative Thrive Assessment: Date of Thrive Assessment Date Thrive assessed 12/31/24 06/01/25 10:20 Currently or been in a relationship where the following occur: No concerns reported Const General: No confusion Orientation/consciousness: No confusion HENMT Head: Yes normocephalic Ears: external ears normal and TM's normal bilaterally Face and sinus: Yes normal facial exam Mouth: moist mucous membranes Throat: Yes tonsils normal Eyes Conjunctivae: conjunctivae normal Pupils: Equal, round and reactive pupils present and Pupil accommodation reflex normal Direct Ophthalmoscopy: normal light reflex Neck Neck: No lymphadenopathy Thyroid: Thyroid normal Chest Chest palpation & inspection: normal inspection of the chest Resp Effort & Inspection: normal respiratory effort and no audible wheezes Auscultation: clear to auscultation bilaterally, no crackles, no wheezes and lung sounds not diminished Cardio Rate: regular rate Rhythm: regular rhythm Peripheral pulses: radial pulses present and dorsalis pedis present GI Palpation (GI): no masses Auscultation: normal bowel sounds and normoactive bowel sounds Rectal Exam - Female: deferred Skin General skin exam: no rashes or lesions noted Rashes: no rashes Neuro General: No confusion Cranial nerves: Yes Equal, round and reactive pupils present and Yes Normal hearing present Cognition (Neuro): normal cognition Gait exam (Neuro): Normal gait present Motor exam (neuro): 5/5 motor strength present throughout Deep tendon reflexes (DTR's): Right brachioradialis reflex intensity grade: 2+, Left brachioradialis reflex intensity grade: 2+, Right patellar reflex intensity grade: 2+ and Left patellar reflex intensity grade: 2+ Extrem General: No edema Office Procedures Flu Questionnaire Does the patient have a severe egg allergy?: No Does the patient have severe life threatening allergies?: No Does the patient have a fever or illness today?: No Has the patient ever had Guillain-[place] Syndrome?: No Has the patient ever had any past reaction to a flu shot?: No Immunizations Fluarix [id number] (PF) 45 mcg (15 mcg x 3)/0.5 mL IM syringe Performing Provider: Satish Llanos MD [facility] Administered by: Awilda Johnson CMA on 06/01/25 10:31 Dose Route Admin Location Dispensed Lot Number Expiration Date [facility] Distribution Lead 0.5 mL IM Left Deltoid 0.5 mL [id number] 02/22/26 [id number] [employer] VIS Given Date VIS Provided VIS Publication Date 06/01/25 Single Vaccine 24 Eligibility Eligibility Date Funding Source Not [facility] Eligible 06/01/25 Private Coding Level of Care Code Est Pt Prev Care [id number]([id number]) Diagnoses Annual physical exam Z00.00 Dilated cardiomyopathy I42.0 Mixed hyperlipidemia E78.2 Impaired glucose tolerance R73.02 Morbid obesity due to excess calories E66.01 Nonintractable epilepsy without status epilepticus, unspecified epilepsy type G40.909 Epilepsy type: unspecified Intractability: not intractable Status epilepticus: without status epilepticus Polydipsia R63.1 SOB (shortness of breath) on exertion R06.02 Assessment & Plan Assessment & Plan (1) Annual physical exam: Code(s): Z00.00 - Encounter for general adult medical examination without abnormal findings Category: Medical Plan: Patient is advised to eat healthy, keep well hydrated, keep active and have adequate sleep. (2) Dilated cardiomyopathy: Comment: Dr. Yarbrough April 2024 Code(s): I42.0 - Dilated cardiomyopathy Category: Medical Plan: Patient follows up with Cardiology and echocardiogram requested. If normal will continue to monitor. If decreased with diastolic dysfunction will diurese. (3) Mixed hyperlipidemia: Code(s): E78.2 - Mixed hyperlipidemia Category: Medical Plan: Avoid fried foods, chicken skin, eggs, butter margarine, pastries and meat. Be it pork or beef they have a lot of cholesterol LDL goal of less than 130 and triglyceride of less than 150 (4) Impaired glucose tolerance: Comment: Per staff reports: diarrhea is lessening after switching to lactose free options May recommend assessing for celiac if symptoms continue Code(s): R73.02 - Impaired glucose tolerance (oral) Category: Medical Plan: Decrease the amount of carbohydrate intake, pasta, bread, rice and potatoes are all sugar and that is aside from all the sweet stuff, remember that fruits are good but they are Sweet also. (5) Morbid obesity due to excess calories: Code(s): E66.01 - Morbid (severe) obesity due to excess calories Category: Medical Plan: Diet and exercise (6) Epilepsy: Comment: EEG negative February 2019, August 2023 Code(s): G40.909 - Epilepsy, unspecified, not intractable, without status epilepticus Category: Medical Qualifiers: Epilepsy type: unspecified Intractability: not intractable Status epilepticus: without status epilepticus Qualified Code(s): G40.909 - Epilepsy, unspecified, not intractable, without status epilepticus Plan: Patient has followed up with Neurology and controlled on Depakote (7) Polydipsia: Code(s): R63.1 - Polydipsia Category: Medical (8) SOB (shortness of breath) on exertion: Code(s): R06.02 - Shortness of breath Category: Medical Plan History of Present Illness The patient is a 40-year-old female presenting with cardiovascular concerns and seizure disorder management. The patient has a history of diastolic dysfunction, which has been monitored by cardiology. An echocardiogram is pending to assess the current status of her heart function. If the echocardiogram reveals heart weakness, diuretics may be considered as part of her management plan. The patient also has a seizure disorder, which is currently stable with no recent episodes reported. However, there are concerns about her medication adherence, as Depakote pills have been observed in her stool, indicating possible non-absorption or non-compliance. The patient experiences visual disturbances, possibly related to her eyeglasses, which cause dizziness and eye rolling. She is seeking a more accurate eye examination to address these issues. The patient reports excessive thirst, consuming up to 120 ounces of fluid before noon, yet she does not urinate frequently. This polydipsia is concerning, and further evaluation of her kidney function is planned. The patient has a BMI of 40, indicating obesity. 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 The patient experiences shortness of breath and purple lips during exertion, which are concerning symptoms that have prompted further cardiovascular evaluation, including a chest X-ray and EKG. Health Maintenance - Blood work including A1c, liver panel, cholesterol panel, and kidney function tests planned - Chest X-ray and EKG ordered for cardiovascular evaluation - Discussion of weight management strategies pending heart evaluation Social History - The patient has a pattern of frequent fluid intake, consuming up to 120 ounces before noon, which is not accompanied by frequent urination. - The patient has a BMI of 40, indicating obesity, and there is a focus on weight management. Review of Systems - Cardiovascular: Reports shortness of breath and purple lips during exertion. Denies chest pain or syncope. - Neurological: Reports dizziness and eye rolling possibly related to eyeglasses. Denies recent seizures. - Renal: Reports excessive thirst and infrequent urination. Physical Exam General: Cooperative, healthy appearing, comfortable, no acute distress and well developed Orientation: Patient oriented x3 Limitations: No limitations Head: Normal to inspection Ears: Hearing grossly normal bilaterally Nose: Normal external nose present Face and sinus: Normal facial exam Eyes: Appearance normal, both eyes and all related structures Neck: Normal visual inspection and Yes full ROM Respiratory: Normal respiratory effort and able to speak in complete sentences. Clear to auscultation bilaterally Cardiovascular: Regular rate and rhythm. Normal S1 and S2. Noted concern for lips turning purple during exertion, requiring deep breaths. GI: Normal to inspection. Soft to palpation and nontender Skin: No rashes or lesions noted Neuro: Patient oriented x3 Extremities: Normal to inspection. Noted leg cramps and difficulty lifting legs straight up. Results - Echocardiogram pending to assess heart function - Blood work including A1c, liver panel, cholesterol panel, and kidney function tests planned - Chest X-ray and EKG ordered for cardiovascular evaluation Plan Patient was informed and verbally consented to the use of an ambient scribe for clinic note documentation during this visit. 1. Diastolic Dysfunction The patient is scheduled for an echocardiogram to evaluate the current status of her diastolic dysfunction. If the echocardiogram reveals heart weakness, diuretics may be considered as part of her management plan. Further cardiovascular evaluation includes a chest X-ray and EKG to assess her symptoms of shortness of breath and purple lips during exertion. 2. Seizure Disorder The patient's seizure disorder is currently stable with no recent episodes reported. However, there are concerns about medication adherence, as Depakote pills have been observed in her stool, indicating possible non-absorption or non-compliance. Further monitoring and evaluation of medication efficacy are recommended. 3. Visual Disturbances Possibly Related To Eyeglasses The patient experiences visual disturbances, possibly related to her eyeglasses, which cause dizziness and eye rolling. She is seeking a more accurate eye examination to address these issues. 4. Polydipsia The patient reports excessive thirst, consuming up to 120 ounces of fluid before noon, yet she does not urinate frequently. This polydipsia is concerning, and further evaluation of her kidney function is planned, including blood work and a urine test. 5. Obesity With Bmi Of 40 The patient has a BMI of 40, indicating obesity. Weight management strategies are being considered, pending the results of her heart evaluation. Discussion of potential interventions will follow the cardiovascular assessment. Discussion Notes During the visit, we discussed the need for an echocardiogram to evaluate the patient's diastolic dysfunction. If the results indicate heart weakness, diuretics may be considered. We also addressed the patient's seizure disorder, noting the importance of medication adherence, as Depakote pills have been observed in her stool. Visual disturbances possibly related to eyeglasses were discussed, and the patient is seeking a more accurate eye examination. The patient's excessive thirst and infrequent urination were noted, and further evaluation of kidney function is planned. Obesity management strategies will be considered following the cardiovascular assessment. Patient Instructions - Schedule and complete the echocardiogram as soon as possible. - Monitor seizure activity and ensure medication adherence. - Seek an eye examination to address visual disturbances. - Monitor fluid intake and report any changes in urination patterns. - Follow up on weight management strategies after heart evaluation results are available. Orders: Orders Influenza [id number] Immunization Today Z23 - Encounter for immunization XR chest 2V Today R63.1 - Polydipsia UA CC w/rflx Micro + Cult Today R30.0 - Dysuria, R63.1 - Polydipsia ECG 12 lead EKG Today R63.1 - Polydipsia Medications: Changed From guaifenesin (Siltussin SA) 200 mg (10 mL) PO Q4H PRN 118 mL 4RF for cough R63.1 - Polydipsia To guaifenesin 200 mg (10 mL) PO Q4H PRN 118 mL 4RF for cough R63.1 - Polydipsia Refilled cholecalciferol (vitamin D3) 25 mcg PO DAILY 90 caps 3RF 90 days R63.1 - Polydipsia acetaminophen ER 650 mg PO Q4H PRN 30 tabs 0RF fever or pain R63.1 - Polydipsia
--- OUTSIDE RECORDS SUMMARY | 2025-06-01 12:00 | XMS_ITS | Clinical Summary ---
Author Organization 175 [facility] Address 175 [place] [address] Phone Care Team Providers Care Cloth Edge Singer Name Role Phone Satish Llanos MD Primary Care Provider [phone] Allergies Active Allergy Reactions Criticality Noted Date [...] (BMI) of 40.0 to 44.9 in adult ([facility] V24, [facility] V28) 07/15/2024 Vitamin D deficiency 05/22/2024 UTI (urinary tract infection) 05/22/2024 Superficial bruising of abdominal wall Postprandial diarrhea 05/22/2024 Mixed hyperlipidemia 05/22/2024 Mental disability 05/22/2024 Liver mass 05/22/2024 Dilated cardiomyopathy ([facility] V24, [facility] V28 ) 05/22/2024 COVID-19 05/22/2024 Aortic insufficiency 05/22/2024 Abscess of right axilla 05/22/2024 Abdominal bloating 05/22/2024 Encounters Date Type Department Care Team Description 03/25/2025 10:15 AM EDT Office Visit [place] [address] [phone] Francisco Tabor DPM Dermatophytosis of nail (Primary Dx); Hypertrophy of nail; Hammer toe of left foot from Last 3 Months Social History Tobacco [...] - - Weight 81.2 kg (179 lb) 03/25/2025 10:23 AM EDT Height 162.6 cm (5' 4.02 ) 03/25/2025 10:23 AM E DT Body Mass Index 30.71 03/25/2025 10:23 AM EDT Plan of Treatment Upcoming Encounters Date Type Department Care Team (Late st Contact Info) Description 06/29/2025 10:30 AM EST Office Visit [facility] [address] [phone] Francisco Tabor DPM [address] [address] Health Maintenance Due Date Last Done Comments Hepatitis B Vaccines (1 of 3 - 19+ 3-dose series) 2006 Cervical Cancer Screening: Pap Smear 02/15/2008 HPV Vaccines (1 - 3-dose SCDM series) 2014 Cholesterol Screening (Lipid Panel) 06/19/2024 HIV Screening 06/19/2024 Hepatitis C Screening 06/19/2024 Medicare Annual Wellness Visit 06/19/2024 Social Influencers of Health Screening 06/19/2024 Depression Screening 08/26/2024 COVID-19 Vaccine ( season) 2025 07/16/2021, 10/05/2020, 09/14/2020 Influenza Vaccine (#1) 2025 , 06/26/2023, 06/05/2022, Additional history exists DTaP,Tdap,and Td Vaccines (2 - Td or Tdap) 03/08/2032 03/08/2022 RSV Immunization Adult Patients (1 - 1-dose 75+ series) 2062 Pneumococcal Vaccine: Pediatrics (0 to 5 Years) and At-Risk Patients (6 to 49 Years) Aged Out 12/06/2016 No longer eligible based on patient's age to complete this topic HIB Vaccines Aged Out No longer eligi [...] Insurance MEDICARE MEDICAID - [place] Care Teams Cloth Edge Singer Relationship Specialty Start Date End Date Satish Llanos MD [address] [place] [address] Dr Monae [address] [facility] [place] [address] PCP - General 02/12/24
--- OUTSIDE RECORDS SUMMARY | 2025-06-01 12:00 | XMS_ITS | Patient Health Record ---
Author Organization [facility] Address [address] [place] [address] Care Team Providers Care Scale Tank Operator Name Role Phone Satish Llanos MD [...] Problem Status W/U Status Risk Notes Problem 276279051 Abn find-biliary tract (R93.2) Active confirmed Problem 539125646 Abnormal x-ray of liver (R93.2) Active confirmed Problem 597083935 Focal nodular hyperplasia of liver (K76.89) Active confirmed Problem 27344532 Diarrhea, unspecified type (R19.7) Active confirmed Plan Of Treatment Pending Test Test Name Order Date LIVER PROFILE 05/04/2020 GGT 05/04/2020 STOOL WBC 09/02/2023 GIARDIA AG, STOOL EIA 09/02/2023 OVA & PARASITES (O&P) 08/17/2021 OVA & PARASITES (O&P) 09/02/2023 CULTURE, STOOL 08/17/2021 GI PANEL 09/02/2023 Next Appt Details Provider Name:Nathen heredia , 08/30/2025 09:40:00 AM, [address] [facility], [address], [place], [address], Insurance Providers Payer Name Payer Address Payer Phone Subscriber Number Group Number Insured Name Patient Relationship to Insured Coverage Start Date Coverage End Date MEDICARE OF [place] [address] [place] [address] [id number] OSCARTALI CHAOON Self - patient is the insured MEDICAID OF [facility] [address] [place] [phone] [id number] TALI HALLON Self - patient is the insured Medical (General) History Medical History History ICD Code dilated cardiomyopathy intellectual disability, mild seizure disorder elevated cholesterol focal nodular hyperplasia valvular heart disease, mild on echocard iography Surgical History Surgery Date(Month/Year)
--- OUTSIDE RECORDS SUMMARY | 2025-06-01 12:00 | XMS_ITS | Clinical Summary ---
Author Organization [facility] Address [address] [place] [address] Phone Care Team Providers Care Tapping Machine Operator Automatic Name Role Phone Satish Llanos MD Primary Care Provider [phone] Allergies Active Allergy Reactions Criticality Noted Date Comments Amoxicillin-Pot Clavulanate 09/26/19 24 Medications No known medications Active Problems No known active problems Immunizations No known immunizations Social History Tobacco Use Types Packs/Day Years Used Date Smoking Tobacco: Never Smokeless Tobacco: Never Tobacco Cessation:Counseling Given: Not Answered Education Answer Date Recorded Are you interested in more education? Not on rodri e 12/23/2022 Are you concerned about learning? Not on file 12/23/2022 No 12/23/2022 No 12/23/2022 Digital Access Answer Date Recorded No 01/20/2023 No 01/20/2023 No 01/20/2023 Reliable internet access at home? Not on file 01/20/2023 Device with a working camera? Not on file Comments Unknown Sex and Gender Information Value Date Recorded Sex Assigned at Not on file Legal Sex Female 5:08 PM EST Gender Identity Not on file Sexual Orientation Not on file Last Filed Vital Signs Vital Sign Reading Time Taken Comments Blood Pressure 102/69 09/26/2023 1:35 PM EST Pulse 82 09/26/2023 1:35 PM EST Temperature - - Respiratory Rate 16 02/08/2011 12:00 AM EDT Oxygen Saturation 97% 09/26/2023 1:35 PM EST Inhaled Oxygen Concentration - - Weight 80.3 kg (177 lb 0.5 oz) 09/26/2023 1:35 P M EST Height 145 cm (4' 9.09 ) 09/26/2023 1:35 PM EST Body Mass Index 38.19 09/26/2023 1:35 PM EST Plan of Treatment Health Maintenance Due Date Last Done Comments DEPRESSION SCREENING 1999 HEPATITIS C SCREENING 2005 HIV ONE-TIME SCREENING (18-65 YEARS) 2005 PAP SMEAR 02/15/2008 SCREENING FOR DIABETES 2022 INFLUENZA VACCINE (#1) 2025 , 06/05/2022, 06/17/2019, Additional history exists COVID-19 VACCINE (2024- season) 2025 07/16/2021, 10/05/2020, 09/14/2020 Adult Td,Tdap Booster 03/08/2032 03/08/2022 PNEUMOCOCCAL VACCINES (0-49 years) Aged Out 12/06/2016 No longer eligible based on patient's age to complete this topic SMOKING STATUS SCREENING (Once After 26 Yrs) Completed 09/26/2023 HEPATITIS A VACCINES Aged Out No long er eligible based on patient's age to complete this topic HIB VACCINES Aged Out No longer eligi ble based on patient's age to complete this topic MENINGOCOCCAL VACCINES (ACWY) Aged Out No longer eligible based on patient's age to complete this topic MENINGOCOCCAL VACCINES (B) Aged Out N o longer eligible based on patient's age to complete this topic Medical Devices Not on file Insurance MEDICARE PART A & B [facility] MEDICARE PART A & [place] B Member Subscriber Plan / Payer (Ef fective 2007-Present) Name:Liudmila Yeh Member ID:[id number] Relation to Subscriber:Self Name:Liudmila Yeh Subscriber ID:[id number] Payer ID:[id number] Group ID:Not on file Type:Medicare Address: [facility] [employer] [address] [facility] A & [place] A & B [facility] MEDICARE PART A & [place] & B [facility] Care Teams Tapping Machine Operator Automatic Relationship Specialty Start Date End Date Satish Llanos MD [address] [place] [address] PCP - General 02/23/14 Additional Source Comments The information contained in this document represents components of the legal health record. It is not the complete legal health record.[facility]
== END 2025-06-01 11:17 | disposition home or self-care (01) ==
LOC: HO.HMCH 10:09
PROVIDERS: PCP Internal Medicine; Visit Provider Internal Medicine
DX: Z00.00 Encounter for general adult medical examination without abnormal findings (principal); I42.0 Dilated cardiomyopathy; E66.01 Morbid (severe) obesity due to excess calories; Z68.41 Body mass index [BMI] 40.0-44.9, adult; G40.909 Epilepsy, unspecified, not intractable, without status epilepticus; E78.2 Mixed hyperlipidemia; R73.02 Impaired glucose tolerance (oral); R63.1 Polydipsia; R06.02 Shortness of breath; Z23 Encounter for immunization

== ENCOUNTER → 2025-06-01 10:08 | Outpatient (BNVA) | payer MEDICARE, MEDICAID, SELFPAY | PROVIDERS: PCP Internal Medicine; Visit Provider Internal Medicine | DX: Z00.00 Encounter for general adult medical examination without abnormal findings (principal); E66.01 Morbid (severe) obesity due to excess calories; Q90.9 Down syndrome, unspecified; E78.00 Pure hypercholesterolemia, unspecified; D69.6 Thrombocytopenia, unspecified; G40.909 Epilepsy, unspecified, not intractable, without status epilepticus; I42.0 Dilated cardiomyopathy; E78.2 Mixed hyperlipidemia; R73.02 Impaired glucose tolerance (oral); R63.1 Polydipsia; R06.02 Shortness of breath; H53.8 Other visual disturbances; R30.0 Dysuria; Z23 Encounter for immunization; Z68.41 Body mass index [BMI] 40.0-44.9, adult | CPT/HCPCS: 90471; 90656; 96127; 99395 ==

== ENCOUNTER 2025-06-03 06:34 | Outpatient (REF) | payer MEDICARE, MEDICAID, SELFPAY ==
--- NOTE | ~2025-06-03 | XR_ITS ---
EXAMINATION: XR CHEST 2 VIEWS HISTORY: R63.1 - Polydipsia COMPARISON: Comparison is made with the prior examination dated 09/12/2022. FINDINGS: PA and lateral views of the chest are submitted. The lungs are expanded and clear. There is no pleural effusion, pneumothorax, or pulmonary vascular congestion. The heart is normal in size. There is mild degenerative disc disease of the spine. XR/XR chest 2V IMPRESSION: No acute cardiopulmonary abnormality. Electronically signed by: Jonas Gallegos MD 06/03/2025 07:27 AM EDT
[2025-06-03 07:06] LABS: MANUAL DIFF FLAG NO
[2025-06-03 07:21] LABS: Hematocrit 42.3 % (37.0-47.0); Hemoglobin 13.8 g/dl (12.0-16.0); Imm Gran Abs Auto 0.03 X10*3/uL (0.00-0.03); Imm Gran Pct Auto 0.4 % (0.0-0.4); Lymphocytes Absolute Auto 1.9 X10*3/uL (1.2-4.9); Mean Corpuscular HGB Conc 32.6 g/dl (31.0-35.0); Mean Corpuscular Hemoglobin 30.0 pg (27.0-33.0); Mean Corpuscular Volume 92.0 fL (80.0-98.0); NRBC Abs Auto 0.000 X10*3/uL (0.0-0.012); NRBC Pct Auto 0.0 /100WBC (0.0-0.2); Platelet Count 155 X10*3/uL (160-400); Red Blood Count 4.60 X10*6/uL (4.20-5.50); White Blood Count 6.7 X10*3/uL (4.8-10.8)
--- NOTE | 2025-06-03 07:36 | ECG_ITS ---
Test Reason : polydipsia Blood Pressure : */* mmHG Vent. Rate : 86 BPM Atrial Rate : 86 BPM P-R Int : 154 ms QRS Dur : 72 ms QT Int : 366 ms P-R-T Axes : 33 6 16 degrees QTcB Int : 437 ms Normal sinus rhythm Normal ECG When compared with ECG of 02-Feb-2022 11:39, No significant change was found Referred By: Satish Llanos Electronically Signed By: FELIX MARTINEZ MD
[2025-06-03 08:16] LABS: Alanine Aminotransferase 16 U/L (0-31); Albumin Level 4.6 g/dL (3.5-5.0); Alkaline Phosphatase 83 U/L (39-117); Anion Gap 12 (12-20); Aspartate Amino Transferase 17 U/L (5-31); Blood Urea Nitrogen 13 mg/dL (9-16); Calcium 9.7 mg/dL (8.4-10.2); Carbon Dioxide 30 mmol/L (22-29); Chloride 102 mmol/L (96-108); Cholesterol 206 mg/dL (<200); Estimated Glomerular Filt Rate > 60; HDL Cholesterol 43 mg/dL (>40); Potassium 4.1 mmol/L (3.3-5.1); Sodium 140 mmol/L (135-145); Total Protein 7.8 g/dL (6.5-8.0); Triglycerides 157 mg/dL (<150)
[2025-06-03 08:21] LABS: Free T4 (Free Thyroxine) 0.98 ng/dL (0.71-1.85); Thyroid Stimulating Hormone 3.40 uIU/mL (0.32-4.0)
[2025-06-03 08:25] LABS: HBS Num1 1.75 mIU/mL (0-7.99); HBc Num1 0.10 S/CO (0.00-0.79); HBsAGNum1 0.32 S/CO (0.00-0.99); Hepatitis B Surface Antigen Negative (Negative); ~HepC Num1 0.09 S/CO (0.00-0.79); ~Hepatitis B Surface Antibody NONREACTIVE (Nonreactive); ~Hepatitis C Antibody Nonreactive (Nonreactive)
[2025-06-03 08:38] LABS: Folate 11.4 ng/mL (> or = 4.0); Vitamin B12 422 pg/mL (200-900)
[2025-06-04 11:10] LABS: Appearance Urine Clear; Glucose Urine UA Negative (Negative); PH 6.5 (5.0-9.0); Specific Gravity - Urine <= 1.005 (1.005-1.025); UMIC TRIGGER UACC YES
[2025-06-04 11:17] LABS: UACC Culture Trigger YES
[2025-06-07 00:19] LABS: TS Negative Control Passed; TS Panel A 0; TS Panel B 1; TS Positive Control Passed; TSpotTB Negative (Negative)
== END 2025-06-03 06:35 | disposition home or self-care (01) ==
LOC: HO.XRAY 06:34
PROVIDERS: PCP Internal Medicine; Visit Provider Internal Medicine
DX: R63.1 Polydipsia (principal); R73.02 Impaired glucose tolerance (oral); G40.909 Epilepsy, unspecified, not intractable, without status epilepticus; E78.00 Pure hypercholesterolemia, unspecified; R79.89 Other specified abnormal findings of blood chemistry; Z11.1 Encounter for screening for respiratory tuberculosis
CPT/HCPCS: 36415; 71046; 80053; 80061; 80164; 81001; 81003; 82306; 82607; 82746; 83036; 84439; 84443; 85025; 86481; 86704; 86706; 86803; 87086; 87340; 93005

== ENCOUNTER → 2025-06-03 07:13 | Outpatient (BNV) | payer MEDICARE, MEDICAID, SELFPAY | PROVIDERS: PCP Internal Medicine; Visit Provider Radiology Diagnostic Radiology | DX: R63.1 Polydipsia (principal) | CPT/HCPCS: 71046 ==

== ENCOUNTER → 2025-06-03 07:36 | Outpatient (BNV) | payer MEDICARE, MEDICAID, SELFPAY | PROVIDERS: PCP Internal Medicine; Visit Provider Internal Medicine Cardiovascular Disease | DX: R63.1 Polydipsia (principal) | CPT/HCPCS: 93010 ==

== ENCOUNTER 2025-06-29 12:50 | Outpatient (REF) | payer MEDICARE, MEDICAID, SELFPAY ==
--- OUTSIDE RECORDS SUMMARY | 2025-06-29 10:30 | XMS_ITS | Encounter Summary ---
Author Organization [facility] Address [address] [place] [address] Care Team Providers Care Weight Analyst Name Role Phone Satish Llanos MD Primary Care Provider [phone] Reason for Visit * Reason Comments Nail Problem dystrophy Encounter Details Date Type Department Care Team ([facility] st Contact Info) Description 06/29/2025 10:30 AM EST Office Visit Orthopedic Surgery - [address] [address] Francisco Tabor DPM [address] [place] [phone] Hammer toe of left foot (Primary Dx); [...] (BMI) of 40.0 to 44.9 in adult ([facility]) E66.01, Z68.41 Dilated cardiomyopathy ([facility]) I42.0 Postprandial diarrhea K52.9 UTI (urinary [...] iscompletely grown out Recommend considering topical clotrimazole [id number] Regular pedal hygiene was discussed and reviewed [...] PM EST Office Visit Orthopedic Surgery - [address] [address] Francisco Tabor DPM [address] [place] [phone] documented as of this encounter Visit Diagnoses Diagnosis Hammer toe of left foot- Primary Hypertrophy of nail Other specified disease of nail Dermatophytosis of nail documented in this encounter Care Teams Weight Analyst Relationship Specialty Start Date End Date Satish Llanos MD [address] [place] [address] 101 [facility] [place] [address] PCP - General 02/12/24 documented as of this encounter
--- OUTSIDE RECORDS SUMMARY | 2025-06-29 15:28 | XMS_ITS | Clinical Summary ---
Author Organization 175 [facility] Address 175 [place] [address] Phone Care Team Providers Care Regional Marketing Manager Name Role Phone Satish Llanos MD Primary Care Provider [phone] Allergies Active Allergy Reactions Criticality Noted Date [...] (BMI) of 40.0 to 44.9 in adult ([facility] V24, [facility] V28) 07/15/2024 Vitamin D deficiency 05/22/2024 UTI (urinary tract infection) 05/22/2024 Superficial bruising of abdominal wall Postprandial diarrhea 05/22/2024 Mixed hyperlipidemia 05/22/2024 Mental disability 05/22/2024 Liver mass 05/22/2024 Dilated cardiomyopathy ([facility] V24, [facility] V28 ) 05/22/2024 COVID-19 05/22/2024 Aortic insufficiency 05/22/2024 Abscess of right axilla 05/22/2024 Abdominal bloating 05/22/2024 Encounters Date Type Department Care Team Description 06/29/2025 10:30 AM EST Office Visit Orthopedic [place] [address] [phone] Francisco Tabor DPM Hammberry toe of left foot (Primary Dx); Hypertrophy of nail; Dermatophytosis of nail from Last 3 Months [...] Description 09/29/2025 3:30 PM EST Office Visit [facility] [address] [phone] Francisco Tabor DPM [address] [place] [address] Health Maintenance Due Date Last Done Comments [...] Vaccine ( season) 2025 07/16/2021, 10/05/2020, 09/14/2020 DTaP,Tdap,and Td Vaccines (2 - Td or Tdap) 03/08/2032 03/08/2022 RSV Immunization Adult Patients (1 - 1-dose 75+ series) 2062 Pneumococcal Vaccine: Pediatrics (0 to 5 Years) and At-Risk Patients (6 to 49 Years) Aged Out 12/06/2016 No longer eligible based on patient's age to complete this topic Influenza Vaccine Completed 06/01/2025, , 06/26/2023, Additional history exists HIB Vaccines Aged Out [...] Insurance MEDICARE MEDICAID - [place] Care Teams Regional Marketing Manager Relationship Specialty Start Date End Date Satish Llanos MD [address] [place] [address] Dr Monae [address] [facility] [place] [address] PCP - General 02/12/24
--- OUTSIDE RECORDS SUMMARY | 2025-06-29 15:28 | XMS_ITS | Clinical Summary ---
Author Organization [facility] Address [address] [facility] [address] [place] [address] Phone Care Team Providers Care Student Driving Instructor Name Role Phone Satish Llanos MD Primary Care Provider [phone] Allergies Active Allergy Reactions Criticality Noted Date [...] file Insurance MEDICARE PART A & B [facility] MEDICARE PART A & [place] B Member Subscriber Plan / Payer (Ef fective 2007-Present) Name:Liudmila Yeh Member ID:[id number] Relation to Subscriber:Self Name:Liudmila Yeh Subscriber ID:[id number] Payer ID:[id number] Group ID:Not on file Type:Medicare Address: [facility] [employer] [address] [facility] A & [place] MED[place] PART A & B [facility] MEDICARE PART A & [place] A & B [facility] Care Teams Student Driving Instructor Relationship Specialty Start Date End Date Satish Llanos MD [address] [place] [phone] PCP - General 02/23/14 Additional Source Comments The information contained in this document represents components of the legal health record. It is not the complete legal health record.[facility]
--- OUTSIDE RECORDS SUMMARY | 2025-06-29 15:28 | XMS_ITS | Patient Health Record ---
Author Organization [facility] Address [address] [place] [address] Care Team Providers Care Flatwork Presser Name Role Phone Satish Llanos MD Primary Care Provider Nathen Carter Jr Unavailable [phone] Allergies Allergen (clinical drug ingredient) Drug/Non Drug Allergy documented on EMR Reaction Allergy Type Onset Date Status Penicillin (uncoded) Unknown Allergy Active Reason For Referral No Information Medications Medication SIG (Take, Route, Frequency, Duration) Notes Start Date End Date Status ZyPREXA 10 MG 1 tablet Orally Once a day; Duration: 30 day(s) Active Vitamin D-3 25 MCG (1000 UT) 1 capsule O rally Once a day; Duration: 30 day(s) Active Vitamin D3 1000 UNIT [...] as needed Orally ever 4 hours for diarrhea; Duration: 30 days 05/29/2021 Active Nasonex 50 MCG/ACT [...] MG 1 tablet Orally Onc e a day; Duration: 30 day(s) Active CeleXA 10 MG 1 [...] Problem Status W/U Status Risk Notes Problem Imaging of biliary tract abnormal (497683117) Abn find-biliary tract (R93.2) Active confirmed Problem Abnormal findings diagnostic imaging of liver and biliary tract (966042821) Abnormal x-ray of liver (R93.2) Active confirmed Problem Focal nodular hyperplasia of liver (979634066) Focal nodular hyperplasia of liver (K76.89) Active confirmed Problem Diarrhea (09098680) Diarrhea, unspecified type (R19.7) Active confirmed Plan Of Treatment Pending Test Test Name Order Date LIVER PROFILE 05/04/2020 GGT 05/04/2020 STOOL WBC 09/02/2023 GIARDIA AG, STOOL EIA 09/02/2023 OVA & PARASITES (O&P) 08/17/2021 OVA & PARASITES (O&P) 09/02/2023 CULTURE, STOOL 08/17/2021 GI PANEL 09/02/2023 Next Appt Details Provider Name:Nathen heredia Jr, 08/30/2025 09:40:00 AM, [address] [place] [address], [address], [place], [address], Insurance Providers Payer Name Payer Address Payer Phone Subscriber Number Group Number Insured Name Patient Relationship to Insured Coverage Start Date Coverage End Date MEDICARE OF [place] [address] [place] [address] [id number] BONY HALL Self - patient is the insured MEDICAID OF [facility] [address] [place] [phone] [id number] BONY HALL Self - patient is the insured Medical (General) History Medical History History ICD Code dilated cardiomyopathy intellectual disability, mild seizure disorder elevated cholesterol focal nodular hyperplasia valvular heart disease, mild on echocard iography Surgical History Surgery Date(Month/Year)
== END 2025-06-29 12:51 | disposition home or self-care (01) ==
LOC: HO.LAB 12:50
PROVIDERS: PCP Internal Medicine; Visit Provider Internal Medicine
DX: Z13.89 Encounter for screening for other disorder (principal)

== ENCOUNTER 2025-06-30 09:10 | Outpatient (REF) | payer MEDICARE, MEDICAID, SELFPAY ==
--- OUTSIDE RECORDS SUMMARY | 2025-06-29 10:30 | XMS_ITS | Encounter Summary ---
Author Organization [facility] Address [address] [place] [address] Care Team Providers Care Campus Recruiting Internship Name Role Phone Satish Llanos MD Primary Care Provider [phone] Reason for Visit * Reason Comments Nail Problem dystrophy Encounter Details Date Type Department Care Team ([facility] st Contact Info) Description 06/29/2025 10:30 AM EST Office Visit Orthopedic Surgery - [address] [address] Francisco Tabor DPM [address] [place] [phone] Hammer toe of left foot (Primary Dx); Hypertrophy of nail; Dermatophytosis of nail Social History Tobacco Use Types Packs/Day Years Used Date Smoking Tobacco: Never Assessed Comments Unknown Sex and Gender Information Value Date Recorded Sex Assigned at Not on file Legal Sex Female 5:09 PM EST Gender Identity Not on file Sexual Orientation Not on file documented as of this encounter Progress Notes * Francisco Tabor DPM - 06/29/2025 10:30 AM EST S: Patient presents with a present notes that she bumped her right great toe she had some lifting of the nail plate and discoloration the nail is irritating painful to her she also notes that her left fifth toe is improving and thick and painful the rest of her toenails are relatively hygienic cut straight across reports the nail continues to grow back relatively better she has been using Vaseline as instructed since last appointment continues to wear wider shoes occasionally has irritation of hernails with some discoloration ROS: GENERAL: Pt denies nausea, fever, vomiting, chills, or shortness of breath. Pt in NAD. CARDIOLOGY: pt denies chest pain, palpitations LUNGS: pt denies shortness of breath MUSCULOSKELETAL: See HPI, otherwise no joint pain or swelling, back pain, or muscle pain. SKIN: see HPI, otherwise no lesions, rash or itching NEURO: No persistent headache, weakness or numbness The remainder of the review of systems is noncontributory PAST MEDICAL HISTORY: Patient Active Problem List Diagnosis Code COVID-19 U07.1 Liver mass R16.0 Aortic insufficiency I35.1 Abscess of right axilla L02.411 Abdominal bloating R14.0 Superficial bruising of abdominal wall S30.1XXA Mixed hyperlipidemia E78.2 Mental disability F79 Vitamin D deficiency E55.9 Morbid obesity with body mass index (BMI) of 40.0 to 44.9 in adult ([facility]) E66.01, Z68.41 Dilated cardiomyopathy ([facility]) I42.0 Postprandial diarrhea K52.9 UTI (urinary tract infection) N39.0 SOCIAL HISTORY: Social History Tobacco Use Smoking status: Not on file Smokeless tobacco: Not on file Substance Use Topics Alcohol use: Not on file History Never marked as reviewed. ACTIVE MEDICATIONS: No current outpatient medications on file. No current facility-administered medications for this visit. ALLERGIES: Amoxicillin and Clavulanic acid PHYSICAL EXAM: Height 5' 4 (1.626 m), weight 179 lb (81.2 kg). Estimated body mass index is 30.73 kg/m?? as calculated from the following: Height as of this encounter: 5' 4 (1.626 m). Weight as of this encounter: 179 lb (81.2 kg). PODIATRIC EXAMINATION: GENERAL: Patient appears well nourished, with NAD. VASCULAR: Dorsalis pedis pulses are 2/4 bilaterally and Posterior tibial pulses are 2/4 bilaterally. Capillary filling time within normal limits the digits. No pallor on elevation or rubor on dependency. Positive hair growth. No varicosities. Denies rest pain or claudication pain. NEUROLOGICAL: Sharp/dull sensation intact, protective sensation intact 10/10 with 5.07 semmes tam bilaterally, vibratory sensation with tuning fork intact to the tibial tuberosity. ORTHOPEDIC: Good muscle strength 5/5 of all flexors and extensors. Dorsi flexion of ankle ,10 degrees, plantar flexion WNL. No muscle atrophy. DERMATOLOGICAL:.Thickening of the left fifth digit noted toenail with hypertrophic nail plate rightgreat toe with onycholysis of the distal 10% with dried subungual hematoma no signs of infection BIOMECHANICS: STJ ROM wnl, MTJ ROM wnl, 1st MPJ ROM wnl. IMAGING: IMPRESSION: 1. Hammer toe of left foot 2. Hypertrophy of nail 3. Dermatophytosis of nail PLAN: Pt was seen and examined, history reviewed. Abnormal nail plate removed for symptomatic relief remaining nail was been removed at this point iscompletely grown out Recommend considering topical clotrimazole [id number] Regular pedal hygiene was discussed and reviewed cut the nail straight across warm water soaks avoiding lotions in between the digits Atrophic hypertrophic changes of the left fifth digit discussed likely secondary to adductovarus deformity Revisited possible benefits from silicone toe sleeves wider shoe gear and pedal deformity patient is not a good surgical candidate but hammertoe corrective procedures can be pursued would likely recommend pursuing nail softening treatments prior to pursuing more aggressive reconstructive proceduresfrom musculoskeletal standpoint Continue with wider shoe gear Patient follow-up in 3 to 6 months Francisco Tabor DPM documented in this encounter Plan of Treatment Upcoming Encounters Date Type Department Care Team (Late st Contact Info) Description 09/29/2025 3:30 PM EST Office Visit Orthopedic Surgery - [address] [address] Francisco Tabor DPM [address] [place] [phone] documented as of this encounter Visit Diagnoses Diagnosis Hammer toe of left foot- Primary Hypertrophy of nail Other specified disease of nail Dermatophytosis of nail documented in this encounter Care Teams Campus Recruiting Internship Relationship Specialty Start Date End Date Satish Llanos MD [address] [place] [address] [address] [facility] [place] [address] PCP - General 02/12/24 documented as of this encounter
[2025-06-30 09:49] LABS: Appearance Urine Clear; Glucose Urine UA Negative (Negative); PH 6.5 (5.0-9.0); Specific Gravity - Urine 1.015 (1.005-1.025); UMIC TRIGGER UACC YES
[2025-06-30 09:54] LABS: UACC Culture Trigger YES
--- OUTSIDE RECORDS SUMMARY | 2025-06-30 09:56 | XMS_ITS | Clinical Summary ---
Author Organization [facility] Address [address] [place] [address] Phone Care Team Providers Care Automatic Typewriter Inspector Name Role Phone Satish Llanos MD Primary Care Provider [phone] Allergies Active Allergy Reactions Criticality Noted Date [...] file Insurance MEDICARE PART A & B [facility] MEDICARE PART A & [place] B Member Subscriber Plan / Payer (Ef fective 2007-Present) Name:Liudmila Yeh Member ID:[id number] Relation to Subscriber:Self Name:Liudmila Yeh Subscriber ID:[id number] Payer ID:[id number] Group ID:Not on file Type:Medicare Address: [facility] [employer] [address] [facility] A & B [place] A & B [facility] MEDICARE PART A & B [place] A & B [facility] Care Teams Automatic Typewriter Inspector Relationship Specialty Start Date End Date Satish Llanos MD [address] [place] [address] PCP - General 02/23/14 Additional Source Comments The information contained in this document represents components of the legal health record. It is not the complete legal health record.[facility]
--- OUTSIDE RECORDS SUMMARY | 2025-06-30 09:56 | XMS_ITS | Clinical Summary ---
Author Organization [address] [facility] Address [address] [place] [address] Phone Care Team Providers Care Coal Pulverizing Operator Name Role Phone Satish Llanos MD Primary Care Provider [phone] Allergies Active Allergy Reactions Criticality Noted Date [...] (BMI) of 40.0 to 44.9 in adult ([facility] V24, [facility] V28) 07/15/2024 Vitamin D deficiency 05/22/2024 UTI (urinary tract infection) 05/22/2024 Superficial bruising of abdominal wall Postprandial diarrhea 05/22/2024 Mixed hyperlipidemia 05/22/2024 Mental disability 05/22/2024 Liver mass 05/22/2024 Dilated cardiomyopathy ([facility] V24, [facility] V28 ) 05/22/2024 COVID-19 05/22/2024 Aortic insufficiency 05/22/2024 Abscess of right axilla 05/22/2024 Abdominal bloating 05/22/2024 Encounters Date Type Department Care Team Description 06/29/2025 10:30 AM EST Office Visit [facility] [place] [address] [phone] Francisco Tabor DPM [place] toe of left [...] Description 09/29/2025 3:30 PM EST Office Visit [facility] [address] [phone] Francisco Tabor DPM [address] [place] [address] Health Maintenance Due Date Last Done Comments [...] Insurance MEDICARE MEDICAID - [place] Care Teams Coal Pulverizing Operator Relationship Specialty Start Date End Date Satish Llanos MD [address] [place] [address] [address] [facility] [place] [address] PCP - General 02/12/24
--- OUTSIDE RECORDS SUMMARY | 2025-06-30 09:56 | XMS_ITS | Patient Health Record ---
Author Organization [facility] Address [address] [place] [address] Care Team Providers Care Motor Room Controller Name Role Phone Satish Llanos MD Primary [...] Notes Problem Imaging of biliary tract abnormal (472791335) Abn find-biliary tract (R93.2) Active confirmed Problem Abnormal findings diagnostic imaging of liver and biliary tract (749838585) Abnormal x-ray of liver (R93.2) Active confirmed Problem Focal nodular hyperplasia of liver (390291243) Focal nodular hyperplasia of liver (K76.89) Active confirmed Problem Diarrhea (89361015) Diarrhea, unspecified type (R19.7) Active confirmed Plan Of Treatment Pending Test Test Name Order Date LIVER PROFILE 05/04/2020 GGT 05/04/2020 STOOL WBC 09/02/2023 GIARDIA AG, STOOL EIA 09/02/2023 OVA & PARASITES (O&P) 08/17/2021 OVA & PARASITES (O&P) 09/02/2023 CULTURE, STOOL 08/17/2021 GI PANEL 09/02/2023 Next Appt Details Provider Name:Nathen heredia Jr, 08/30/2025 09:40:00 AM, [address] [place] [address], [address], [place], [address], Insurance Providers Payer Name Payer Address Payer Phone Subscriber Number Group Number Insured Name Patient Relationship to Insured Coverage Start Date Coverage End Date MEDICARE OF [place] [address] [place] [address] [id number] BONY HALL Self - patient is the insured MEDICAID OF [facility] [address] [place] [phone] [id number] BONY HALL Self - patient is the insured Medical (General) History Medical History History ICD Code dilated cardiomyopathy intellectual disability, mild seizure disorder elevated cholesterol focal nodular hyperplasia valvular heart disease, mild on echocard iography Surgical History Surgery Date(Month/Year)
== END 2025-06-30 09:11 | disposition home or self-care (01) ==
LOC: HO.LNP 09:10
PROVIDERS: Visit Provider Internal Medicine
DX: R39.9 Unspecified symptoms and signs involving the genitourinary system (principal)
CPT/HCPCS: 81001; 87086